=== PATIENT | male | born 1975 | race Caucasian/White ===

== ENCOUNTER 2020-12-20 13:16 | Emergency (ER) | payer OTHER, SELFPAY ==
[2020-12-20 13:17] VITALS: BP 161/98; PULSE 83; RESP 18; TEMP 35.8; O2SAT 97; BMI 67.3
--- NOTE | 2020-12-20 13:43 | EKG12_ITS ---
Test Reason : SOB Blood Pressure : / mmHG Vent. Rate : 078 BPM Atrial Rate : 078 BPM P-R Int : 156 ms QRS Dur : 096 ms QT Int : 404 ms P-R-T Axes : 050 061 009 degrees QTc Int : 460 ms Poor data quality, interpretation may be adversely affected Normal sinus rhythm Normal ECG Confirmed by JACKIE COVINGTON, JONATHAN ([id number]), editor producer JESS FIGUEROA ([id number]) on 12/24/2020 1:58:11 PM Referred By: ZAYRA Confirmed By:JONATHAN MEJIA MD
--- NOTE | 2020-12-20 13:44 | EDS_ITS ---
HPI History of Present Illness Chief Complaint: Shortness of Breath Informant: patient Onset/Context/Timing Onset: Today (For 5 or 6 hours now since he got up this morning) Context: gradual Timing: Continuous Quality: Positive for - (Wheezing, shortness of breath) Current Severity: Moderate Maximum Severity: Moderate Worsened by: Exertion and Coughing Relieved by: Albuterol (Partially and temporarily only) Associated Symptoms Chest Pain: Positive for Pressure and Tightness Narrative Narrative: Patient with chest pain or shortness of breath this morning it felt like his asthma. He denies any recent illness, he attributes likely being outside in the pollen along with seasonal allergies flaring up his symptoms. He had Covid in May, relatively mild illness and recovered okay, has had no vaccines yet. No known history of heart coronary disease. Prior similar symptoms: Yes (Asthma/COPD) [facility] Medical History (Updated 12/20/20 @ 15:[address] Justin Diamond MD) Asthma Home Medications prednisone 40 mg PO DAILY #8 tablet 12/20/20 [Rx Last Taken Unknown] Allergy/AdvReac Type Severity Reaction Status Date / Time azithromycin [From Zithromax] Allergy Swelling Verified 12/20/20 13:19 codeine Allergy Swelling Verified 12/20/20 13:19 Latex, Natural Rubber Allergy Anaphylaxis Verified 12/20/20 13:19 ondansetron [From Zofran] Allergy Vomiting Verified 12/20/20 13:19 Social History Smoking Status: Current every day smoker ROS [facility] ED Constitutional Constitutional ED: Denies chills or fever(s) Eyes Eyes: Denies change in vision or diplopia ENT ENT ED: Denies rhinorrhea or sore throat Cardiovascular Cardiovascular: Reports as per HPI and chest pain; Denies palpitations Respiratory/Chest Respiratory/Chest: Reports as per HPI, cough, dyspnea and other Details: Coughs some clear phlegm up every morning due to wearing CPAP overnight, no changes today or worsening or changes in color/blood Gastrointestinal Gastrointestinal: Denies abdominal pain, diarrhea, nausea or vomiting Genitourinary Genitourinary ED: Denies dysuria or hematuria Musculoskeletal Musculoskeletal: Denies back pain or neck pain Integumentary Denies abscess or rash Neurologic Neurologic: Denies headache(s), paresthesias or weakness Psychiatric Psychiatric: Denies anxiety or suicidal thoughts EXAM Physical Exam Const Vital Signs: 12/20/20 13:17 12/20/20 14:06 Temperature 96.4 F L Temperature Source Temporal Pulse Rate 83 85 Respiratory Rate 18 18 Respiratory Effort Normal Respiratory Depth Normal Respiratory Pattern Normal Blood Pressure 161/98 H Blood Pressure Mean 119 Pulse Ox 97 94 Oxygen Delivery Method Room Air Room Air Positive well nourished, well developed and obese Constitutional Narrative: Speaking in full sentences no respiratory distress General Appearance ED: well developed and NAD Nutritional Appearance: obese HEENT Reports moist mucous membranes normocephalic and atraumatic Eyes PERRL and EOMs intact bilaterally Neck full ROM and supple Resp normal respiratory effort and clear to auscultation bilaterally Cardio regular rate, regular rhythm and no murmurs GI non-tender and non-distended Auscultation: normoactive bowel sounds Palpation: soft Back/Spine no CVA tenderness General Back: other FROM Extremity normal to inspection General Extremety ED: Negative for edema, pulses abnormal or tenderness General Extremity: Negative for edema or pulses abnormal Neuro oriented x3, CN's II-XII intact bilaterally and no sensory deficits noted Sensorium / Orientation: awake and alert Motor Exam: strength 5/5 throughout Skin no rashes or lesions noted and no wounds MDM MDM MDM Narrative Medical decision making narrative: X-ray and EKG are both normal, patient feels much better with regards to his dyspnea and chest discomfort after several nebulizer treatments. I believe this is consistent with asthma exacerbation, he is a diabetic and is on Jardiance once daily, we discussed the possibilities of his blood sugars elevating with prednisone, and mutually agreed to put him on half dose prednisone, 20 mg daily for 5 days which will probably help with his allergies as well. He is comfortable with that plan. Radiography Chest X-Ray - ED: 1 View, Read by ED Physician, No Acute Disease and No Infiltrates Diagnostic Testing: Radiology Impression Chest X-Ray 12/20/20 14:16 IMPRESSION: Normal x-ray examination of the chest. Electronically Signed: Tan Duarte MD at 14:32 EDT , Service support , EKG Initial EKG: Attestation: I personally reviewed and interpreted this EKG as follows: Interpretation: Sinus Rhythm and No Acute Injury Pattern Prior EKG tracings: available for review Prior: Unchanged Discharge Plan Triage Chief Complaint: Shortness of Breath ED Provider: Justin Diamond Dx/Rx/DC Orders Clinical Impression: Acute asthma exacerbation Instructions: ED Asthma, Acute (Adult) Prescriptions: New prednisone 20 MG tablet 40 mg PO DAILY Qty: 8 RF: 0 Stand Alone Forms: ED Work / School Excuse Primary Care Provider: Care Physician,No Primary Referrals: Care Physician,No Primary [Primary Care Provider] - (Your doctor as needed or return to the ER if worse despite prednisone) Disposition Disposition: Home, self care
[2020-12-20] MEDS: Ipratropium/Albuterol Sulfate 3 ML AMPUL.NEB INHALATION (13:59)
[2020-12-20] MEDS: Albuterol 2.5 MG/3 ML VIAL.NEB. INHALATION ×2 (14:04→14:05)
[2020-12-20 14:06] VITALS: PULSE 85; RESP 18; O2SAT 94
--- NOTE | 2020-12-20 14:16 | RAD_ITS ---
STUDY: X-RAY CHEST REASON FOR EXAM: Male, 45 years old. Cp/sob TECHNIQUE: Single AP portable view of the chest. COMPARISON: None. FINDINGS: The lungs are clear and expanded. There is no demonstrated pleural abnormality. Normal size heart. Normal mediastinum and julianne. Normal visualized pulmonary arteries. Normal visualized aortic arch and descending thoracic aorta. Normal visualized thoracic spine. Normal visualized ribs, clavicles, and shoulders. There is no demonstrated abnormality of the visualized soft tissue structures of the upper abdomen. RAD/Chest 1 View (Portable) IMPRESSION: Normal x-ray examination of the chest. Electronically Signed: Tan Duarte MD at 14:32 EDT , Service support ,
[2020-12-20] MEDS: predniSONE 20 MG Tablet PO (16:02)
[2020-12-20 16:09] VITALS: BP 161/98; PULSE 88; RESP 18; O2SAT 97
== END 2020-12-20 16:11 | disposition home or self-care (01) ==
PROVIDERS: Emergency Provider Emergency Medicine
DX: J45.901 Unspecified asthma with (acute) exacerbation (principal); E66.9 Obesity, unspecified; F17.200 Nicotine dependence, unspecified, uncomplicated; Z79.52 Long term (current) use of systemic steroids; Z79.899 Other long term (current) drug therapy
CPT/HCPCS: 71045; 93005; 94640; 99251; 99283; A4216; G0463

== ENCOUNTER 2021-06-29 11:25 | Emergency (ER) | payer OTHER, SELFPAY ==
[2021-06-29 11:26] VITALS: BP 154/116; PULSE 82; RESP 18; TEMP 35.8; O2SAT 94; BMI 61.7
[2021-06-29 11:41] VITALS: BP 159/98; PULSE 82; RESP 15; O2SAT 96
--- NOTE | 2021-06-29 12:12 | VDLE_ITS ---
Reason For Study: Pain Procedure LEFT This is a venous duplex using B-mode, color GSV is normal. flow and spectral Doppler. CFV is compressible, spontaneous, phasic, Exam performed portable in ED. competent, and demonstrates normal A preliminary report was called and/or faxed augmentation. to Shayna. FV is compressible, spontaneous, phasic, competent and demonstrates normal augmentation. POP V is compressible, spontaneous, phasic, competent and demonstrates normal augmentation. T/P Trunk is compressible. PTV is compressible. LT PerV is compressible. VL/Venous Duplex US, Unilateral Interpretation Summary There is no evidence of left lower extremity deep vein thrombosis. Left great s aphenous vein appears patent and compressible segmentally. Ordering Physician: Airam Corral Performed By: Pao Huber RVT
--- NOTE | 2021-06-29 12:13 | EKG12_ITS ---
Test Reason : CP Blood Pressure : / mmHG Vent. Rate : 081 BPM Atrial Rate : 081 BPM P-R Int : 146 ms QRS Dur : 094 ms QT Int : 388 ms P-R-T Axes : 052 058 -05 degrees QTc Int : 450 ms Normal sinus rhythm Normal ECG Confirmed by JACKIE COVINGTON, JONATHAN ([id number]), features editor JESS FIGUEROA ([id number]) on 06/30/2021 10:40:32 AM Referred By: CLEMENTE Confirmed By:JONATHAN MEJIA MD
--- NOTE | 2021-06-29 12:13 | RAD_ITS ---
STUDY: X-RAY CHEST REASON FOR EXAM: Male, 46 years old. CP TECHNIQUE: Single AP portable view of the chest. COMPARISON: December 20, 2020 chest x-ray FINDINGS: The lungs are clear and expanded. Stable lung markings. There is no demonstrated pleural abnormality. Normal size heart. Normal mediastinum and julianne. Normal visualized pulmonary arteries. Normal visualized aortic arch and descending thoracic aorta. Normal visualized thoracic spine. Normal visualized ribs, clavicles, and shoulders. There is no demonstrated abnormality of the visualized soft tissue structures of the upper abdomen. RAD/Chest 1 View (Portable) IMPRESSION: No demonstrated acute cardiopulmonary process. Electronically Signed: Pamela Casarez MD at 12:57 EST Tel , Service support ,
--- NOTE | 2021-06-29 12:14 | EDS_ITS ---
HPI History of Present Illness Chief Complaint: Chest Pain Informant: patient Onset/Context/Timing Onset: Today Context: Gradual Onset Timing: Waxes and wanes Quality: Squeezing Location: Left chest Current Severity: Mild Maximum Severity: Mild Narrative Narrative: Patient presents due to concerns for cellulitis as well as chest pain. He states yesterday he developed left lower leg redness and pain. He had subjective fever overnight along with chills. Early this morning he woke with some chest pain that he describes as a squeezing sensation. He states he had similar chest pain in the past and has had negative work-up. He reports having a normal stress test last year. [facility] Medical History COPD (chronic obstructive pulmonary disease) Diabetes Home Medications prednisone 20 mg PO DAILY #4 tab 12/20/20 [Rx Last Taken Unknown] Jardiance 06/29/21 [History Last Taken Unknown] Trelegy Ellipta 06/29/21 [History Last Taken Unknown] albuterol sulfate 06/29/21 [History Last Taken Unknown] cephalexin 500 mg PO Q6H 10 Days #40 cap 06/29/21 [Rx Last Taken Unknown] lisinopril 20 mg PO/SL DAILY 06/29/21 [History Last Taken Unknown] omeprazole 40 mg PO/SL BID 06/29/21 [History Last Taken Unknown] sulfamethoxazole-trimethoprim [Bactrim DS] 1 tab PO BID #20 tab 06/29/21 [Rx Last Taken Unknown] Allergy/AdvReac Type Severity Reaction Status Date / Time azithromycin [From Zithromax] Allergy Swelling Verified 06/29/21 11:26 codeine Allergy Swelling Verified 06/29/21 11:26 Latex, Natural Rubber Allergy Anaphylaxis Verified 06/29/21 11:26 ondansetron [From Zofran] Allergy Vomiting Verified 06/29/21 11:26 Social History Smoking Status: Never smoker ROS ROS ED Constitutional Constitutional ED: Denies chills or fever(s) Eyes Eyes: Denies change in vision ENT ENT ED: Denies sore throat Cardiovascular Cardiovascular: Reports chest pain Respiratory/Chest Respiratory/Chest: Reports dyspnea; Denies cough Gastrointestinal Gastrointestinal: Denies abdominal pain, diarrhea, nausea or vomiting Genitourinary Genitourinary ED: Denies dysuria Musculoskeletal Musculoskeletal: Reports arthralgias and myalgias; Denies back pain Integumentary Reports rash Neurologic Neurologic: Denies headache(s) or weakness Allergic/Immunologic Allergic/Immunologic ED: Denies urticaria EXAM Physical Exam Const Vital Signs: 06/29/21 11:26 06/29/21 11:41 06/29/21 11:42 Temperature 96.4 F L Temperature Source Temporal Pulse Rate 82 82 Respiratory Rate 18 15 Respiratory Effort Normal Blood Pressure 154/116 H 159/98 H Blood Pressure Mean 128 118 Pulse Ox 94 96 Oxygen Delivery Method Room Air Room Air 06/29/21 13:25 06/29/21 13:53 06/29/21 15:02 Temperature 96.5 F L 97.4 F L Temperature Source Temporal Temporal Pulse Rate 80 78 83 Respiratory Rate 12 21 H 17 Respiratory Effort Blood Pressure 145/90 H 145/90 H 122/75 H Blood Pressure Mean 108 108 90 Pulse Ox 96 94 96 Oxygen Delivery Method Room Air Room Air Room Air 06/29/21 15:43 Temperature Temperature Source Pulse Rate 78 Respiratory Rate 19 H Respiratory Effort Blood Pressure 140/95 H Blood Pressure Mean Pulse Ox 99 Oxygen Delivery Method Positive obese Nutritional Appearance: obese HEENT Reports moist mucous membranes Eyes PERRL and EOMs intact bilaterally Neck no lymphadenopathy and supple Chest Wall inspection of chest normal and palpation of chest normal Resp normal respiratory effort and clear to auscultation bilaterally Cardio regular rate and regular rhythm GI normal to inspection, nondistended, normoactive bowel sounds and non-tender Palpation: soft Extremity Extremity Narrative: Erythema and warmth over the distal portion of the left lower leg. No open wounds appreciated. Neuro oriented x3 Sensorium / Orientation: alert Skin Skin Narrative: Left lower extremity erythema as noted above. MDM MDM MDM Narrative Medical decision making narrative: Venous ultrasound of the left lower extremity obtained. EKG, chest x-ray, lab work obtained. Lab Data Attestation: I reviewed the patient's lab results. Labs: Laboratory Results - last 24 hr 06/29/21 06/29/21 06/29/21 11:40 11:40 11:40 WBC 6.8 RBC 5.58 Hgb 15.1 Hct 46.4 MCV 83.2 MCH 27.1 MCHC 32.5 RDW Std Deviation 40.4 RDW Coeff of Antonia 13.4 Plt Count 180 MPV 10.7 Immature Gran % (Auto) 0.700 Neut % (Auto) 69.6 Lymph % (Auto) 22.6 [place] % (Auto) 6.1 Eos % (Auto) 0.7 Baso % (Auto) 0.3 Absolute Neuts (auto) 4.7 Absolute Lymphs (auto) 1.53 Nucleated RBC % 0 D-Dimer Quant (PE/DVT) 0.54 H* Sodium 137 Potassium 3.4 L Chloride 101 Carbon Dioxide 27.0 Anion Gap 9 BUN 11 Creatinine 0.84 Estim Creat Clear Calc 93.97 Est GFR (MDRD) Af Amer 127 Est GFR (MDRD) Non-Af 105 BUN/Creatinine Ratio 13.1 Glucose 357 H Calcium 8.9 Troponin I High Sens 4 Radiography Chest X-Ray - ED: 1 View, Read by ED Physician and Chronic Changes Diagnostic Testing: Clinical Impression(s) from Imaging Studies Chest X-Ray 06/29/21 12:13 IMPRESSION: No demonstrated acute cardiopulmonary process. Electronically Signed: Pamela Casarez MD at 12:57 EST Tel , Service support , Chest CTA 06/29/21 13:21 IMPRESSION: Normal CTA chest examination, without a demonstrated pulmonary embolism or arterial dissection. Enlarged lobulated appearing left greater than right thyroid gland slight tracheal deviation with lobulation extending into the upper mediastinum recommend further evaluation with thyroid ultrasound and laboratory values. Electronically Signed: Pamela Casarez MD at 14:33 EST Tel , Service support , EKG Initial EKG: Attestation: I personally reviewed and interpreted this EKG as follows: Interpretation: Sinus Rhythm (Sinus 81 with no acute ischemia.) Treatment and Re-Evaluation Comments:: Venous ultrasound of the left leg reveals no evidence of DVT. Lab work reveals normal white count. Troponin negative. D-dimer elevated at 0.54. In light of this CTA of the chest is obtained. No evidence of PE or dissection noted. There is abnormal appearance to the thyroid. This was discussed with him and I recommended close follow-up with his physician for further work-up. Patient states that he is new to this area does not yet have a physician. He was given a pamphlet physician directory so he can follow-up with a local PCP. Patient is treated with a course of Bactrim and Keflex for his left lower extremity cellulitis. Discharge Plan Triage Chief Complaint: Chest Pain ED Provider: Airam Corral Dx/Rx/DC Orders Clinical Impression: Cellulitis, Chest pain Instructions: Cellulitis, ED Chest Pain, Uncertain Cause Prescriptions: New sulfamethoxazole-trimethoprim [Bactrim DS] 800-160 mg tablet 1 tab PO BID Qty: 20 RF: 0 cephalexin 500 mg capsule 500 mg PO Q6H 10 Days Qty: 40 RF: 0 No Action prednisone 20 mg tablet 20 mg PO DAILY Qty: 4 RF: 0 Jardiance RF: 0 Trelegy Ellipta RF: 0 albuterol sulfate RF: 0 lisinopril 20 mg PO/SL DAILY RF: 0 omeprazole 40 mg PO/SL BID RF: 0 Primary Care Provider: Care Physician,No Primary Referrals: Care Physician,No Primary [Primary Care Provider] - Activity Restrictions/Additional Instructions: Provider directory supplied of local physicians for follow-up. Disposition Disposition: Home, Self Care Discharge Date/Time: 06/29/21 15:45
[2021-06-29 12:32] LABS: Absolute Lymphocyte Count 1.53 X10^3/uL (0.83-4.51); Absolute Neutrophil Count 4.7 X10^3/uL (2.0-7.7); Basophil# 0.02 X10^3/uL; Basophil% 0.3 % (0-1); Eosinophil# 0.05 X10^3/uL; Eosinophils% 0.7 % (0-5); Hematocrit 46.4 % (40-54); Hemoglobin 15.1 g/dL (13.0-16.5); Lymphocyte # 1.53 X10^3/ul (0.83-4.51); Lymphocyte % 22.6 % (19-41); Mean Corp Hgb Conc 32.5 g/dL (32-36); Mean Corpuscular Hgb 27.1 pg (27.0-32.0); Mean Corpuscular Volume 83.2 fL (80-94); Mean Platelet Vol. 10.7 fl (6.2-12.0); Monocyte# 0.41 X10^3/uL; Monocyte% 6.1 % (0-10); NRBC Flagged by Analyzer 0 % (0-5); Neutrophil % 69.6 % (47-70); Platelet Count 180 K/mm3 (150-450); RBC Distribution Width CV 13.4 % (11.6-14.6); RBC Distribution Width SD 40.4 fl (35.1-43.9); Red Blood Count 5.58 M/mm3 (4.6-6.2); White Blood Count 6.8 K/mm3 (4.4-11.0)
[2021-06-29 12:42] LABS: D-Dimer Quantitative (DVT/PE) 0.54 FEU/ug/m (0.27-0.49)
[2021-06-29 12:44] LABS: Anion Gap 9 (5-15); BUN 11 mg/dL (7-18); BUN/Creat Ratio 13.1 RATIO (10-20); Calcium,Total 8.9 mg/dL (8.5-10.1); Chloride 101 mmol/L (98-107); Creatinine, Serum 0.84 mg/dL (0.70-1.30); EST Glomerular Filtration Rate 105 mL/min (>60); Est Glom Filt Rate - Afr Amer 127 mL/min (>60); Estimated Creatinine Clearance 93.97 ml/min; Glucose 357 mg/dL (74-106); Potassium 3.4 mmol/L (3.5-5.1); Sodium Level 137 mmol/L (136-145); Troponin-I HS 4 pg/mL (3.0-78.0)
--- NOTE | 2021-06-29 13:21 | CT_ITS ---
STUDY: CTA CHEST REASON FOR EXAM: Male, 46 years old. CP, elevated d-dimer RADIATION DOSAGE (If Supplied By Facility): CTDIvol = ( 10.13 ) mGy, DLP = ( 1134.32 ) mGycm TECHNIQUE: The examination was performed with the intravenous administration of IV 100mL Isovue-370. Post-processing of the angiographic images was performed, with multiplanar reformation and 3D reconstruction. Individualized dose optimization techniques were used for this CT. COMPARISON: None. FINDINGS: There is limited enhancement of the main pulmonary artery and right and left pulmonary arteries. There is limited enhancement of the bilateral peripheral pulmonary arteries. There is no demonstrated pulmonary embolism. Normal thoracic aorta and visualized great vessels. There is no demonstrated aortic dissection. Normal heart and pericardium. There are a few nonspecific subcentimeter mediastinal lymph nodes. There is a enlarged lobulated appearance of the thyroid gland partially extending into the upper mediastinum. Slight rightward tracheal deviation. Normal hilar regions. Normal visualized bronchi. The lungs are well expanded. Normal pulmonary parenchyma. Normal pleura. Normal chest wall structures. There are degenerative changes of thoracic spine. The liver is enlarged and fatty infiltrated. CT/CTA Chest W/WO Contrast IMPRESSION: Normal CTA chest examination, without a demonstrated pulmonary embolism or arterial dissection. Enlarged lobulated appearing left greater than right thyroid gland slight tracheal deviation with lobulation extending into the upper mediastinum recommend further evaluation with thyroid ultrasound and laboratory values. Electronically Signed: Pamela Casarez MD at 14:33 EST Tel , Service support ,
[2021-06-29 13:25] VITALS: BP 145/90; PULSE 80; RESP 12; O2SAT 96
[2021-06-29 13:53] VITALS: BP 145/90; PULSE 78; RESP 21; TEMP 35.8; O2SAT 94
[2021-06-29 15:02] VITALS: BP 122/75; PULSE 81; PULSE 83; RESP 17; TEMP 36.3; O2SAT 96
[2021-06-29] MEDS: Cephalexin 250 MG Capsule 500 MG PO (15:39)
[2021-06-29] MEDS: Smz/Tmp Ds Tablet 1 TABLET PO (15:40)
[2021-06-29 15:43] VITALS: BP 140/95; PULSE 78; RESP 19; O2SAT 99
== END 2021-06-29 15:45 | disposition home or self-care (01) ==
PROVIDERS: Emergency Provider Emergency Medicine
DX: R07.9 Chest pain, unspecified (principal); L03.116 Cellulitis of left lower limb; J44.9 Chronic obstructive pulmonary disease, unspecified; E11.9 Type 2 diabetes mellitus without complications; Z79.52 Long term (current) use of systemic steroids
CPT/HCPCS: 71045; 71275; 80048; 84484; 85025; 85379; 87040; 93005; 93971; 96372; 99284; Q9967; A4216

== ENCOUNTER 2021-10-30 10:13 | Emergency (ER) | payer MEDICAID, SELFPAY ==
[2021-10-30 10:14] VITALS: BP 166/91; PULSE 101; RESP 18; TEMP 37.3; O2SAT 96; BMI 60.7
[2021-10-30 10:54] VITALS: BP 166/91; PULSE 101; RESP 18; TEMP 37.3; O2SAT 96
--- NOTE | 2021-10-30 11:07 | EX.ED.DYSGE1 ---
HPI History of Present Illness Chief Complaint: Cellulitis Detail of Chief Complaint: Concern for cellulitis to left leg Informant: patient Narrative Narrative: Patient presents to the emergency department with concern for cellulitis to his left lower extremity. Patient states that he has had similar episodes for 5 other times. Patient woke up with redness to the anterior aspect of his left lower extremity. Patient's had some mild chills. He denies fever. He wanted to catch it early. He denies any trauma to his left lower extremity. Patient is a diabetic. Prior similar symptoms: Yes PFSH PFSH Medical History (Updated 10/30/21 @ 11:[address] Kareem Springer, DO) COPD (chronic obstructive pulmonary disease) Diabetes Hypertension Home Medications prednisone 20 mg PO DAILY #4 tab 12/20/20 [Rx Last Taken Unknown] Jardiance 06/29/21 [History Last Taken Unknown] Trelegy Ellipta 06/29/21 [History Last Taken Unknown] albuterol sulfate 06/29/21 [History Last Taken Unknown] cephalexin 500 mg PO Q6H 10 Days #40 cap 06/29/21 [Rx Last Taken Unknown] lisinopril 20 mg PO/SL DAILY 06/29/21 [History Last Taken Unknown] omeprazole 40 mg PO/SL BID 06/29/21 [History Last Taken Unknown] sulfamethoxazole-trimethoprim [Bactrim DS] 1 tab PO BID #20 tab 06/29/21 [Rx Last Taken Unknown] cephalexin 500 mg PO Q6 #40 capsule 10/30/21 [Rx Last Taken Unknown] sulfamethoxazole-trimethoprim 1 tab PO BID #20 tablet 10/30/21 [Rx Last Taken Unknown] Allergy/AdvReac Type Severity Reaction Status Date / Time azithromycin [From Zithromax] Allergy Swelling Verified 10/30/21 10:16 codeine Allergy Swelling Verified 10/30/21 10:16 Latex, Natural Rubber Allergy Anaphylaxis Verified 10/30/21 10:16 ondansetron [From Zofran] Allergy Vomiting Verified 10/30/21 10:16 BEE STING Allergy Hives Uncoded 10/30/21 10:17 Surgical History (Updated 10/30/21 @ 10:57 by Annabelle Palomo) History of carpal tunnel repair History of cholecystectomy History of meniscectomy of right knee Social History Smoking Status: Never smoker ROS ROS ED Constitutional Constitutional ED: Reports systems reviewed and no addt'l complaints, except as documented; Denies body ache(s), change in weight or chills Eyes Eyes: Denies acute decrease in peripheral vision, change in vision, double vision or loss of vision ENT ENT ED: Reports none; Denies ear pain, lip swelling, loss taste/smell, neck pain, otalgia or sore throat Cardiovascular Cardiovascular: Reports none; Denies abdominal pain, chest pain with activity, leg edema, lightheadedness, palpitations, rapid heart rate or syncope Respiratory/Chest Respiratory/Chest: Reports none; Denies change in mental status, dry cough, dyspnea, hemoptysis, shortness of breath at rest or shortness of breath with exertion Gastrointestinal Gastrointestinal: Reports none; Denies abdominal pain, change in stool character, diarrhea, hematemesis, hematochezia, melena, rectal bleeding or vomiting Genitourinary Genitourinary ED: Reports none; Denies abdominal discomfort, anuria, dysuria, genital pain or polyuria Musculoskeletal Musculoskeletal: Reports none; Denies arthralgias, back pain, difficulty walking, extremity pain, muscle weakness or myalgias Integumentary Reports none and other Details: Redness to the left lower extremity ; Denies abscess or rash Neurologic Neurologic: Reports none; Denies abnormal gait, confusion, focal weakness, frequent falls, headache(s), loss of vision, numbness, paresthesias, radicular pain, vertigo or weakness Psychiatric Psychiatric: Reports systems reviewed and no addt'l complaints, except as documented and none; Denies behavioral changes, confusion, difficulty concentrating, hallucinations, suicidal ideation, tactile hallucinations or visual hallucinations Endocrine Endocrinology: Denies none, cold intolerance, excessive sweating, fatigue or heat intolerance Hematologic/Lymphatic Hematologic/Lymphatic: Reports none; Denies anemia, easy bleeding or easy bruising Allergic/Immunologic Allergic/Immunologic ED: Denies as per HPI, none, lip swelling, mouth swelling, throat swelling, tongue swelling or hives EXAM Physical Exam Const Vital Signs: 10/30/21 10:14 10/30/21 10:54 Temperature 99.1 F 99.1 F Temperature Source Temporal Temporal Pulse Rate 101 H 101 H Respiratory Rate 18 18 Blood Pressure 166/91 H 166/91 H Blood Pressure Mean 116 116 Pulse Ox 96 96 Oxygen Delivery Method Room Air Room Air Positive well nourished and well developed General Appearance ED: well developed and NAD HEENT Reports TM's clear and moist mucous membranes normocephalic and atraumatic; Negative for trauma or tenderness Tympanic Membrane ED: Yes TM's clear Eyes PERRL and EOMs intact bilaterally General Eye ED: Negative for pale conjunctiva or scleral icterus Neck no lymphadenopathy, supple and no JVD General: Negative for tenderness Chest Wall inspection of chest normal and palpation of chest normal Chest: Negative for tenderness Resp normal respiratory effort and clear to auscultation bilaterally Effort and Inspection: Negative for respiratory distress or pain with movement Auscultation: Negative for rhonchi, wheezes or diminished lung sounds Cardio regular rate, regular rhythm, S1 normal heart sound, S2 normal heart sound and no murmurs Peripheral Pulses: pulses 2+ throughout GI normal to inspection, nondistended, normoactive bowel sounds, soft to palpation, non-tender, non-distended and no masses Back/Spine no CVA tenderness and no thoracic nor lumbar tenderness Extremity Extremity Narrative: Patient has an area of erythema to the left distal anterior lower extremity with an area measuring approximately 10 x 6 cm. No lymphangitic streaking noted. Negative Homans' sign. No significant edema. General Extremety ED: Negative for edema General Extremity: Negative for edema Neuro oriented x3, CN's II-XII intact bilaterally, no sensory deficits noted and gait normal Sensorium / Orientation: awake, alert, oriented to person, oriented to place and oriented to time Motor Exam: strength 5/5 throughout and strength abnormal Psych mental status grossly normal Skin no rashes or lesions noted and no wounds MDM MDM MDM Narrative Medical decision making narrative: Patient will be started on Keflex and Bactrim. I do not feel any type of labs are indicated at this time as he looks well and cellulitic changes just started today. I did outline the area of erythema with marker. Patient advised to return if increased redness fevers chills and sweats or condition should worsen anyway. Discharge Plan Triage Chief Complaint: Cellulitis ED Provider: Kareem Springer Dx/Rx/DC Orders Clinical Impression: Cellulitis of left leg Instructions: ED Cellulitis Prescriptions: New sulfamethoxazole-trimethoprim [sulfamethoxazole-trimethoprim] 1 TABLET tablet 1 tab PO BID Qty: 20 RF: 0 cephalexin [cephalexin] 500 MG capsule 500 mg PO Q6 Qty: 40 RF: 0 No Action prednisone 20 mg tablet 20 mg PO DAILY Qty: 4 RF: 0 Jardiance RF: 0 Trelegy Ellipta RF: 0 albuterol sulfate RF: 0 lisinopril 20 mg PO/SL DAILY RF: 0 omeprazole 40 mg PO/SL BID RF: 0 sulfamethoxazole-trimethoprim [Bactrim DS] 800-160 mg tablet 1 tab PO BID Qty: 20 RF: 0 cephalexin 500 mg capsule 500 mg PO Q6H 10 Days Qty: 40 RF: 0 Primary Care Provider: Care Physician,No Primary Referrals: Chevy Arthur MD [STAFF PHYSICIAN] - 3-5 Days Care Physician,No Primary [Primary Care Provider] - Disposition Disposition: Home, Self Care
[2021-10-30] MEDS: Cephalexin 250 MG Capsule 500 MG PO (11:26)
[2021-10-30] MEDS: Smz/Tmp Ds Tablet 1 TABLET PO (11:26)
== END 2021-10-30 11:31 | disposition home or self-care (01) ==
PROVIDERS: Emergency Provider Emergency Medicine; Visit Provider Emergency Medicine
DX: L03.116 Cellulitis of left lower limb (principal); J44.9 Chronic obstructive pulmonary disease, unspecified; E11.9 Type 2 diabetes mellitus without complications; I10 Essential (primary) hypertension
CPT/HCPCS: 99283

== ENCOUNTER 2021-11-25 22:31 | Emergency (ER) | payer MEDICAID, SELFPAY ==
[2021-11-25 22:32] VITALS: BP 156/94; PULSE 99; RESP 18; TEMP 36.6; O2SAT 98; BMI 59.9
--- NOTE | 2021-11-25 23:17 | RAD_ITS ---
STUDY: X-RAY - LUMBAR SPINE REASON FOR EXAM: Male, 46 years old. pain TECHNIQUE: view(s) of the lumbar spine were obtained. COMPARISON: None FINDINGS: Normal lumbar lordosis. There is no substantial scoliosis. There is a normal alignment of the vertebrae. Normal vertebral bodies and endplates. Normal disc space heights. The soft tissue structures are unremarkable. RAD/Lumbar Spine 2 or 3 Views IMPRESSION: Normal x-ray examination of the lumbar spine. Electronically Signed: Andrew Cruz MD at 23:43 EDT ,
--- NOTE | 2021-11-25 23:17 | RAD_ITS ---
STUDY: X-RAY - THORACIC SPINE REASON FOR EXAM: Male, 46 years old. pain TECHNIQUE: 3 view(s) of the thoracic spine were obtained. COMPARISON: None. FINDINGS: Normal kyphosis of the thoracic spine. There is no substantial scoliosis. Normal thoracic vertebrae and endplates. Normal disc space heights. The soft tissue structures are unremarkable. RAD/Thoracic Spine 3 Views IMPRESSION: Normal x-ray examination of the thoracic spine. Electronically Signed: Andrew Cruz MD at 23:48 EDT ,
--- NOTE | 2021-11-25 23:24 | EX.ED.DYSGE1 ---
HPI History of Present Illness Chief Complaint: Back Narrative Narrative: Patient is a 46-year-old male who states 5 days ago he noticed some pain in his right back after doing some mild activity. He states as time is past he has noticed that the pain has increased and is now moving down into his right buttocks region and also shooting down his leg. He denies any loss of bowel or bladder control or IV drug use. He denies any hematuria or dysuria. He denies any direct trauma but states that he has been taking [id number] medications with minimal symptom improvement and secondary to this comes in for evaluation. [facility] Medical History COPD (chronic obstructive pulmonary disease) Diabetes Hypertension Home Medications prednisone 20 mg PO DAILY #4 tab 12/20/20 [Rx Last Taken Unknown] Jardiance 06/29/21 [History Last Taken Unknown] Trelegy Ellipta 06/29/21 [History Last Taken Unknown] albuterol sulfate 06/29/21 [History Last Taken Unknown] cephalexin 500 mg PO Q6H 10 Days #40 cap 06/29/21 [Rx Last Taken Unknown] lisinopril 20 mg PO/SL DAILY 06/29/21 [History Last Taken Unknown] omeprazole 40 mg PO/SL BID 06/29/21 [History Last Taken Unknown] sulfamethoxazole-trimethoprim [Bactrim DS] 1 tab PO BID #20 tab 06/29/21 [Rx Last Taken Unknown] cephalexin 500 mg PO Q6 #40 capsule 10/30/21 [Rx Last Taken Unknown] sulfamethoxazole-trimethoprim 1 tab PO BID #20 tablet 10/30/21 [Rx Last Taken Unknown] methocarbamol 1,000 mg PO 4X/DAY PRN PRN #56 tab 11/26/21 [Rx Last Taken Unknown] oxycodone-acetaminophen [Percocet] 1 tab PO Q6H PRN 3 Days #12 tab 11/26/21 [Rx Last Taken Unknown] Allergy/AdvReac Type Severity Reaction Status Date / Time azithromycin [From Zithromax] Allergy Swelling Verified 10/30/21 10:16 codeine Allergy Swelling Verified 10/30/21 10:16 Latex, Natural Rubber Allergy Anaphylaxis Verified 10/30/21 10:16 ondansetron [From Zofran] Allergy Vomiting Verified 10/30/21 10:16 BEE STING Allergy Hives Uncoded 10/30/21 10:17 Surgical History (Updated 10/30/21 @ 10:57 by Annabelle Palomo) History of carpal tunnel repair History of cholecystectomy History of meniscectomy of right knee Social History Smoking Status: Never smoker ROS ROS ED Constitutional Constitutional ED: Denies chills or fever(s) ENT ENT ED: Denies sore throat Cardiovascular Cardiovascular: Denies chest pain Respiratory/Chest Respiratory/Chest: Denies cough or dyspnea Gastrointestinal Gastrointestinal: Denies abdominal pain, diarrhea, nausea or vomiting Genitourinary Genitourinary ED: Denies dysuria or hematuria Musculoskeletal Musculoskeletal: Reports back pain; Denies myalgias Integumentary Denies rash Neurologic Neurologic: Denies headache(s) or paresthesias Hematologic/Lymphatic Hematologic/Lymphatic: Denies easy bleeding or easy bruising EXAM Physical Exam Const Vital Signs: 11/25/21 22:32 Temperature 97.8 F Temperature Source Temporal Pulse Rate 99 Respiratory Rate 18 Blood Pressure 156/94 H Blood Pressure Mean 114 Pulse Ox 98 Oxygen Delivery Method Room Air Positive well nourished and well developed General Appearance ED: well developed Eyes PERRL and EOMs intact bilaterally Neck supple Resp normal respiratory effort and clear to auscultation bilaterally Cardio regular rate and regular rhythm Back/Spine Back/Spine Narrative: No bony deformity or step-off of the thoracic or lumbar spine but there is midline lower thoracic and upper lumbar tenderness palpation. No saddle anesthesia. Negative straight leg raise. No clonus or Babinski. Patellar reflexes are plus 1 out of 4 bilateral. Patient has pain with palpation and muscle spasm of the right paralumbar muscle belly region over top the psoas muscle and also pain on palpation over top the piriformis muscle. There is a positive Mira sign on the right as well. Extremity normal to inspection Neuro oriented x3 and CN's II-XII intact bilaterally Sensorium / Orientation: alert Motor Exam: strength 5/5 throughout Psych mental status grossly normal Skin no rashes or lesions noted Skin Narrative: No overlying soft tissue changes to suggest trauma or infection MDM MDM MDM Narrative Medical decision making narrative: Patient presented to the ER with right-sided back pain that was worse with motion. It has been gradually increasing over the past 5 days but he has no risk factors for cauda equina or epidural abscess and no physical exam findings concerning for nerve impingement. As he did have midline back pain elected to perform x-rays. These revealed no acute finding. Therefore at this time patient symptoms are most consistent with lumbosacral strain and piriformis syndrome and he can be given symptomatic medications and discharged home. Radiography Diagnostic Testing: Clinical Impression(s) from Imaging Studies Lumbar Spine X-Ray 11/25/21 23:17 IMPRESSION: Normal x-ray examination of the lumbar spine. Electronically Signed: Andrew Cruz MD at 23:43 EDT , Thoracic Spine X-Ray 11/25/21 23:17 IMPRESSION: Normal x-ray examination of the thoracic spine. Electronically Signed: Andrew Cruz MD at 23:48 EDT , X-rays of the thoracic and lumbar spine as interpreted by the emergency medicine physician reveals no acute fracture or spondylolisthesis. There is mild arthritic changes but disc heights are preserved. Discharge Plan Triage Chief Complaint: Back ED Provider: Fredi Molina Dx/Rx/DC Orders Clinical Impression: Acute myofascial strain of lumbosacral region, Piriformis syndrome Instructions: Back Safety: Lifting, ED Back Sprain/Strain Prescriptions: New methocarbamol 500 mg tablet 1,000 mg PO 4X/DAY PRN PRN (Reason: Muscle pain/spasm) Qty: 56 RF: 1 oxycodone-acetaminophen [Percocet] 5-325 mg tablet 1 tab PO Q6H PRN (Reason: pain) 3 Days Qty: 12 RF: 0 No Action prednisone 20 mg tablet 20 mg PO DAILY Qty: 4 RF: 0 Jardiance RF: 0 Trelegy Ellipta RF: 0 albuterol sulfate RF: 0 lisinopril 20 mg PO/SL DAILY RF: 0 omeprazole 40 mg PO/SL BID RF: 0 sulfamethoxazole-trimethoprim [Bactrim DS] 800-160 mg tablet 1 tab PO BID Qty: 20 RF: 0 cephalexin 500 mg capsule 500 mg PO Q6H 10 Days Qty: 40 RF: 0 sulfamethoxazole-trimethoprim [sulfamethoxazole-trimethoprim] 1 TABLET tablet 1 tab PO BID Qty: 20 RF: 0 cephalexin [cephalexin] 500 MG capsule 500 mg PO Q6 Qty: 40 RF: 0 Stand Alone Forms: ED Work / School Excuse Primary Care Provider: Care Physician,No Primary Referrals: Thiago Silvestre MD [STAFF PHYSICIAN] - 1 Week if not improving Care Physician,No Primary [Primary Care Provider] - Activity Restrictions/Additional Instructions: Please continue to stretch and heat your back to help reduce pain and speed healing and return to the ER should you have any further concerns Disposition Disposition: Home, Self Care
[2021-11-25] MEDS: Ketorolac 30 MG/ML Syringe IM (23:57)
[2021-11-25] MEDS: Orphenadrine 60 MG/2 ML Ampul IM (23:57)
== END 2021-11-26 00:18 | disposition home or self-care (01) ==
PROVIDERS: Emergency Provider Emergency Medicine; Visit Provider Emergency Medicine
DX: S39.012A Strain of muscle, fascia and tendon of lower back, initial encounter (principal); J44.9 Chronic obstructive pulmonary disease, unspecified; E11.9 Type 2 diabetes mellitus without complications; I10 Essential (primary) hypertension; X58.XXXA Exposure to other specified factors, initial encounter
CPT/HCPCS: 72072; 72100; 99282

== ENCOUNTER 2021-12-03 11:43 | Emergency (ER) | payer MEDICAID, SELFPAY ==
[2021-12-03 11:44] VITALS: BP 144/88; PULSE 99; RESP 20; TEMP 36.3; O2SAT 92; BMI 59.0
--- NOTE | 2021-12-03 12:39 | RAD_ITS ---
STUDY: X-RAY CHEST REASON FOR EXAM: Male, 46 years old. Cough TECHNIQUE: Single AP portable view of the chest. COMPARISON: 06/29/2021 FINDINGS: The lungs are clear and expanded. There is no demonstrated pleural abnormality. Normal size heart. Normal mediastinum and julianne. Normal visualized pulmonary arteries. Normal visualized aortic arch and descending thoracic aorta. Normal visualized thoracic spine. Normal visualized ribs, clavicles, and shoulders. There is no demonstrated abnormality of the visualized soft tissue structures of the upper abdomen. RAD/Chest 1 View (Portable) IMPRESSION: Normal x-ray examination of the chest. Electronically Signed: Inocencio Gardner MD at 13:14 EDT ,
--- NOTE | 2021-12-03 12:40 | EX.ED.VIS.UR ---
HPI HPI - URI History of Present Illness Chief Complaint: Edema Detail of Chief Complaint: Left lower leg cellulitis. Also cough. Informant: patient Onset/Context/Timing Onset: Today and Yesterday Context: Gradual Onset Timing: Continuous Current Severity: Mild Maximum Severity: Mild Associated Symptoms Associated Symptoms: Positive for Nasal Congestion and Productive Cough; Negative for Sinus Pressure, Nausea, Vomiting, Chest Pain and Hemoptysis Narrative Narrative: 46-year-old male history of diabetes, COPD and asthma and hypertension. States that today he noticed discoloration of left lower leg redness of the skin which he thinks is early cellulitis which has had before. He says mildly painful and a low-grade temperature today of 99.8. Also states yesterday start developing sore throat cough and greenish sputum. Mild shortness of breath. Denies any nausea vomiting or diarrhea. No hemoptysis. No chest pain. Patient has had 2 vaccines for COVID. Prior similar symptoms: Yes Recent Illness/Hospitalization: No ROS ROS ED ROS Narrative Left lower leg redness. Cough with green sputum. Review of Systems ROS Unobtainable: Denies due to encephalopathy Constitutional Constitutional ED: Reports fever(s) and subjective Eyes Eyes: Denies change in vision ENT ENT ED: Denies ear pain Cardiovascular Cardiovascular: Denies chest pain or palpitations Respiratory/Chest Respiratory/Chest: Reports cough, dyspnea and sputum Gastrointestinal Gastrointestinal: Denies abdominal pain, diarrhea, nausea or vomiting Genitourinary Genitourinary ED: Denies dysuria Musculoskeletal Musculoskeletal: Denies myalgias Integumentary Reports rash; Denies abscess or Abrasions Neurologic Neurologic: Denies headache(s) Psychiatric Psychiatric: Denies depression Endocrine Endocrinology: Denies polyuria Hematologic/Lymphatic Hematologic/Lymphatic: Denies easy bruising Allergic/Immunologic Allergic/Immunologic ED: Denies urticaria PFSH PFSH Medical History COPD (chronic obstructive pulmonary disease) Diabetes Hypertension Home Medications prednisone 20 mg PO DAILY #4 tab 12/20/20 [Rx Last Taken Unknown] Jardiance 06/29/21 [History Last Taken Unknown] Trelegy Ellipta 06/29/21 [History Last Taken Unknown] albuterol sulfate 06/29/21 [History Last Taken Unknown] cephalexin 500 mg PO Q6H 10 Days #40 cap 06/29/21 [Rx Last Taken Unknown] lisinopril 20 mg PO/SL DAILY 06/29/21 [History Last Taken Unknown] omeprazole 40 mg PO/SL BID 06/29/21 [History Last Taken Unknown] sulfamethoxazole-trimethoprim [Bactrim DS] 1 tab PO BID #20 tab 06/29/21 [Rx Last Taken Unknown] cephalexin 500 mg PO Q6 #40 capsule 10/30/21 [Rx Last Taken Unknown] sulfamethoxazole-trimethoprim 1 tab PO BID #20 tablet 10/30/21 [Rx Last Taken Unknown] methocarbamol 1,000 mg PO 4X/DAY PRN PRN #56 tab 11/26/21 [Rx Last Taken Unknown] oxycodone-acetaminophen [Percocet] 1 tab PO Q6H PRN 3 Days #12 tab 11/26/21 [Rx Last Taken Unknown] cephalexin 500 mg PO Q6 #40 cap 12/03/21 [Rx Last Taken Unknown] prednisone 40 mg PO DAILY 5 Days #10 tab 12/03/21 [Rx Last Taken Unknown] sulfamethoxazole-trimethoprim [Bactrim DS] 1 tab PO BID 10 Days #20 tab 12/03/21 [Rx Last Taken Unknown] Allergy/AdvReac Type Severity Reaction Status Date / Time azithromycin [From Zithromax] Allergy Swelling Verified 12/03/21 11:44 codeine Allergy Swelling Verified 12/03/21 11:44 Latex, Natural Rubber Allergy Anaphylaxis Verified 12/03/21 11:44 ondansetron [From Zofran] Allergy Vomiting Verified 12/03/21 11:44 BEE STING Allergy Hives Uncoded 12/03/21 11:44 Surgical History History of carpal tunnel repair History of cholecystectomy History of meniscectomy of right knee Social History Smoking Status: Never smoker EXAM Physical Exam Narrative Exam Narrative: 46-year-old male vital signs are stable afebrile. Temperature here is 97.4. He does not look septic or toxic. Pulse ox 90% room air no hypoxia. H EENT exam unremarkable. Posterior pharynx normal. No erythema or exudate. No trouble swallowing. Neck nontender no meningismus. No lymphadenopathy. Lungs clear to auscultation bilaterally. Heart regular rhythm no murmur. Abdomen obese but soft nontender normal bowel sounds no peritoneal signs. Moving all 4 extremities. He has early cellulitis left lower leg and anterior aj. Calves nontender without cords. Right leg is unremarkable without cellulitis. Neurologically is awake and alert with no focal motor deficits. Const Vital Signs: 12/03/21 11:44 12/03/21 11:59 Temperature 97.4 F L Temperature Source Temporal Pulse Rate 99 Respiratory Rate 20 H Respiratory Depth Normal Respiratory Pattern Normal Blood Pressure 144/88 H Blood Pressure Mean 106 Pulse Ox 92 Oxygen Delivery Method Room Air Room Air Positive well nourished, well developed and obese; Negative for cachectic or contractures General Appearance ED: well developed and NAD; Negative for cachectic, contractures, cyanotic, diaphoretic or pallor Nutritional Appearance: obese; Negative for cachectic HEENT Reports moist mucous membranes normocephalic and atraumatic Eyes PERRL and EOMs intact bilaterally General Eye ED: Negative for pale conjunctiva or scleral icterus Neck no lymphadenopathy, supple, no meningeal signs and no JVD General: Negative for anterior neck swelling or lymphadenopathy Resp normal respiratory effort and clear to auscultation bilaterally Auscultation: Negative for rales, rhonchi or wheezes Cardio S1 normal heart sound, S2 normal heart sound and no murmurs Rate: regular rate Rhythm: regular rhythm GI non-tender, non-distended and no masses Inspection: Negative for abdominal distention Auscultation: normoactive bowel sounds Palpation: soft; Negative for tender or guarding Back/Spine no CVA tenderness and normal ROM General Back: Negative for CVA tenderness Cervical Spine: Negative for cervical spine tenderness Thoracic Spine / Upper Back: Negative for thoracic spinal tenderness Extremity normal to inspection and full ROM General Extremety ED: Negative for cyanosis or tenderness General Extremity: Negative for cyanosis Neuro oriented x3 Sensorium / Orientation: alert, oriented to person, oriented to place and oriented to time Motor Exam: strength 5/5 throughout Psych mental status grossly normal Attitude: No agitated Mood & Affect: Negative for depressed or tearful Skin Skin Narrative: She states that rash left lower leg consistent with cellulitis. General Skin Exam: Negative for jaundice or pallor Lesions: no lesions Rashes: No no rashes MDM MDM MDM Narrative Medical decision making narrative: 46-year-old diabetic male with URI symptoms. Chest x-ray and COVID testing obtained. For his left lower leg looks like early cellulitis. He will be treated with oral antibiotics and discharged home. Patient doing well repeat exam at 1:45 PM. To be discharged home on Bactrim and Keflex for his left lower leg cellulitis for 10 days. Return if worse. Follow-up to ensure its improving. To be placed on prednisone for 5 days for his URI and wheezing. Lab Data Attestation: I reviewed the patient's lab results. Lab results narrative: COVID test negative. Chest x-ray unremarkable. Blood sugar elevated 303. Labs: Laboratory Results - last 24 hr 12/03/21 12:44 POC Glucose 303 H Radiography Diagnostic Testing: Clinical Impression(s) from Imaging Studies Chest X-Ray 12/03/21 12:39 IMPRESSION: Normal x-ray examination of the chest. Electronically Signed: Inocencio Gardner MD at 13:14 EDT Reading Location ID and State: [address] [place] [address] , Service support , Chest x-ray, portable, single view interpreted myself and radiologist shows no acute abnormality. No infiltrate. Normal cardiac silhouette. Discharge Plan Triage Chief Complaint: Edema Other Complaint: Cellulitis Shortness of Breath ED Provider: Isael Ko Dx/Rx/DC Orders Clinical Impression: Viral URI, Cellulitis of left leg, History of diabetes mellitus, History of COPD, Hyperglycemia due to diabetes mellitus Instructions: ED Cellulitis, ED URI, Viral W/ Wheezing (Adult) Prescriptions: New prednisone 20 mg tablet 40 mg PO DAILY 5 Days Qty: 10 RF: 0 sulfamethoxazole-trimethoprim [Bactrim DS] 800-160 mg tablet 1 tab PO BID 10 Days Qty: 20 RF: 0 cephalexin 500 mg capsule 500 mg PO Q6 Qty: 40 RF: 0 No Action prednisone 20 mg tablet 20 mg PO DAILY Qty: 4 RF: 0 Jardiance RF: 0 Trelegy Ellipta RF: 0 albuterol sulfate RF: 0 lisinopril 20 mg PO/SL DAILY RF: 0 omeprazole 40 mg PO/SL BID RF: 0 sulfamethoxazole-trimethoprim [Bactrim DS] 800-160 mg tablet 1 tab PO BID Qty: 20 RF: 0 cephalexin 500 mg capsule 500 mg PO Q6H 10 Days Qty: 40 RF: 0 sulfamethoxazole-trimethoprim [sulfamethoxazole-trimethoprim] 1 TABLET tablet 1 tab PO BID Qty: 20 RF: 0 cephalexin [cephalexin] 500 MG capsule 500 mg PO Q6 Qty: 40 RF: 0 methocarbamol 500 mg tablet 1,000 mg PO 4X/DAY PRN PRN (Reason: Muscle pain/spasm) Qty: 56 RF: 1 oxycodone-acetaminophen [Percocet] 5-325 mg tablet 1 tab PO Q6H PRN (Reason: pain) 3 Days Qty: 12 RF: 0 Primary Care Provider: Care Physician,No Primary Referrals: Dony Abernathy MD [STAFF PHYSICIAN] - 1 Week Care Physician,No Primary [Primary Care Provider] - Activity Restrictions/Additional Instructions: Follow-up with either your primary care physician CAT scan or another primary care physician to be reevaluated to ensure your left lower leg cellulitis is improving. Watch your blood sugars closely today it was 303. The prednisone for your wheezing will increase your blood sugars. You need to watch them closely. Bactrim twice a day and Keflex 4 times a day for the next 10 days for the left lower leg cellulitis. Return if worse. Disposition Disposition: Home, Self Care
[2021-12-03 12:50] LABS: Bedside Glucose 303 mg/dL (74-106)
[2021-12-03] MEDS: Smz/Tmp Ds Tablet 1 TABLET PO (13:54)
[2021-12-03] MEDS: Cephalexin 250 MG Capsule 500 MG PO (13:54)
== END 2021-12-03 14:01 | disposition home or self-care (01) ==
PROVIDERS: Emergency Provider Emergency Medicine; Visit Provider Emergency Medicine
DX: L03.116 Cellulitis of left lower limb (principal); J44.9 Chronic obstructive pulmonary disease, unspecified; E11.65 Type 2 diabetes mellitus with hyperglycemia; I10 Essential (primary) hypertension; J06.9 Acute upper respiratory infection, unspecified
CPT/HCPCS: 71045; 82962; 87811; 99284

== ENCOUNTER 2021-12-28 17:26 | Emergency (ER) | payer MEDICAID, SELFPAY ==
[2021-12-28 17:27] VITALS: BP 146/76; PULSE 95; RESP 18; TEMP 37; O2SAT 97; BMI 60.9
--- NOTE | 2021-12-28 17:43 | EKG12_ITS ---
Test Reason : CP Blood Pressure : / mmHG Vent. Rate : 095 BPM Atrial Rate : 095 BPM P-R Int : 146 ms QRS Dur : 092 ms QT Int : 318 ms P-R-T Axes : 059 072 -10 degrees QTc Int : 399 ms Normal sinus rhythm Nonspecific T wave abnormality Abnormal ECG Confirmed by PEDRO COVINGTON, HOLLAND ([id number]), editor index JESS FIGUEROA ([id number]) on 12/30/2021 1:24:49 PM Referred By: NIKITA Confirmed By:HOLLAND VASQUEZ MD
--- NOTE | 2021-12-28 17:43 | ED.VIS.CHEST ---
HPI History of Present Illness Chief Complaint: Chest Pain Narrative Narrative: Patient presents with sharp stabbing left-sided parasternal chest pain. He has no pleuritic component. No back pain or tearing sensation. He has no lower extreme edema or calf pain. This started about a half an hour ago and its improving. He has had chest pain in the past and has had stress test a recent one was 2 years ago at an outside facility per him and it was unremarkable. [facility] Medical History COPD (chronic obstructive pulmonary disease) Diabetes Hypertension Home Medications Jardiance 25 mg PO/SL DAILY 06/29/21 [History Last Taken Unknown] omeprazole 80 mg PO/SL BID 06/29/21 [History Last Taken Unknown] aspirin 81 mg PO DAILY 12/28/21 [History Last Taken Unknown] insulin glargine-lixisenatide [Soliqua 100/33] 24 unit SUBCUT DAILY 12/28/21 [History Last Taken Unknown] losartan 50 mg PO DAILY 12/28/21 [History Last Taken Unknown] Allergy/AdvReac Type Severity Reaction Status Date / Time azithromycin [From Zithromax] Allergy Swelling Verified 12/28/21 17:27 codeine Allergy Swelling Verified 12/28/21 17:27 Latex, Natural Rubber Allergy Anaphylaxis Verified 12/28/21 17:27 ondansetron [From Zofran] Allergy Vomiting Verified 12/28/21 17:27 BEE STING Allergy Hives Uncoded 12/28/21 17:27 Surgical History History of carpal tunnel repair History of cholecystectomy History of meniscectomy of right knee Social History Smoking Status: Former smoker ROS ROS ED ROS Narrative Past medical history: Reviewed Medications: Reviewed Social history: Noncontributory Review of systems: All systems negative except as indicated General: No fever Eyes: No visual changes ENT: No upper airway congestion, normal voice Neck: No neck pain Cardiovascular: Chest pain as in HPI Respiratory: No shortness of breath or cough Gastrointestinal: No abdominal pain, nausea vomiting or diarrhea Genitourinary: No dysuria Musculoskeletal: Denies myalgias no difficulty with ambulation Skin: No rash Neurological: No memory loss, confusion or any focal weakness Psych: No recent behavioral changes Hematologic: No easy bleeding or easy bruising EXAM Physical Exam Narrative Exam Narrative: Physical exam General: Well nourished, Well developed, No Acute Distress Head: Normocephalic, Atraumatic Eyes: Conjunctiva not pale ENT: Moist mucous membranes Neck: Supple, Nontender, No lymphadenopathy Cardiovascular: Regular rate, Regular rhythm. No obvious murmur. Chest wall: Slightly reproducible chest wall pain. Respiratory: No distress, CTA bilaterally Abdomen: Soft, Nontender, Nondistended Back: Nontender, Normal Inspection. Negative for: CVA tenderness Extremities: Nontender, No edema Skin: Normal color, No rash Neurological: Alert, Normal Strength, Normal Sensation Psychological: Normal affect Const Vital Signs: 12/28/21 17:27 12/28/21 17:30 12/28/21 17:43 Temperature 98.6 F Temperature Source Oral Pulse Rate 95 Respiratory Rate 18 Respiratory Effort Normal Non-Labored Blood Pressure 146/76 H Blood Pressure Mean 99 Pulse Ox 97 Oxygen Delivery Method Room Air Room Air 12/28/21 19:43 Temperature Temperature Source Pulse Rate 90 Respiratory Rate 26 H Respiratory Effort Blood Pressure 122/74 H Blood Pressure Mean 90 Pulse Ox 98 Oxygen Delivery Method Heart Score History: Slightly/Non-Suspicious ECG: Nonspecific Repolarization Age: </= 45 years Risk Factors: >/= 3 Risk Factors or History of CAD Troponin: </= Normal Limit Score: 3 MDM MDM MDM Narrative Medical decision making narrative: Patient has a normal ED work-up. He appears well I believe he is stable for discharge. Lab Data Labs: Laboratory Results - last 24 hr 12/28/21 12/28/21 12/28/21 17:35 17:35 17:35 WBC 11.1 H RBC 5.36 Hgb 14.7 Hct 45.4 MCV 84.7 MCH 27.4 MCHC 32.4 RDW Std Deviation 41.7 RDW Coeff of Antonia 13.5 Plt Count 186 MPV 10.0 Immature Gran % (Auto) 0.400 Neut % (Auto) 83.4 H Lymph % (Auto) 10.7 L [place] % (Auto) 4.7 Eos % (Auto) 0.7 Baso % (Auto) 0.1 Absolute Neuts (auto) 9.3 H Absolute Lymphs (auto) 1.19 Nucleated RBC % 0 D-Dimer Quant (PE/DVT) 0.47 Sodium 138 Potassium 4.1 Chloride 105 Carbon Dioxide 26.0 Anion Gap 7 BUN 15 Creatinine 0.80 Estim Creat Clear Calc 102.50 Est GFR (MDRD) Af Amer 135 Est GFR (MDRD) Non-Af 111 BUN/Creatinine Ratio 18.8 Glucose 337 H Calcium 9.1 Troponin I High Sens 4 12/28/21 19:35 WBC RBC Hgb Hct MCV MCH MCHC RDW Std Deviation RDW Coeff of Antonia Plt Count MPV Immature Gran % (Auto) Neut % (Auto) Lymph % (Auto) [place] % (Auto) Eos % (Auto) Baso % (Auto) Absolute Neuts (auto) Absolute Lymphs (auto) Nucleated RBC % D-Dimer Quant (PE/DVT) Sodium Potassium Chloride Carbon Dioxide Anion Gap BUN Creatinine Estim Creat Clear Calc Est GFR (MDRD) Af Amer Est GFR (MDRD) Non-Af BUN/Creatinine Ratio Glucose Calcium Troponin I High Sens < 3 L Radiography Diagnostic Testing: Clinical Impression(s) from Imaging Studies Chest X-Ray 12/28/21 17:45 IMPRESSION: No acute cardiopulmonary process. Electronically Signed: Jaylon Pfeiffer MD at 18:52 EDT , EKG Initial EKG: Comments: Sinus rhythm with a rate of 95. Normal [place] and QTc intervals. Nonspecific ST changes throughout otherwise normal EKG Interpreted by emergency Dr. Discharge Plan Triage Chief Complaint: Chest Pain ED Provider: Saturnino Catalan Dx/Rx/DC Orders Clinical Impression: Chest pain, Hypertension Instructions: Controlling High Blood Pressure, ED Chest Pain, Uncertain Cause Prescriptions: No Action Jardiance 25 mg PO/SL DAILY RF: 0 omeprazole 80 mg PO/SL BID RF: 0 losartan 50 mg Tablet 50 mg PO DAILY RF: 0 Soliqua 100/33 100 unit-33 mcg/mL Insulin Pen 24 unit SUBCUT DAILY RF: 0 aspirin 81 mg Capsule 81 mg PO DAILY RF: 0 Primary Care Provider: Care Physician,No Primary Referrals: Cosme Bridges MD [STAFF PHYSICIAN] - 3-5 Days Care Physician,No Primary [Primary Care Provider] - Disposition Disposition: Home, Self Care
--- NOTE | 2021-12-28 17:45 | RAD_ITS ---
STUDY: X-RAY CHEST REASON FOR EXAM: Male, 46 years old. chest pain TECHNIQUE: 1 view COMPARISON: 12/03/2021 FINDINGS: Cardiomediastinal silhouette is unremarkable. Costophrenic angles are sharp. Lungs are clear. The trachea is midline. There is no pneumothorax. The bones are grossly intact. RAD/Chest 1 View (Portable) IMPRESSION: No acute cardiopulmonary process. Electronically Signed: Jaylon Pfeiffer MD at 18:52 EDT ,
[2021-12-28 17:53] LABS: Absolute Lymphocyte Count 1.19 X10^3/uL (0.83-4.51); Absolute Neutrophil Count 9.3 X10^3/uL (2.0-7.7); Basophil# 0.01 X10^3/uL; Basophil% 0.1 % (0-1); Eosinophil# 0.08 X10^3/uL; Eosinophils% 0.7 % (0-5); Hematocrit 45.4 % (40-54); Hemoglobin 14.7 g/dL (13.0-16.5); Lymphocyte # 1.19 X10^3/ul (0.83-4.51); Lymphocyte % 10.7 % (19-41); Mean Corp Hgb Conc 32.4 g/dL (32-36); Mean Corpuscular Hgb 27.4 pg (27.0-32.0); Mean Corpuscular Volume 84.7 fL (80-94); Monocyte# 0.52 X10^3/uL; Monocyte% 4.7 % (0-10); NRBC Flagged by Analyzer 0 % (0-5); Neutrophil # 9.26 X10^3/uL (2.7-7.7); Neutrophil % 83.4 % (47-70); Platelet Count 186 K/mm3 (150-450); RBC Distribution Width CV 13.5 % (11.6-14.6); RBC Distribution Width SD 41.7 fl (35.1-43.9); Red Blood Count 5.36 M/mm3 (4.6-6.2); White Blood Count 11.1 K/mm3 (4.4-11.0)
[2021-12-28 18:16] LABS: D-Dimer Quantitative (DVT/PE) 0.47 FEU/ug/m (0.27-0.49)
[2021-12-28 18:22] LABS: Anion Gap 7 (5-15); BUN 15 mg/dL (7-18); BUN/Creat Ratio 18.8 RATIO (10-20); Calcium,Total 9.1 mg/dL (8.5-10.1); Chloride 105 mmol/L (98-107); EST Glomerular Filtration Rate 111 mL/min (>60); Est Glom Filt Rate - Afr Amer 135 mL/min (>60); Glucose 337 mg/dL (74-106); Potassium 4.1 mmol/L (3.5-5.1); Sodium Level 138 mmol/L (136-145); Troponin-I HS (w/2H Reflex) 4 pg/mL (3.0-78.0)
[2021-12-28 19:43] VITALS: BP 122/74; PULSE 90; RESP 26; O2SAT 98
[2021-12-28 19:48] LABS: Reflex Troponin-HS? (from REC) Y
[2021-12-28 20:06] LABS: Troponin-I HS < 3 pg/mL (3.0-78.0)
== END 2021-12-28 20:50 | disposition home or self-care (01) ==
PROVIDERS: Emergency Provider Emergency Medicine; Visit Provider Emergency Medicine
DX: R07.9 Chest pain, unspecified (principal); J44.9 Chronic obstructive pulmonary disease, unspecified; E11.9 Type 2 diabetes mellitus without complications; Z79.4 Long term (current) use of insulin; Z87.891 Personal history of nicotine dependence; I10 Essential (primary) hypertension; Z79.899 Other long term (current) drug therapy; Z79.82 Long term (current) use of aspirin
CPT/HCPCS: 71045; 80048; 84484; 85025; 85379; 93005; 99285; A4216

== ENCOUNTER → 2022-03-26 | Outpatient (CLI) | payer MEDICAID, SELFPAY ==
[2022-03-26 12:54] LABS: Erythrocyte Sedimentation Rate 44 mm/hr (0-20)
== END | disposition home or self-care (01) ==
LOC: LABSPEC 12:25
PROVIDERS: Referring Provider Nurse Practitioner Acute Care; Visit Provider Nurse Practitioner Acute Care
DX: L03.116 Cellulitis of left lower limb (principal)
CPT/HCPCS: 85652

== ENCOUNTER 2022-12-18 20:07 | Emergency (ER) | payer MEDICAID, SELFPAY ==
[2022-12-18 20:08] VITALS: BP 165/99; PULSE 87; RESP 16; TEMP 36.8; O2SAT 97
[2022-12-18 21:01] VITALS: BMI 62.4
--- NOTE | 2022-12-18 21:19 | CT_ITS ---
EXAM: CT NECK WITH INTRAVENOUS CONTRAST CLINICAL INDICATION: neck pain, dysphagia, recent thyroid biopsy TECHNIQUE: Helically acquired images were obtained of the neck with intravenous contrast. This CT exam was performed using one or more of the following dose reduction techniques: automated exposure control, adjustment of the mA and/or kV according to patient size, and/or use of iterative reconstruction technique. CONTRAST: IV 75mL Isovue-370 RADIATION DOSE: CTDIvol = 21.13 mGy, DLP = 570.04 mGy-cm COMPARISON: No relevant prior studies available. FINDINGS: NASOPHARYNX: Unremarkable. SUPRAHYOID NECK: Unremarkable. Oropharynx, oral cavity, parapharyngeal space and retropharyngeal space are unremarkable. INFRAHYOID NECK: Unremarkable. The larynx, hypopharynx and supraglottis are unremarkable. SUBMANDIBULAR/PAROTID GLANDS: Unremarkable. Glands are normal in size. THYROID: Slightly heterogeneous thyroid with small hypodense 1 cm structure in the left lobe, not clearly simple cyst. No neck hematoma. SINUSES: Small mucous retention cyst in the left maxillary sinus. Otherwise unremarkable completely included paranasal sinuses. Well-aerated middle ears and mastoids sinuses. BONES/JOINTS: Straightening of the usual lordotic curvature of the spine, probably positional. No acute fracture. SOFT TISSUES: Unremarkable. VASCULATURE: No acute findings. LYMPH NODES: Multiple minimally prominent scattered lymph nodes in the neck, no necrotic lymph nodes. LUNG APICES: Unremarkable as visualized. CT/Soft Tissue Neck WITH Contrast IMPRESSION: Artifacts. Mildly heterogeneous thyroid with at least 1 cm slightly hypodense nodular focus. No hematoma. Shotty cervical nodes. No retropharyngeal fluid. Electronically Signed: Fransisca Zamora MD at 22:23 EDT ,
[2022-12-18 21:46] LABS: Absolute Lymphocyte Count 2.23 X10^3/uL (0.83-4.51); Absolute Neutrophil Count 3.9 X10^3/uL (2.0-7.7); Basophil# 0.02 X10^3/uL; Basophil% 0.3 % (0-1); Eosinophils% 4.4 % (0-5); Hematocrit 41.8 % (40-54); Hemoglobin 13.6 g/dL (13.0-16.5); Lymphocyte # 2.23 X10^3/ul (0.83-4.51); Lymphocyte % 32.9 % (19-41); Mean Corp Hgb Conc 32.5 g/dL (32-36); Mean Corpuscular Hgb 27.4 pg (27.0-32.0); Mean Corpuscular Volume 84.1 fL (80-94); Mean Platelet Vol. 9.6 fl (6.2-12.0); Monocyte# 0.27 X10^3/uL; NRBC Flagged by Analyzer 0 % (0-5); Neutrophil # 3.89 X10^3/uL (2.7-7.7); Neutrophil % 57.5 % (47-70); Platelet Count 203 K/mm3 (150-450); RBC Distribution Width CV 13.5 % (11.6-14.6); RBC Distribution Width SD 41.5 fl (35.1-43.9); Red Blood Count 4.97 M/mm3 (4.6-6.2); White Blood Count 6.8 K/mm3 (4.4-11.0)
[2022-12-18 21:53] LABS: Anion Gap 8 (5-15); BUN 17 mg/dL (7-18); BUN/Creat Ratio 21.3 RATIO (10-20); Calcium,Total 8.8 mg/dL (8.5-10.1); Chloride 105 mmol/L (98-107); EST Glomerular Filtration Rate 111 mL/min (>60); Est Glom Filt Rate - Afr Amer 134 mL/min (>60); Estimated Creatinine Clearance 105.23 ml/min; Glucose 258 mg/dL (74-106); Potassium 4.2 mmol/L (3.5-5.1); Sodium Level 138 mmol/L (136-145)
--- NOTE | 2022-12-18 22:48 | EDS_ITS ---
HPI History of Present Illness Chief Complaint: Wound Check Informant: patient Narrative Narrative: Patient had biopsies of his thyroid in 2 different areas about a week ago, he states in the last couple days he has felt like there is pain and swelling on the inside, is worse with swallowing and he feels like he is having some difficulty swallowing. No trouble breathing. No fevers or chills. He is not vomiting or spitting anything up. No other symptoms, he states he just wants to make sure there is no infection from the biopsies. He is a diabetic. [facility] Medical History COPD (chronic obstructive pulmonary disease) Diabetes Hypertension Home Medications Jardiance 25 mg PO/SL DAILY 06/29/21 [History Last Taken Unknown] omeprazole 80 mg PO/SL BID 06/29/21 [History Last Taken Unknown] aspirin 81 mg capsule 81 mg PO DAILY 12/28/21 [History Last Taken Unknown] insulin glargine 100 unit-lixisenatide 33 mcg/mL subcutaneous pen (Soliqua 100/33) 24 unit subcut DAILY 12/28/21 [History Last Taken Unknown] losartan 50 mg tablet 50 mg PO DAILY 12/28/21 [History Last Taken Unknown] Allergy/AdvReac Type Severity Reaction Status Date / Time azithromycin [From Zithromax] Allergy Swelling Verified 12/18/22 20:10 bee venom protein (honey bee) Allergy Hives Verified 12/18/22 20:10 codeine Allergy Swelling Verified 12/18/22 20:10 Latex, Natural Rubber Allergy Anaphylaxis Verified 12/18/22 20:10 ondansetron [From Zofran] Allergy Vomiting Verified 12/18/22 20:10 Surgical History History of carpal tunnel repair History of cholecystectomy History of meniscectomy of right knee Social History Smoking Status: Former smoker ROS ROS ED Constitutional Constitutional ED: Denies chills or fever(s) ENT ENT ED: Reports as per HPI, neck pain and odynophagia; Denies sore throat Respiratory/Chest Respiratory/Chest: Denies cough or dyspnea Gastrointestinal Gastrointestinal: Denies nausea or vomiting EXAM Physical Exam Const Vital Signs: 12/18/22 20:08 Temperature 98.2 F Temperature Source Temporal Pulse Rate 87 Respiratory Rate 16 Blood Pressure 165/99 H Blood Pressure Mean 121 Pulse Ox 97 Oxygen Delivery Method Room Air Positive well nourished, well developed and obese General Appearance ED: well developed and NAD Nutritional Appearance: obese HEENT Reports moist mucous membranes HEENT Narrative: Normal oropharynx and posterior pharynx, no sublingual swelling or tenderness, no tongue elevation, no stridor. Normal palpation of the neck no subcutaneous emphysema, abscess, erythema, or tenderness. It is on the inside. Eyes PERRL and EOMs intact bilaterally Neck no lymphadenopathy, supple and no JVD General: Negative for tenderness Resp normal respiratory effort Effort and Inspection: able to speak in complete sentences MDM MDM MDM Narrative Medical decision making narrative: Obtain labs and CT soft tissue of the neck in order to rule out infection/collection. I reviewed the images and the report and I agree with it, basically negative for than acute. If he was not a diabetic I would consider a prescription or dose of dexamethasone. However, I fear this may do more harm than good, so I recommend against it and he is in agreement. Close a patient follow-up advised. Cold beverages advised as well. Lab Data Attestation: I reviewed the patient's lab results. Labs: Laboratory Results - last 24 hr 12/18/22 12/18/22 21:30 21:30 WBC 6.8 RBC 4.97 Hgb 13.6 Hct 41.8 MCV 84.1 MCH 27.4 MCHC 32.5 RDW Std Deviation 41.5 RDW Coeff of Antonia 13.5 Plt Count 203 MPV 9.6 Immature Gran % (Auto) 0.900 Neut % (Auto) 57.5 Lymph % (Auto) 32.9 [place] % (Auto) 4.0 Eos % (Auto) 4.4 Baso % (Auto) 0.3 Absolute Neuts (auto) 3.9 Absolute Lymphs (auto) 2.23 Nucleated RBC % 0 Sodium 138 Potassium 4.2 Chloride 105 Carbon Dioxide 25.0 Anion Gap 8 BUN 17 Creatinine 0.80 Estim Creat Clear Calc 105.23 Est GFR (MDRD) Af Amer 134 Est GFR (MDRD) Non-Af 111 BUN/Creatinine Ratio 21.3 H Glucose 258 H Calcium 8.8 Radiography Diagnostic Testing: Clinical Impression(s) from Imaging Studies Soft Tissue Neck CT 12/18/22 21:19 IMPRESSION: Artifacts. Mildly heterogeneous thyroid with at least 1 cm slightly hypodense nodular focus. No hematoma. Shotty cervical nodes. No retropharyngeal fluid. Electronically Signed: Fransisca Zamora MD at 22:23 EDT Reading Location ID and State: [facility] / [place] Tel , Service support , Discharge Plan Triage Chief Complaint: Wound Check ED Provider: Justin Diamond Dx/Rx/DC Orders Clinical Impression: Acute neck pain, Odynophagia Instructions: ED Dysphagia (Adult) Prescriptions: No Action Jardiance 25 mg PO/SL DAILY omeprazole 80 mg PO/SL BID losartan 50 mg Tablet 50 mg PO DAILY Soliqua 100/33 100 unit-33 mcg/mL Insulin Pen 24 unit SUBCUT DAILY aspirin 81 mg Capsule 81 mg PO DAILY Primary Care Provider: Linwood Jules Referrals: Linwood Jules MD [Primary Care Provider] - 3-5 Days if not improving Activity Restrictions/Additional Instructions: Try sticking with cold beverages instead of hot ones for now. Disposition Disposition: Home, Self Care
== END 2022-12-18 23:11 | disposition home or self-care (01) ==
PROVIDERS: Emergency Provider Emergency Medicine; PCP Internal Medicine; Visit Provider Emergency Medicine
DX: R13.19 Other dysphagia (principal); J44.9 Chronic obstructive pulmonary disease, unspecified; E11.9 Type 2 diabetes mellitus without complications; Z79.4 Long term (current) use of insulin; I10 Essential (primary) hypertension; Z87.891 Personal history of nicotine dependence; M54.2 Cervicalgia; Z79.899 Other long term (current) drug therapy; Z79.82 Long term (current) use of aspirin; Z90.49 Acquired absence of other specified parts of digestive tract
CPT/HCPCS: 70491; 80048; 85025; 99283; Q9967

== ENCOUNTER 2023-01-18 19:16 | Emergency (ER) | payer MEDICAID, SELFPAY ==
[2023-01-18 19:17] VITALS: BP 183/109; PULSE 92; RESP 17; TEMP 36.9; O2SAT 98
[2023-01-18 21:51] VITALS: BP 143/94; PULSE 89; O2SAT 95
[2023-01-18 21:53] LABS: Bacteria 0 SEEN /hpf (None Seen); Mucous, Urine 0 SEEN /hpf (<or=2+); Red Blood Cells-Urine 0 SEEN /hpf (0-5); White Blood Cells 0 SEEN /hpf (0-5)
[2023-01-18 21:57] LABS: Color, Urine Yellow (Yellow); Glucose, Dipstick Normal (Normal); Ketone-Dipstick Negative (Negative); Leukocyte Esterase-Dipstick Negative /ul (Negative); Nitrite-Dipstick Negative (Negative); Occult Blood-Urine Negative /ul (Negative); Protein-Dipstick 15 mg/dl (Negative); Urine Bilirubin Dipstick Negative (Negative); Urine Clarity Sl. Cloudy (Clear); Urine Urobilinogen Normal (Normal)
[2023-01-18 22:00] LABS: Absolute Lymphocyte Count 2.24 X10^3/uL (0.83-4.51); Absolute Neutrophil Count 4.9 X10^3/uL (2.0-7.7); Basophil# 0.02 X10^3/uL; Basophil% 0.3 % (0-1); Eosinophil# 0.16 X10^3/uL; Eosinophils% 2.1 % (0-5); Hematocrit 47.4 % (40-54); Hemoglobin 15.4 g/dL (13.0-16.5); Lymphocyte # 2.24 X10^3/ul (0.83-4.51); Mean Corp Hgb Conc 32.5 g/dL (32-36); Mean Corpuscular Hgb 27.4 pg (27.0-32.0); Mean Corpuscular Volume 84.2 fL (80-94); Monocyte# 0.37 X10^3/uL; Monocyte% 4.8 % (0-10); NRBC Flagged by Analyzer 0 % (0-5); Neutrophil % 63.3 % (47-70); Platelet Count 219 K/mm3 (150-450); RBC Distribution Width CV 13.7 % (11.6-14.6); RBC Distribution Width SD 42.2 fl (35.1-43.9); Red Blood Count 5.63 M/mm3 (4.6-6.2); White Blood Count 7.7 K/mm3 (4.4-11.0)
[2023-01-18 22:09] LABS: Amorphous Sediment 1+; Squamous Epithelial Cells - UA 0-5 SEEN /hpf (0-5)
[2023-01-18 22:14] LABS: ALB/GLOB Ratio 0.8 RATIO (0.9-2.4); AST(SGOT) 15 U/L (15-37); Alanine Aminotransfer ALT/SGPT 34 U/L (16-61); Albumin, Serum 3.3 g/dL (3.2-5.0); Alkaline Phosphatase 90 U/L (45-117); Anion Gap 7 (5-15); BUN 15 mg/dL (7-18); BUN/Creat Ratio 16.3 RATIO (10-20); Calcium,Total 9.9 mg/dL (8.5-10.1); Chloride 106 mmol/L (98-107); Creatinine, Serum 0.92 mg/dL (0.70-1.30); EST Glomerular Filtration Rate 94 mL/min (>60); Est Glom Filt Rate - Afr Amer 114 mL/min (>60); Globulin 4.2 g/dL (2.2-4.2); Glucose 204 mg/dL (74-106); Lipase 24 U/L (13-75); Protein, Total 7.5 g/dL (6.4-8.2); Sodium Level 139 mmol/L (136-145)
[2023-01-18] MEDS: 0.9% Normal Saline 1,000 ML 999 ML IV (22:28)
[2023-01-18] MEDS: Metoclopramide 10 MG/2 ML Vial IV (22:28)
--- NOTE | 2023-01-18 23:35 | EDS_ITS ---
HPI History of Present Illness Chief Complaint: Nausea/Vomiting Narrative Narrative: 47-year-old male presenting with nausea for the last few days. Today it turned into vomiting. He has not had a fever at home but does have chills and body aches. Nobody else is sick in the home. No chest pain or shortness of breath. No abdominal pain. No diarrhea. PFSH PFS Medical History COPD (chronic obstructive pulmonary disease) Diabetes Hypertension Home Medications Jardiance 25 mg PO/SL DAILY 06/29/21 [History Last Taken Unknown] omeprazole 80 mg PO/SL BID 06/29/21 [History Last Taken Unknown] aspirin 81 mg capsule 81 mg PO DAILY 12/28/21 [History Last Taken Unknown] insulin glargine 100 unit-lixisenatide 33 mcg/mL subcutaneous pen (Soliqua 100/33) 24 unit subcut DAILY 12/28/21 [History Last Taken Unknown] losartan 50 mg tablet 50 mg PO DAILY 12/28/21 [History Last Taken Unknown] Allergy/AdvReac Type Severity Reaction Status Date / Time azithromycin [From Zithromax] Allergy Swelling Verified 01/18/23 19:19 bee venom protein (honey bee) Allergy Hives Verified 01/18/23 19:19 codeine Allergy Swelling Verified 01/18/23 19:19 Latex, Natural Rubber Allergy Anaphylaxis Verified 01/18/23 19:19 ondansetron [From Zofran] Allergy Vomiting Verified 01/18/23 19:19 Surgical History History of carpal tunnel repair History of cholecystectomy History of meniscectomy of right knee Social History Smoking Status: Former smoker ROS ROS ED Constitutional Constitutional ED: Reports chills; Denies sweats Eyes Eyes: Denies blurry vision or change in vision ENT ENT ED: Denies ear pain or sore throat Cardiovascular Cardiovascular: Denies chest pain, palpitations or racing heartbeat Respiratory/Chest Respiratory/Chest: Denies cough, dyspnea or sputum Gastrointestinal Gastrointestinal: Reports nausea and vomiting; Denies abdominal pain, constipation or diarrhea Genitourinary Genitourinary ED: Denies dysuria, hematuria or urinary frequency Musculoskeletal Musculoskeletal: Reports myalgias; Denies arthralgias or neck pain Integumentary Denies abscess, Abrasions or rash Neurologic Neurologic: Denies headache(s), paresthesias or weakness Psychiatric Psychiatric: Denies anxiety, depression, suicidal ideation or suicidal thoughts Endocrine Endocrinology: Denies polydipsia or polyuria EXAM Physical Exam Const Vital Signs: 01/18/23 19:17 01/18/23 21:51 Temperature 98.4 F Temperature Source Temporal Pulse Rate 92 89 Respiratory Rate 17 Blood Pressure 183/109 H 143/94 H Blood Pressure Mean 133 110 Pulse Ox 98 95 Oxygen Delivery Method Room Air Room Air Positive well nourished and obese General Appearance ED: NAD and pallor Nutritional Appearance: obese HEENT Reports moist mucous membranes Eyes PERRL and EOMs intact bilaterally Resp normal respiratory effort and clear to auscultation bilaterally Auscultation: Negative for rales, rhonchi or wheezes Cardio regular rate and regular rhythm GI normal to inspection, nondistended, normoactive bowel sounds Extremity normal to inspection Neuro oriented x3 and CN's II-XII intact bilaterally Motor Exam: strength 5/5 throughout Psych mental status grossly normal Skin no rashes or lesions noted General Skin Exam: jaundice and pallor MDM MDM MDM Narrative Medical decision making narrative: Presenting with nausea, vomiting. He is not having diarrhea. No chest pain or abdominal pain. He is not short of breath. Most likely this is something viral. CBC was obtained to assess white blood cell count, hemoglobin, platelets, differential. CMP to assess liver function, renal function, electrolytes. Lipase to assess pancreatitis. Urinalysis to assess for UTI. Patient given IV fluids, Reglan. On reevaluation at 1135 he states he feels much better. I will give him prescription for Reglan for home since he is allergic to Zofran. He is counseled to drink only fluids. Return precautions discussed. Impression: 1. Nausea/vomiting Lab Data Attestation: I reviewed the patient's lab results. Labs: Laboratory Results - last 24 hr 01/18/23 01/18/23 01/18/23 20:04 20:04 21:38 WBC 7.7 RBC 5.63 Hgb 15.4 Hct 47.4 MCV 84.2 MCH 27.4 MCHC 32.5 RDW Std Deviation 42.2 RDW Coeff of Antonia 13.7 Plt Count 219 MPV 10.0 Immature Gran % (Auto) 0.500 Neut % (Auto) 63.3 Lymph % (Auto) 29.0 [place] % (Auto) 4.8 Eos % (Auto) 2.1 Baso % (Auto) 0.3 Absolute Neuts (auto) 4.9 Absolute Lymphs (auto) 2.24 Nucleated RBC % 0 Sodium 139 Potassium 4.0 Chloride 106 Carbon Dioxide 26.0 Anion Gap 7 BUN 15 Creatinine 0.92 Estim Creat Clear Calc 247.20 Est GFR (MDRD) Af Amer 114 Est GFR (MDRD) Non-Af 94 BUN/Creatinine Ratio 16.3 Glucose 204 H Calcium 9.9 Total Bilirubin 0.60 AST 15 ALT 34 Alkaline Phosphatase 90 Total Protein 7.5 Albumin 3.3 Globulin 4.2 Albumin/Globulin Ratio 0.8 L Lipase 24 Urine Color Yellow Urine Clarity Sl. Cloudy Urine pH 7.0 Ur Specific [place] 1.010 Urine Protein 15 H Urine Glucose (UA) Normal Urine Ketones Negative Urine Occult Blood Negative Urine Nitrite Negative Urine Bilirubin Negative Urine Urobilinogen Normal Ur Leukocyte Esterase Negative Urine RBC 0 SEEN Urine WBC 0 SEEN Ur Squamous Epith Cells 0-5 SEEN Amorphous Sediment 1+ Urine Bacteria 0 SEEN Urine Mucus 0 SEEN Discharge Plan Triage Chief Complaint: Nausea/Vomiting ED Provider: Bakari Silveira Dx/Rx/DC Orders Prescriptions: No Action Jardiance 25 mg PO/SL DAILY omeprazole 80 mg PO/SL BID losartan 50 mg Tablet 50 mg PO DAILY Soliqua 100/33 100 unit-33 mcg/mL Insulin Pen 24 unit SUBCUT DAILY aspirin 81 mg Capsule 81 mg PO DAILY Primary Care Provider: Linwood Jules Referrals: Linwood Jules MD [Primary Care Provider] -
[2023-01-19 00:27] VITALS: BP 148/97
== END 2023-01-19 00:32 | disposition home or self-care (01) ==
PROVIDERS: Emergency Provider Student in an Organized Health Care Education/Training Program; PCP Internal Medicine; Visit Provider Student in an Organized Health Care Education/Training Program
DX: R11.2 Nausea with vomiting, unspecified (principal); J44.9 Chronic obstructive pulmonary disease, unspecified; E11.9 Type 2 diabetes mellitus without complications; Z79.4 Long term (current) use of insulin; I10 Essential (primary) hypertension; Z87.891 Personal history of nicotine dependence; Z79.899 Other long term (current) drug therapy; Z79.82 Long term (current) use of aspirin; Z90.49 Acquired absence of other specified parts of digestive tract
CPT/HCPCS: 80053; 81001; 83690; 85025; 96361; 96374; 99282; J7030; A4216

== ENCOUNTER 2023-01-20 18:09 | Emergency (ER) | payer MEDICAID, SELFPAY ==
[2023-01-20 18:10] VITALS: BP 173/90; PULSE 84; RESP 16; TEMP 36; O2SAT 98; BMI 65.2
[2023-01-20] MEDS: 0.9% Normal Saline 1,000 ML 1000 ML IV (19:06)
[2023-01-20] MEDS: Metoclopramide 10 MG/2 ML Vial IV (19:21)
[2023-01-20 19:34] LABS: Anion Gap 6 (5-15); BUN 14 mg/dL (7-18); BUN/Creat Ratio 15.7 RATIO (10-20); Calcium,Total 9.5 mg/dL (8.5-10.1); Chloride 103 mmol/L (98-107); Creatinine, Serum 0.89 mg/dL (0.70-1.30); EST Glomerular Filtration Rate 98 mL/min (>60); Est Glom Filt Rate - Afr Amer 119 mL/min (>60); Estimated Creatinine Clearance 87.77 ml/min; Glucose 227 mg/dL (74-106); Potassium 3.5 mmol/L (3.5-5.1); Sodium Level 138 mmol/L (136-145)
--- NOTE | 2023-01-20 20:45 | EX.ED.DYSGE1 ---
HPI History of Present Illness Chief Complaint: Fever Detail of Chief Complaint: Viral-like symptoms with fever Informant: patient and spouse/S.O. Onset/Context/Timing Onset: Days Context: Sudden Onset Timing: Intermittent and Waxes and wanes Quality: Document temperature to 101.8, nausea, vomiting diarrhea Location: GI Current Severity: Mild Maximum Severity: Moderate Worsened by: Nothing Relieved by: Nothing Associated Symptoms Associated Symptoms: Concern for dehydration Narrative Narrative: Patient is a 47-year-old type II diabetic on insulin who has not taken his insulin since he has not eaten in the last 2 days. He has not checked his blood sugar recently either. He was seen on January 18. He was discharged with Reglan. He was not instructed take Imodium for his diarrhea. He is reporting 6-7 loose stools per day and numerous episodes of emesis. He denies history of gastroparesis due to diabetes. Patient denies headache, rhinorrhea, congestion, postnasal drainage sore throat. Patient [place] cough or shortness of breath. He does endorse vague abdominal discomfort. He does endorse dark urine and decreased urine output. He does endorse orthostatics times. He denies rash. He denies ill contacts. He has not been on antibiotics past month. There is no prior history of Pseudomonas under colitis. Prior similar symptoms: Yes Recent Illness/Hospitalization: Yes [facility] Medical History COPD (chronic obstructive pulmonary disease) Diabetes Hypertension Home Medications Jardiance 25 mg PO/SL DAILY 06/29/21 [History Last Taken Unknown] omeprazole 80 mg PO/SL BID 06/29/21 [History Last Taken Unknown] aspirin 81 mg capsule 81 mg PO DAILY 12/28/21 [History Last Taken Unknown] insulin glargine 100 unit-lixisenatide 33 mcg/mL subcutaneous pen (Soliqua 100/33) 24 unit subcut DAILY 12/28/21 [History Last Taken Unknown] losartan 50 mg tablet 50 mg PO DAILY 12/28/21 [History Last Taken Unknown] metoclopramide HCl 10 mg tablet (Reglan) 10 mg PO Q6H PRN nausea and vomiting #20 tabs 01/18/23 [Rx Last Taken Unknown] Allergy/AdvReac Type Severity Reaction Status Date / Time azithromycin [From Zithromax] Allergy Swelling Verified 01/18/23 19:19 bee venom protein (honey bee) Allergy Hives Verified 01/18/23 19:19 codeine Allergy Swelling Verified 01/18/23 19:19 Latex, Natural Rubber Allergy Anaphylaxis Verified 01/18/23 19:19 ondansetron [From Zofran] Allergy Vomiting Verified 01/18/23 19:19 Surgical History History of carpal tunnel repair History of cholecystectomy History of meniscectomy of right knee Social History (Updated 01/20/23 @ 20:[address] Jose Alejandro Mae MD) household members: spouse Smoking Status: Former smoker substance use type: does not use ROS ROS ED Constitutional Constitutional ED: Reports fever(s); Denies chills, subjective, sweats or weight loss Eyes Eyes: Denies blurry vision, change in vision or diplopia ENT ENT ED: Denies ear pain, rhinorrhea or sore throat Cardiovascular Cardiovascular: Denies chest pain, orthopnea, palpitations, paroxysmal nocturnal dyspnea or racing heartbeat Respiratory/Chest Respiratory/Chest: Denies cough, dyspnea, dyspnea on exertion, orthopnea or paroxysmal nocturnal dyspnea Gastrointestinal Gastrointestinal: Reports abdominal pain, diarrhea, nausea and vomiting; Denies constipation or melena Genitourinary Genitourinary ED: Denies dysuria, hematuria or urinary frequency Musculoskeletal Musculoskeletal: Denies arthralgias, back pain, myalgias or neck pain Integumentary Denies abscess, Abrasions or rash Neurologic Neurologic: Reports weakness; Denies headache(s) or paresthesias Endocrine Endocrinology: Denies cold intolerance or heat intolerance Hematologic/Lymphatic Hematologic/Lymphatic: Reports systems reviewed and no addt'l complaints, except as documented EXAM Physical Exam Const Vital Signs: 01/20/23 18:10 01/20/23 18:44 Temperature 96.8 F L Temperature Source Temporal Pulse Rate 84 Respiratory Rate 16 Respiratory Effort Normal Non-Labored Respiratory Pattern Normal Blood Pressure 173/90 H Blood Pressure Mean 117 Pulse Ox 98 Oxygen Delivery Method Room Air Positive well nourished, well developed and obese Constitutional Narrative: Patient does not appear well. General Appearance ED: well developed; Negative for cyanotic, diaphoretic or NAD Nutritional Appearance: obese HEENT Reports dry mucous membranes HEENT Narrative: Head is atraumatic normocephalic. Ears normal. Nares patent. Posterior pharynx. Mouth ED: Yes dry mucous membranes Mouth: dry mucous membranes Eyes PERRL and EOMs intact bilaterally General Eye ED: Negative for pale conjunctiva or scleral icterus Neck no lymphadenopathy, supple and no JVD Chest Wall inspection of chest normal and palpation of chest normal Resp normal respiratory effort and clear to auscultation bilaterally Cardio regular rate, regular rhythm, S1 normal heart sound, S2 normal heart sound and no murmurs GI normal to inspection, nondistended, normoactive bowel sounds, non-distended and no masses; Negative for non-tender or hepatosplenomegaly GI Narrative: Vague diffuse tenderness without guarding or peritoneal findings. Palpation: soft Back/Spine no CVA tenderness Extremity normal to inspection General Extremety ED: Negative for edema or tenderness General Extremity: Negative for edema Neuro oriented x3, CN's II-XII intact bilaterally and no sensory deficits noted Sensorium / Orientation: alert Psych mental status grossly normal Skin no rashes or lesions noted, no wounds and skin turgor normal General Skin Exam: Negative for elasticity normal or jaundice MDM MDM MDM Narrative Medical decision making narrative: Records for prior visit were reviewed. Patient had an extensive work-up and laboratory studies were negative with exception of elevated blood sugar. He has normal CO2 anion gap. There is no glucose urea. Patient states he was sent in by his doctor because he is dehydrated Patient received 1 L of normal saline and Reglan for his nausea and vomiting. He did not receive Imodium since his last loose stool was 1 PM. History & Record Review Discussion w/independent historian: Patient and Family Additional record(s) reviewed:: Prior ED visit and Prior labs Lab Data Attestation: I reviewed the patient's lab results. Lab results narrative: Patient metabolic panel reveals elevated glucose of 227 with normal CO2 anion gap. Renal function is well. Labs: Laboratory Results - last 24 hr 01/20/23 19:05 Sodium 138 Potassium 3.5 Chloride 103 Carbon Dioxide 29.0 Anion Gap 6 BUN 14 Creatinine 0.89 Estim Creat Clear Calc 87.77 Est GFR (MDRD) Af Amer 119 Est GFR (MDRD) Non-Af 98 BUN/Creatinine Ratio 15.7 Glucose 227 H Calcium 9.5 Treatment and Re-Evaluation :: Patient was reassessed at 2102. He feels markedly better. He had no vomiting or diarrhea in his department. He would like to go home. Patient was informed of his laboratory results. Discharge Plan Triage Chief Complaint: Fever ED Provider: Jose Alejandro Mae Dx/Rx/DC Orders Clinical Impression: Nausea vomiting and diarrhea, Controlled type 2 diabetes mellitus with hyperglycemia, Dehydration, mild Instructions: ED Diet Vomiting Diarrhea Prescriptions: No Action Jardiance 25 mg PO/SL DAILY omeprazole 80 mg PO/SL BID losartan 50 mg Tablet 50 mg PO DAILY Soliqua 100/33 100 unit-33 mcg/mL Insulin Pen 24 unit SUBCUT DAILY aspirin 81 mg Capsule 81 mg PO DAILY metoclopramide HCl [Reglan] 10 mg tablet 10 mg PO Q6H PRN (Reason: nausea and vomiting) Qty: 20 0RF Primary Care Provider: Linwood Jules Referrals: Linwood Jules MD [Primary Care Provider] - 1-2 Days if not improving Disposition Disposition: Home, Self Care
[2023-01-20 21:36] VITALS: BP 130/93; PULSE 74; RESP 16; O2SAT 97
== END 2023-01-20 21:50 | disposition home or self-care (01) ==
PROVIDERS: Emergency Provider Emergency Medicine; PCP Internal Medicine; Visit Provider Emergency Medicine
DX: R50.9 Fever, unspecified (principal); J44.9 Chronic obstructive pulmonary disease, unspecified; E11.65 Type 2 diabetes mellitus with hyperglycemia; Z79.4 Long term (current) use of insulin; E86.0 Dehydration; Z87.891 Personal history of nicotine dependence; R19.7 Diarrhea, unspecified; I10 Essential (primary) hypertension; R11.2 Nausea with vomiting, unspecified; Z79.82 Long term (current) use of aspirin; Z79.899 Other long term (current) drug therapy; Z90.49 Acquired absence of other specified parts of digestive tract
CPT/HCPCS: 80048; 96361; 96374; 99282; J7030

== ENCOUNTER 2023-04-09 20:55 | Emergency (ER) | payer SELFPAY ==
[2023-04-09 20:56] VITALS: BP 163/95; PULSE 100; RESP 20; TEMP 36.8; O2SAT 93; BMI 65.2
--- NOTE | 2023-04-09 21:01 | EKG12_ITS ---
Test Reason : CP Blood Pressure : / mmHG Vent. Rate : 104 BPM Atrial Rate : 104 BPM P-R Int : 148 ms QRS Dur : 092 ms QT Int : 328 ms P-R-T Axes : 064 070 051 degrees QTc Int : 431 ms Sinus tachycardia Nonspecific T wave abnormality Abnormal ECG When compared with ECG of 28-DEC-2021 17:31, No significant change was found Confirmed by JACKIE COVINGTON, JONATHAN ([id number]), restaurant expeditor ADARSH CLEMENT ([id number]) on 04/14/2023 10:21:27 AM Referred By: Confirmed By:JONATHAN MEJIA MD
[2023-04-09 21:14] LABS: Absolute Lymphocyte Count 2.73 X10^3/uL (0.83-4.51); Absolute Neutrophil Count 4.5 X10^3/uL (2.0-7.7); Basophil# 0.03 X10^3/uL; Basophil% 0.4 % (0-1); Eosinophils% 2.6 % (0-5); Hematocrit 48.6 % (40-54); Hemoglobin 15.7 g/dL (13.0-16.5); Lymphocyte # 2.73 X10^3/ul (0.83-4.51); Mean Corp Hgb Conc 32.3 g/dL (32-36); Mean Corpuscular Hgb 26.9 pg (27.0-32.0); Mean Corpuscular Volume 83.4 fL (80-94); Mean Platelet Vol. 10.1 fl (6.2-12.0); Monocyte# 0.36 X10^3/uL; Monocyte% 4.6 % (0-10); NRBC Flagged by Analyzer 0 % (0-5); Neutrophil # 4.46 X10^3/uL (2.7-7.7); Platelet Count 204 K/mm3 (150-450); RBC Distribution Width CV 13.6 % (11.6-14.6); RBC Distribution Width SD 41.3 fl (35.1-43.9); Red Blood Count 5.83 M/mm3 (4.6-6.2); White Blood Count 7.8 K/mm3 (4.4-11.0)
--- NOTE | 2023-04-09 21:15 | RAD_ITS ---
STUDY: X-RAY CHEST REASON FOR EXAM: Male, 47 years old. chest pain TECHNIQUE: Single AP portable view of the chest. COMPARISON: 12/28/2021 FINDINGS: The lungs are clear and expanded. There is no demonstrated pleural abnormality. Normal size heart. Normal mediastinum and julianne. Normal visualized pulmonary arteries. Normal visualized aortic arch and descending thoracic aorta. Normal visualized thoracic spine. Normal visualized ribs, clavicles, and shoulders. There is no demonstrated abnormality of the visualized soft tissue structures of the upper abdomen. RAD/Chest 1 View (Portable) IMPRESSION: Normal x-ray examination of the chest. Electronically Signed: Joce Osborn MD at 21:37 EDT ,
[2023-04-09 21:37] LABS: Anion Gap 8 (5-15); BUN 13 mg/dL (7-18); BUN/Creat Ratio 11.1 RATIO (10-20); Calcium,Total 9.1 mg/dL (8.5-10.1); Chloride 99 mmol/L (98-107); Creatinine, Serum 1.17 mg/dL (0.70-1.30); EST Glomerular Filtration Rate 71 mL/min (>60); Est Glom Filt Rate - Afr Amer 86 mL/min (>60); Estimated Creatinine Clearance 66.76 ml/min; Glucose 487 mg/dL (74-106); Sodium Level 135 mmol/L (136-145); Troponin-I HS 5 pg/mL (3.0-78.0); Troponin-I HS (w/2H Reflex) 5 pg/mL (3.0-78.0)
--- NOTE | 2023-04-09 22:19 | ED.VIS.CHEST ---
HPI History of Present Illness Chief Complaint: Chest Pain Informant: patient Onset/Context/Timing Onset: Hours (1-2) Activity at onset: gradual, onset and activity on onset ([place]alking [place] [employer]) Timing: Continuous Quality: Positive for - (Squeezing and sharp and stabbing without radiation) Location: Left Chest Current Severity: Mild Maximum Severity: Moderate Worsened By: Nothing; Not Worsened By Movement of Arm or Breathing Relieved By: NTG (x1, took on his own) Associated Symptoms: Negative for Nausea, Vomiting, Diaphoresis, Dyspnea, Cough, Fever, Lightheadedness or Palpitations Narrative Narrative: 47-year-old male left-sided chest discomfort nonradiating nonpleuritic, no other associated symptoms, concerned about this because he had a heart attack in the past, when he had this radiated up to his left shoulder and arm, not today. Took a nitro and made it better. States he is a diabetic, he takes a type II diabetic medication weekly, in addition to Lantus nightly which he has not had yet tonight, but he just ate. [facility] Medical History COPD (chronic obstructive pulmonary disease) Diabetes Hypertension Home Medications Jardiance 25 mg PO/SL DAILY 06/29/21 [History Last Taken Unknown] omeprazole 80 mg PO/SL DAILY REFLUX 06/29/21 [History Last Taken 01/20/23] aspirin 81 mg capsule 81 mg PO DAILY 12/28/21 [History Last Taken Unknown] insulin glargine 100 unit-lixisenatide 33 mcg/mL subcutaneous pen (Soliqua 100/33) 24 unit subcut DAILY 12/28/21 [History Last Taken Unknown] losartan 50 mg tablet 50 mg PO DAILY 12/28/21 [History Last Taken Unknown] metoclopramide HCl 10 mg tablet (Reglan) 10 mg PO Q6H PRN nausea and vomiting #20 tabs 01/18/23 [Rx Last Taken Unknown] albuterol sulfate 2.5 mg/3 mL (0.083 %) solution for nebulization mg 01/20/23 [History Last Taken Unknown] atorvastatin 10 mg tablet mg PO DAILY COLESTEROL 01/20/23 [History Last Taken 01/20/23] bupropion HCl 150 mg tablet,12 hr sustained-release mg PO DAILY 01/20/23 [History Last Taken 01/20/23] dulaglutide 0.75 mg/0.5 mL subcutaneous pen injector (Trulicity) mg subcut DAILY 01/20/23 [History Last Taken 01/20/23] epinephrine 0.3 mg/0.3 mL injection, auto-injector 01/20/23 [History Last Taken Unknown] meloxicam 15 mg tablet 15 mg PO DAILY 01/20/23 [History Last Taken 01/20/23] rosuvastatin 20 mg tablet 20 mg PO DAILY 01/20/23 [History Last Taken Unknown] Allergy/AdvReac Type Severity Reaction Status Date / Time azithromycin [From Zithromax] Allergy Swelling Verified 04/09/23 21:00 bee venom protein (honey bee) Allergy Hives Verified 04/09/23 21:00 codeine Allergy Swelling Verified 04/09/23 21:00 Latex, Natural Rubber Allergy Anaphylaxis Verified 04/09/23 21:00 ondansetron [From Zofran] Allergy Vomiting Verified 04/09/23 21:00 Surgical History History of carpal tunnel repair History of cholecystectomy History of meniscectomy of right knee Social History household members: spouse Smoking Status: Former smoker substance use type: does not use ROS ROS ED Constitutional Constitutional ED: Denies chills or fever(s) Eyes Eyes: Denies change in vision or diplopia ENT ENT ED: Denies rhinorrhea or sore throat Cardiovascular Cardiovascular: Reports as per HPI and chest pain; Denies palpitations Respiratory/Chest Respiratory/Chest: Denies cough or dyspnea Gastrointestinal Gastrointestinal: Denies abdominal pain, diarrhea, nausea or vomiting Genitourinary Genitourinary ED: Denies dysuria or hematuria Musculoskeletal Musculoskeletal: Denies back pain or neck pain Integumentary Denies abscess or rash Neurologic Neurologic: Denies headache(s), paresthesias or weakness Psychiatric Psychiatric: Denies anxiety or suicidal thoughts EXAM Physical Exam Const Vital Signs: 04/09/23 20:56 04/09/23 22:28 Temperature 98.2 F Temperature Source Temporal Pulse Rate 100 Respiratory Rate 20 H Respiratory Effort Normal Non-Labored Blood Pressure 163/95 H Blood Pressure Mean 117 Pulse Ox 93 Oxygen Delivery Method Room Air Positive well nourished, well developed and obese General Appearance ED: well developed and NAD Nutritional Appearance: obese HEENT Reports moist mucous membranes normocephalic and atraumatic Eyes PERRL and EOMs intact bilaterally Neck full ROM and supple Chest Wall inspection of chest normal and palpation of chest normal Resp normal respiratory effort and clear to auscultation bilaterally Cardio regular rate, regular rhythm and no murmurs Rate: Negative for tachycardic GI non-tender and non-distended Auscultation: normoactive bowel sounds Palpation: soft Back/Spine no CVA tenderness General Back: other FROM Extremity normal to inspection General Extremety ED: Negative for edema, pulses abnormal or tenderness General Extremity: Negative for edema or pulses abnormal Neuro oriented x3, CN's II-XII intact bilaterally and no sensory deficits noted Sensorium / Orientation: awake and alert Motor Exam: strength 5/5 throughout Psych mental status grossly normal Skin no rashes or lesions noted and no wounds Heart Score History: Moderately Suspicious ECG: Nonspecific Repolarization Age: </= 45 years Risk Factors: >/= 3 Risk Factors or History of CAD Troponin: </= Normal Limit Score: 4 MDM MDM MDM Narrative Medical decision making narrative: Patient is comfortable. Vital signs noted. Initial troponin is 5, the only abnormal lab is his glucose of 487 this was treated with Humalog while we observed him and waited for the second/2-hour repeat troponin. This returned lower than the initial 1, still in single digits. Patient reassured, we will recheck his sugar prior to discharge, close a patient follow-up advised if symptoms continue. History & Record Review Additional record(s) reviewed:: Other (Reviewed old outpatient notes, inpatient notes, labs. No documentation of prior abnormal cardiac testing/status.) Lab Data Attestation: I reviewed the patient's lab results. Labs: Laboratory Results - last 24 hr 04/09/23 04/09/23 21:08 23:15 WBC 7.8 RBC 5.83 Hgb 15.7 Hct 48.6 MCV 83.4 MCH 26.9 L MCHC 32.3 RDW Std Deviation 41.3 RDW Coeff of Antonia 13.6 Plt Count 204 MPV 10.1 Immature Gran % (Auto) 0.400 Neut % (Auto) 57.0 Lymph % (Auto) 35.0 [place] % (Auto) 4.6 Eos % (Auto) 2.6 Baso % (Auto) 0.4 Absolute Neuts (auto) 4.5 Absolute Lymphs (auto) 2.73 Nucleated RBC % 0 Sodium 135 L Potassium 4.0 Chloride 99 Carbon Dioxide 28.0 Anion Gap 8 BUN 13 Creatinine 1.17 Estim Creat Clear Calc 66.76 Est GFR (MDRD) Af Amer 86 Est GFR (MDRD) Non-Af 71 BUN/Creatinine Ratio 11.1 Glucose 487 H* Calcium 9.1 Troponin I High Sens 5 3 Radiography Chest X-Ray - ED: 1 View, Read by ED Physician and No Acute Disease Diagnostic Testing: Clinical Impression(s) from Imaging Studies Chest X-Ray 04/09/23 21:15 IMPRESSION: Normal x-ray examination of the chest. Electronically Signed: Joce Osobrn MD at 21:37 EDT Reading Location ID and State: [facility] / [place] Tel , Service support , Rhythm Strip Rhythm Strip: Sinus Rhythm Rate: 100 Ectopy: None EKG Initial EKG: Attestation: I personally reviewed and interpreted this EKG as follows: Interpretation: Sinus Rhythm, No Acute Injury Pattern and Non-Specific ST Changes Prior EKG tracings: available for review Prior: Unchanged Discharge Plan Triage Chief Complaint: Chest Pain ED Provider: Justin Diamond Dx/Rx/DC Orders Clinical Impression: Left-sided chest pain, Hyperglycemia due to type 2 diabetes mellitus Instructions: ED Chest Pain, Noncardiac Prescriptions: No Action Jardiance 25 mg PO/SL DAILY omeprazole 80 mg PO/SL DAILY losartan 50 mg Tablet 50 mg PO DAILY Soliqua 100/33 100 unit-33 mcg/mL Insulin Pen 24 unit SUBCUT DAILY aspirin 81 mg Capsule 81 mg PO DAILY metoclopramide HCl [Reglan] 10 mg tablet 10 mg PO Q6H PRN (Reason: nausea and vomiting) Qty: 20 0RF albuterol sulfate 2.5 mg /3 mL (0.083 %) solution for nebulization Patient Comments: USE 1 VIAL IN NEBULIZER EVERY 4 HOURS NEEDED FOR WHEEZING OR SHORTNESS OF BREATH. USE OVER 5 TO 15 MINUTES. atorvastatin 10 mg tablet PO DAILY Trulicity 0.75 mg/0.5 mL pen injector SUBCUT DAILY bupropion HCl 150 mg tablet sustained-release 12 hr PO DAILY epinephrine 0.3 mg/0.3 mL auto-injector Patient Comments: INJECT CONTENTS OF 1 PEN NEEDED FOR ALLERGIC REACTION. meloxicam 15 mg tablet 15 mg PO DAILY rosuvastatin 20 mg tablet 20 mg PO DAILY Patient Comments: TAKE 1 TABLET BY MOUTH ONCE DAILY Primary Care Provider: Linwood Jules Referrals: Linwood Jules MD [Primary Care Provider] - 3-5 Days if not improving Disposition Disposition: Home, Self Care
[2023-04-09] MEDS: Insulin Lispro 100 UNIT/ML INSULN.PEN 16 UNIT SC (22:27)
[2023-04-09 23:11] LABS: Reflex Troponin-HS? (from REC) Y
[2023-04-09 23:53] LABS: Troponin-I HS 3 pg/mL (3.0-78.0)
[2023-04-10 00:35] LABS: Bedside Glucose 434 mg/dL (74-106)
== END 2023-04-10 00:22 | disposition home or self-care (01) ==
PROVIDERS: Emergency Provider Emergency Medicine; PCP Internal Medicine; Visit Provider Emergency Medicine
DX: R07.9 Chest pain, unspecified (principal); J44.9 Chronic obstructive pulmonary disease, unspecified; E11.65 Type 2 diabetes mellitus with hyperglycemia; Z87.891 Personal history of nicotine dependence; I10 Essential (primary) hypertension; E66.9 Obesity, unspecified
CPT/HCPCS: 71045; 80048; 82962; 84484; 85025; 93005; 99283; A4216

== ENCOUNTER 2023-05-20 17:43 | Emergency (ER) | payer SELFPAY ==
[2023-05-20 17:44] VITALS: BP 156/101; PULSE 107; RESP 18; TEMP 35.3; O2SAT 97; BMI 61.9
--- NOTE | 2023-05-20 18:33 | EX.ED.DYSGE1 ---
HPI History of Present Illness Chief Complaint: Cellulitis Informant: patient Narrative Narrative: Patient is a 47-year-old male with history of COPD, diabetes mellitus, insomnia, hypertension and prior cellulitis presenting with fever, chills, myalgias and redness now to his left lower extremity. Patient states he works third shift. He got off of work and went to bed around 6 AM yesterday morning. He notes he woke up and was having chills. He did not notice any redness or skin changes at this time. He slept a lot but every 3 hours or so would wake up with chills. He reports he has had some rigors. He woke up this morning around 930 or 10 AM, had a fever really bad and then went back to sleep until noon. He then noticed redness developing of his left lower leg. Discharged him to come to the ER because of his prior history of cellulitis. States his highest temperature has been 99.2 but he has had subjective fevers that are felt higher. He also notes he has had diffuse body aches and runny nose. He did take a COVID home test prior to arrival which was negative. Denies any sick contacts. Notes his blood sugars been in the 300s. No other complaints or concerns at this time. He states that he has chronic chest discomfort and cough which are unchanged. Does report a history of vein stripping in his legs. Does not think he has had any recent vascular studies for his recurrent cellulitis of his legs. [facility] Medical History COPD (chronic obstructive pulmonary disease) Diabetes Hypertension Home Medications Jardiance 25 mg PO/SL DAILY 06/29/21 [History Last Taken Unknown] omeprazole 80 mg PO/SL DAILY REFLUX 06/29/21 [History Last Taken 01/20/23] aspirin 81 mg capsule 81 mg PO DAILY 12/28/21 [History Last Taken Unknown] insulin glargine 100 unit-lixisenatide 33 mcg/mL subcutaneous pen (Soliqua 100/33) 24 unit subcut DAILY 12/28/21 [History Last Taken Unknown] losartan 50 mg tablet 50 mg PO DAILY 12/28/21 [History Last Taken Unknown] metoclopramide HCl 10 mg tablet (Reglan) 10 mg PO Q6H PRN nausea and vomiting #20 tabs 01/18/23 [Rx Last Taken Unknown] albuterol sulfate 2.5 mg/3 mL (0.083 %) solution for nebulization mg 01/20/23 [History Last Taken Unknown] atorvastatin 10 mg tablet mg PO DAILY COLESTEROL 01/20/23 [History Last Taken 01/20/23] bupropion HCl 150 mg tablet,12 hr sustained-release mg PO DAILY 01/20/23 [History Last Taken 01/20/23] dulaglutide 0.75 mg/0.5 mL subcutaneous pen injector (Trulicity) mg subcut DAILY 01/20/23 [History Last Taken 01/20/23] epinephrine 0.3 mg/0.3 mL injection, auto-injector 01/20/23 [History Last Taken Unknown] meloxicam 15 mg tablet 15 mg PO DAILY 01/20/23 [History Last Taken 01/20/23] rosuvastatin 20 mg tablet 20 mg PO DAILY 01/20/23 [History Last Taken Unknown] cephalexin 500 mg capsule 500 mg PO Q6 #28 CAPSULES 05/20/23 [Rx Last Taken Unknown] sulfamethoxazole 800 mg-trimethoprim 160 mg tablet (Bactrim DS) 1 tab PO BID #14 tabs 05/20/23 [Rx Last Taken Unknown] Allergy/AdvReac Type Severity Reaction Status Date / Time azithromycin [From Zithromax] Allergy Swelling Verified 05/20/23 17:45 bee venom protein (honey bee) Allergy Hives Verified 05/20/23 17:45 codeine Allergy Swelling Verified 05/20/23 17:45 Latex, Natural Rubber Allergy Anaphylaxis Verified 05/20/23 17:45 ondansetron [From Zofran] Allergy Vomiting Verified 05/20/23 17:45 Surgical History History of carpal tunnel repair History of cholecystectomy History of meniscectomy of right knee Social History household members: spouse Smoking Status: Former smoker substance use type: does not use ROS ROS ED Constitutional Constitutional ED: Reports chills and fever(s) ENT ENT ED: Denies rhinorrhea or sore throat Cardiovascular Cardiovascular: Reports chest pain Respiratory/Chest Respiratory/Chest: Reports cough; Denies dyspnea Gastrointestinal Gastrointestinal: Denies abdominal pain, nausea or vomiting Musculoskeletal Musculoskeletal: Reports myalgias; Denies arthralgias Integumentary Reports rash Neurologic Neurologic: Denies headache(s), paresthesias or weakness Psychiatric Psychiatric: Denies anxiety Hematologic/Lymphatic Hematologic/Lymphatic: Denies easy bleeding or easy bruising EXAM Physical Exam Const Vital Signs: 05/20/23 17:44 05/20/23 18:51 05/20/23 18:51 Temperature 95.6 F L 98.5 F 98.5 F Temperature Source Temporal Oral Oral Pulse Rate 107 H 83 83 Respiratory Rate 18 20 H 20 H Blood Pressure 156/101 H 150/86 H 150/86 H Blood Pressure Mean 119 107 107 Pulse Ox 97 94 94 Oxygen Delivery Method Room Air Room Air Room Air 05/20/23 18:51 05/20/23 19:59 05/20/23 20:24 Temperature 98.5 F Temperature Source Temporal Pulse Rate 86 82 Respiratory Rate 20 H 18 Blood Pressure 137/78 H 138/78 H Blood Pressure Mean 97 98 Pulse Ox 95 96 Oxygen Delivery Method Room Air Room Air Room Air Positive well nourished, well developed and obese General Appearance ED: well developed and NAD Nutritional Appearance: obese HEENT Reports moist mucous membranes Eyes PERRL and EOMs intact bilaterally Neck supple Chest Wall inspection of chest normal and palpation of chest normal Resp normal respiratory effort and clear to auscultation bilaterally Cardio regular rhythm and no murmurs Rate: tachycardic GI normal to inspection, nondistended, normoactive bowel sounds and non-tender Extremity Extremity Narrative: No edema of the lower extremities. No deformity. 2+ bilateral DP pulses General Extremety ED: Negative for edema or tenderness General Extremity: Negative for edema Neuro oriented x3 Sensorium / Orientation: alert Motor Exam: Negative for general weakness Psych mental status grossly normal Skin no wounds Skin Narrative: Scattered erythema of the left lower leg. Consistent with an early developing cellulitis. No limited extrusion associated. No open wounds. No crepitus or cords appreciated. MDM MDM MDM Narrative Medical decision making narrative: Patient evaluated for 2 days of myalgias, subjective fever, low-grade temps and now developing redness of the left lower extremity. Has a history of cellulitis as well as diabetes mellitus which used to be poorly controlled. Vital signs upon arrival are significant for mild tachycardia of 107. Patient does have findings with early cellulitis on his left lower extremity. Differential includes cellulitis, DKA, dehydration, [place], and gas gangrene. Patient does not have any open wounds, crepitus or rapidly progressing changes on exam and low suspicion for necrotizing fasciitis. While he is hyperglycemic he has a normal anion gap and normal bicarb. He is given IV fluids as he does have 150 ketones in his urine. He does not have a leukocytosis. Blood cultures are obtained as he is high risk of complication because of his diabetes mellitus. At this time given the early onset of symptoms with normal white blood cell counts I think is reasonable to try oral antibiotics first. Patient states this is worked in the past. He is offered admission for IV antibiotics but declines. Given strict return precautions. Counseled on the importance of blood sugar management to help with infection. Also counseled that he should follow-up with his PCP and possibly benefit from vascular studies given this recurrent cellulitis of his extremities with known diabetes. Lab Data Labs: Laboratory Results - last 24 hr 05/20/23 05/20/23 18:35 20:00 WBC 6.6 RBC 5.49 Hgb 14.8 Hct 47.1 MCV 85.8 MCH 27.0 MCHC 31.4 L RDW Std Deviation 42.7 RDW Coeff of Antonia 13.6 Plt Count 170 MPV 9.8 Immature Gran % (Auto) 1.100 H Neut % (Auto) 69.6 Lymph % (Auto) 22.5 Dane % (Auto) 5.4 Eos % (Auto) 1.2 Baso % (Auto) 0.2 Absolute Neuts (auto) 4.6 Absolute Lymphs (auto) 1.49 Nucleated RBC % 0 PT 12.3 INR 0.9 APTT 24.7 Sodium 138 Potassium 3.9 Chloride 105 Carbon Dioxide 25.0 Anion Gap 8 BUN 20 H Creatinine 0.99 Estim Creat Clear Calc 78.90 Est GFR (MDRD) Af Amer 104 Est GFR (MDRD) Non-Af 86 BUN/Creatinine Ratio 20.1 H Glucose 319 H Lactic Acid 1.1 Calcium 8.5 Total Bilirubin 0.90 AST 31 ALT 52 Alkaline Phosphatase 119 H Total Creatine Kinase 87 Total Protein 7.2 Albumin 3.1 L Globulin 4.1 Albumin/Globulin Ratio 0.8 L Urine Color Yellow Urine Clarity Clear Urine pH 5.0 Ur Specific [place] 1.020 Urine Protein 15 H Urine Glucose (UA) 1000 H Urine Ketones 150 A* Urine Occult Blood Negative Urine Nitrite Negative Urine Bilirubin Negative Urine Urobilinogen Normal Ur Leukocyte Esterase Negative Urine RBC 0 SEEN Urine WBC 0 SEEN Ur Squamous Epith Cells 0-5 SEEN Urine Bacteria 0 SEEN Urine Mucus 0 SEEN Radiography Diagnostic Testing: Clinical Impression(s) from Imaging Studies Chest X-Ray 05/20/23 18:48 IMPRESSION: No radiographic evidence of acute cardiopulmonary disease. Electronically Signed: Clint Sigala MD at 19:24 EDT , Discharge Plan Triage Chief Complaint: Cellulitis ED Provider: Stefanie Delaney Dx/Rx/DC Orders Clinical Impression: Cellulitis of left lower extremity, Elevated blood sugar Instructions: ED Cellulitis, ED Diabetic Hyperglycemia Prescriptions: New sulfamethoxazole-trimethoprim [Bactrim DS] 800-160 mg tablet 1 tab PO BID Qty: 14 0RF cephalexin 500 mg capsule 500 mg PO Q6 Qty: 28 0RF No Action Jardiance 25 mg PO/SL DAILY omeprazole 80 mg PO/SL DAILY losartan 50 mg Tablet 50 mg PO DAILY Soliqua 100/33 100 unit-33 mcg/mL Insulin Pen 24 unit SUBCUT DAILY aspirin 81 mg Capsule 81 mg PO DAILY metoclopramide HCl [Reglan] 10 mg tablet 10 mg PO Q6H PRN (Reason: nausea and vomiting) Qty: 20 0RF albuterol sulfate 2.5 mg /3 mL (0.083 %) solution for nebulization Patient Comments: USE 1 VIAL IN NEBULIZER EVERY 4 HOURS NEEDED FOR WHEEZING OR SHORTNESS OF BREATH. USE OVER 5 TO 15 MINUTES. atorvastatin 10 mg tablet PO DAILY Trulicity 0.75 mg/0.5 mL pen injector SUBCUT DAILY bupropion HCl 150 mg tablet sustained-release 12 hr PO DAILY epinephrine 0.3 mg/0.3 mL auto-injector Patient Comments: INJECT CONTENTS OF 1 PEN NEEDED FOR ALLERGIC REACTION. meloxicam 15 mg tablet 15 mg PO DAILY rosuvastatin 20 mg tablet 20 mg PO DAILY Patient Comments: TAKE 1 TABLET BY MOUTH ONCE DAILY Stand Alone Forms: ED Work / School Excuse Primary Care Provider: Linwood Jules Referrals: Linwood Jules MD [Primary Care Provider] - Activity Restrictions/Additional Instructions: If your redness worsens or after 48 hours of antibiotics or symptoms or not improving please return to the emergency room. Even if your symptoms do improve I recommend you discuss this recurrent cellulitis with your family doctor and possibly discuss further vascular studies. Please try to keep your blood sugars under control. The better control they are the better you will heal. Make sure you are drinking plenty of water like we discussed.
[2023-05-20] MEDS: 0.9% Normal Saline (1000mL) 1,000 ML 999 ML IV (18:42)
--- NOTE | 2023-05-20 18:48 | RAD_ITS ---
INDICATION: cough, fever EXAMINATION/TECHNIQUE: X-RAY - XR Chest 2 Views COMPARISON: None. FINDINGS: LINES/DEVICES: None. LUNGS: No consolidation, edema or effusion. No pneumothorax. MEDIASTINUM AND CARDIOVASCULAR STRUCTURES: Cardiac silhouette not enlarged. Central airways and mediastinal contour are unremarkable. BONES AND SOFT TISSUES: Unremarkable. RAD/Chest PA and Lateral IMPRESSION: No radiographic evidence of acute cardiopulmonary disease. Electronically Signed: Clint Sigala MD at 19:24 EDT ,
[2023-05-20 18:50] LABS: Absolute Lymphocyte Count 1.49 X10^3/uL (0.83-4.51); Absolute Neutrophil Count 4.6 X10^3/uL (2.0-7.7); Basophil# 0.01 X10^3/uL; Basophil% 0.2 % (0-1); Eosinophil# 0.08 X10^3/uL; Eosinophils% 1.2 % (0-5); Hematocrit 47.1 % (40-54); Hemoglobin 14.8 g/dL (13.0-16.5); Lymphocyte # 1.49 X10^3/ul (0.83-4.51); Lymphocyte % 22.5 % (19-41); Mean Corp Hgb Conc 31.4 g/dL (32-36); Mean Corpuscular Volume 85.8 fL (80-94); Mean Platelet Vol. 9.8 fl (6.2-12.0); Monocyte# 0.36 X10^3/uL; Monocyte% 5.4 % (0-10); NRBC Flagged by Analyzer 0 % (0-5); Neutrophil % 69.6 % (47-70); Platelet Count 170 K/mm3 (150-450); RBC Distribution Width CV 13.6 % (11.6-14.6); RBC Distribution Width SD 42.7 fl (35.1-43.9); Red Blood Count 5.49 M/mm3 (4.6-6.2); White Blood Count 6.6 K/mm3 (4.4-11.0)
[2023-05-20 18:51] VITALS: BP 150/86; PULSE 83; RESP 20; TEMP 36.9; O2SAT 94
[2023-05-20 19:00] LABS: International Normalized Ratio 0.9; Prothrombin Time (Protime)PT. 12.3 SECONDS (11.7-14.9)
[2023-05-20 19:01] LABS: Partial Thromboplast Time 24.7 Seconds (24.1-36.2)
[2023-05-20 19:05] LABS: ALB/GLOB Ratio 0.8 RATIO (0.9-2.4); AST(SGOT) 31 U/L (15-37); Alanine Aminotransfer ALT/SGPT 52 U/L (16-61); Albumin, Serum 3.1 g/dL (3.2-5.0); Alkaline Phosphatase 119 U/L (45-117); Anion Gap 8 (5-15); BUN 20 mg/dL (7-18); BUN/Creat Ratio 20.1 RATIO (10-20); CPK Total, Creatine Kinase 87 U/L (39-308); Calcium,Total 8.5 mg/dL (8.5-10.1); Chloride 105 mmol/L (98-107); Creatinine, Serum 0.99 mg/dL (0.70-1.30); EST Glomerular Filtration Rate 86 mL/min (>60); Est Glom Filt Rate - Afr Amer 104 mL/min (>60); Globulin 4.1 g/dL (2.2-4.2); Glucose 319 mg/dL (74-106); Potassium 3.9 mmol/L (3.5-5.1); Protein, Total 7.2 g/dL (6.4-8.2); Sodium Level 138 mmol/L (136-145)
[2023-05-20 19:22] LABS: Lactic Acid 1.1 mmol/L (0.4-1.9)
[2023-05-20 19:59] VITALS: BP 137/78; PULSE 86; RESP 20; TEMP 36.9; O2SAT 95
[2023-05-20 20:11] LABS: Bacteria 0 SEEN /hpf (None Seen); Mucous, Urine 0 SEEN /hpf (<or=2+); Red Blood Cells-Urine 0 SEEN /hpf (0-5); White Blood Cells 0 SEEN /hpf (0-5)
[2023-05-20 20:16] LABS: Color, Urine Yellow (Yellow); Glucose, Dipstick 1000 mg/dl (Normal); Leukocyte Esterase-Dipstick Negative /ul (Negative); Nitrite-Dipstick Negative (Negative); Occult Blood-Urine Negative /ul (Negative); Protein-Dipstick 15 mg/dl (Negative); Urine Bilirubin Dipstick Negative (Negative); Urine Clarity Clear (Clear); Urine Urobilinogen Normal (Normal)
[2023-05-20 20:19] LABS: Ketone-Dipstick 150 mg/dl (Negative)
[2023-05-20 20:23] LABS: Squamous Epithelial Cells - UA 0-5 SEEN /hpf (0-5)
[2023-05-20 20:24] VITALS: BP 138/78; PULSE 82; RESP 18; O2SAT 96
[2023-05-20] MEDS: Smz/Tmp Ds Tablet 1 TABLET PO (21:14)
[2023-05-20] MEDS: Cephalexin 250 MG Capsule 500 MG PO (21:14)
== END 2023-05-20 21:21 | disposition home or self-care (01) ==
PROVIDERS: Emergency Provider Emergency Medicine; PCP Internal Medicine; Visit Provider Emergency Medicine
DX: L03.116 Cellulitis of left lower limb (principal); J44.9 Chronic obstructive pulmonary disease, unspecified; E11.65 Type 2 diabetes mellitus with hyperglycemia; Z79.4 Long term (current) use of insulin; Z87.891 Personal history of nicotine dependence; I10 Essential (primary) hypertension; Z79.899 Other long term (current) drug therapy; Z79.82 Long term (current) use of aspirin; Z79.85 Long-term (current) use of injectable non-insulin antidiabetic drugs; Z90.49 Acquired absence of other specified parts of digestive tract
CPT/HCPCS: 71046; 80053; 81001; 82550; 83605; 85025; 85610; 85730; 87040; 87086; 87088; 87149; 87811; 93005; 96360; 99285; J7030; A4216

== ENCOUNTER 2023-06-09 17:50 | Inpatient (IN) | payer SELFPAY ==
[2023-06-09 17:51] VITALS: BP 167/107; PULSE 107; RESP 16; TEMP 36.5; O2SAT 96; BMI 59.5
[2023-06-09 21:00] VITALS: RESP 18
[2023-06-09] MEDS: 0.9% Normal Saline (1000mL) 1,000 ML 1000 ML IV (21:23)
[2023-06-09 21:34] LABS: Absolute Lymphocyte Count 2.12 X10^3/uL (0.83-4.51); Absolute Neutrophil Count 3.1 X10^3/uL (2.0-7.7); Basophil# 0.03 X10^3/uL; Basophil% 0.5 % (0-1); Eosinophil# 0.15 X10^3/uL; Eosinophils% 2.6 % (0-5); Hematocrit 47.9 % (40-54); Hemoglobin 15.2 g/dL (13.0-16.5); Lymphocyte # 2.12 X10^3/ul (0.83-4.51); Lymphocyte % 36.6 % (19-41); Mean Corp Hgb Conc 31.7 g/dL (32-36); Mean Corpuscular Volume 85.2 fL (80-94); Mean Platelet Vol. 9.7 fl (6.2-12.0); Monocyte# 0.34 X10^3/uL; Monocyte% 5.9 % (0-10); NRBC Flagged by Analyzer 0 % (0-5); Neutrophil # 3.11 X10^3/uL (2.7-7.7); Neutrophil % 53.7 % (47-70); Platelet Count 203 K/mm3 (150-450); RBC Distribution Width CV 13.8 % (11.6-14.6); RBC Distribution Width SD 42.7 fl (35.1-43.9); Red Blood Count 5.62 M/mm3 (4.6-6.2); White Blood Count 5.8 K/mm3 (4.4-11.0)
[2023-06-09 22:00] LABS: ALB/GLOB Ratio 0.8 RATIO (0.9-2.4); AST(SGOT) 32 U/L (15-37); Alanine Aminotransfer ALT/SGPT 57 U/L (16-61); Albumin, Serum 3.3 g/dL (3.2-5.0); Alkaline Phosphatase 105 U/L (45-117); Anion Gap 7 (5-15); BUN 13 mg/dL (7-18); BUN/Creat Ratio 16.3 RATIO (10-20); Calcium,Total 8.8 mg/dL (8.5-10.1); Chloride 105 mmol/L (98-107); EST Glomerular Filtration Rate 111 mL/min (>60); Est Glom Filt Rate - Afr Amer 134 mL/min (>60); Estimated Creatinine Clearance 100.36 ml/min; Globulin 4.1 g/dL (2.2-4.2); Glucose 333 mg/dL (74-106); Lipase 19 U/L (13-75); Potassium 3.9 mmol/L (3.5-5.1); Protein, Total 7.4 g/dL (6.4-8.2); Sodium Level 136 mmol/L (136-145)
[2023-06-09 22:00] LABS: Bacteria 0 SEEN /hpf (None Seen); Mucous, Urine 0 SEEN /hpf (<or=2+); Red Blood Cells-Urine 0 SEEN /hpf (0-5); White Blood Cells 0 SEEN /hpf (0-5)
[2023-06-09 22:02] LABS: Color, Urine Yellow (Yellow); Glucose, Dipstick 1000 mg/dl (Normal); Leukocyte Esterase-Dipstick Negative /ul (Negative); Nitrite-Dipstick Negative (Negative); Occult Blood-Urine Negative /ul (Negative); Protein-Dipstick 15 mg/dl (Negative); Urine Bilirubin Dipstick Negative (Negative); Urine Clarity Clear (Clear); Urine Urobilinogen Normal (Normal)
[2023-06-09 22:04] LABS: Ketone-Dipstick 150 mg/dl (Negative)
[2023-06-09 22:07] LABS: Lactic Acid 1.7 mmol/L (0.4-1.9)
[2023-06-09] MEDS: Vancomycin HCl 2,000 MG in 0.9% Normal Saline (500mL Bag) 500 ML 250 MG IV (22:14)
[2023-06-09 22:31] LABS: Squamous Epithelial Cells - UA 0-5 SEEN /hpf (0-5)
[2023-06-09 23:00] VITALS: BP 129/87; PULSE 77; RESP 20; O2SAT 96
--- NOTE | 2023-06-09 23:20 | HP.PCM.HOS_ITS ---
HPI - General General Date of Admission: 06/09/23 Date of Service: 06/09/23 Chief Complaint: LLE pain, swelling and redness HPI Narrative NETTA JARQUIN, is a 48 M who presents [facility] Medical History COPD (chronic obstructive pulmonary disease) Diabetes Hypertension Home Medications Jardiance 25 mg PO/SL DAILY 06/29/21 [History Last Taken Unknown] omeprazole 80 mg PO/SL DAILY REFLUX 06/29/21 [History Last Taken 01/20/23] aspirin 81 mg capsule 81 mg PO DAILY 12/28/21 [History Last Taken Unknown] insulin glargine 100 unit-lixisenatide 33 mcg/mL subcutaneous pen (Soliqua 100/33) 24 unit subcut DAILY 12/28/21 [History Last Taken Unknown] losartan 50 mg tablet 50 mg PO DAILY 12/28/21 [History Last Taken Unknown] metoclopramide HCl 10 mg tablet (Reglan) 10 mg PO Q6H PRN nausea and vomiting #20 tabs 01/18/23 [Rx Last Taken Unknown] albuterol sulfate 2.5 mg/3 mL (0.083 %) solution for nebulization mg 01/20/23 [History Last Taken Unknown] atorvastatin 10 mg tablet mg PO DAILY COLESTEROL 01/20/23 [History Last Taken 01/20/23] bupropion HCl 150 mg tablet,12 hr sustained-release mg PO DAILY 01/20/23 [History Last Taken 01/20/23] dulaglutide 0.75 mg/0.5 mL subcutaneous pen injector (Trulicity) mg subcut DAILY 01/20/23 [History Last Taken 01/20/23] epinephrine 0.3 mg/0.3 mL injection, auto-injector 01/20/23 [History Last Taken Unknown] meloxicam 15 mg tablet 15 mg PO DAILY 01/20/23 [History Last Taken 01/20/23] rosuvastatin 20 mg tablet 20 mg PO DAILY 01/20/23 [History Last Taken Unknown] cephalexin 500 mg capsule 500 mg PO Q6 #28 CAPSULES 05/20/23 [Rx Last Taken Unknown] sulfamethoxazole 800 mg-trimethoprim 160 mg tablet (Bactrim DS) 1 tab PO BID #14 tabs 05/20/23 [Rx Last Taken Unknown] Allergy/AdvReac Type Severity Reaction Status Date / Time azithromycin [From Zithromax] Allergy Swelling Verified 06/09/23 17:53 bee venom protein (honey bee) Allergy Hives Verified 06/09/23 17:53 codeine Allergy Swelling Verified 06/09/23 17:53 Latex, Natural Rubber Allergy Anaphylaxis Verified 06/09/23 17:53 ondansetron [From Zofran] Allergy Vomiting Verified 06/09/23 17:53 Family History (Updated 06/10/23 @ 00:[address] Slime Hernandez DO) Other Diabetes Hypertension Surgical History History of carpal tunnel repair History of cholecystectomy History of meniscectomy of right knee Social History (Updated 06/10/23 @ 00:[address] Slime Hernandez DO) household members: spouse Smoking Status: Former smoker alcohol intake: never substance use type: does not use Vital Signs Vital Signs Vital Signs: 06/09/23 17:51 Temperature 97.7 F L Temperature Source Temporal Pulse Rate 107 H Respiratory Rate 16 Blood Pressure 167/107 H Blood Pressure Mean 127 Pulse Ox 96 Oxygen Delivery Method Room Air Weight Weight: 162.159 kg Body Mass Index (BMI) 59.5 Results Lab / Micro Data 06/09/23 21:25 06/09/23 21:25 Labs: Laboratory Results - last 24 hr 06/09/23 21:25: WBC 5.8, RBC 5.62, Hgb 15.2, Hct 47.9, MCV 85.2, MCH 27.0, MCHC 31.7 L, RDW Std Deviation 42.7, RDW Coeff of Antonia 13.8, Plt Count 203, MPV 9.7, Immature Gran % (Auto) 0.700, Neut % (Auto) 53.7, Lymph % (Auto) 36.6, [place] % (Auto) 5.9, Eos % (Auto) 2.6, Baso % (Auto) 0.5, Absolute Neuts (auto) 3.1, Absolute Lymphs (auto) 2.12, Nucleated RBC % 0, Sodium 136, Potassium 3.9, Chloride 105, Carbon Dioxide 24.0, Anion Gap 7, BUN 13, Creatinine 0.80, Estim Creat Clear Calc 100.36, Est GFR (MDRD) Af Amer 134, Est GFR (MDRD) Non-Af 111, BUN/Creatinine Ratio 16.3, Glucose 333 H, Lactic Acid 1.7, Calcium 8.8, Total Bilirubin 0.70, AST 32, ALT 57, Alkaline Phosphatase 105, Total Protein 7.4, Albumin 3.3, Globulin 4.1, Albumin/Globulin Ratio 0.8 L, Lipase 19 06/09/23 21:52: Urine Color Yellow, Urine Clarity Clear, Urine pH 6.0, Ur Specific [place] 1.020, Urine Protein 15 H, Urine Glucose (UA) 1000 H, Urine Ketones 150 A*, Urine Occult Blood Negative, Urine Nitrite Negative, Urine Bilirubin Negative, Urine Urobilinogen Normal, Ur Leukocyte Esterase Negative, Urine RBC 0 SEEN, Urine WBC 0 SEEN, Ur Squamous Epith Cells 0-5 SEEN, Urine Bacteria 0 SEEN, Urine Mucus 0 SEEN Charges/Coding Visit Charges Inpatient E&M: 70326 Init Hosp L2
--- NOTE | 2023-06-09 23:20 | PCM.HP.STD ---
HPI - General General Date of Admission: 06/09/23 Date of Service: 06/09/23 Chief Complaint: LLE pain, swelling and redness HPI Narrative NETTA JARQUIN, is a 48 M who presented to the emergency department at [facility] on 06/09/2023 complaining of recurrent left lower extremity cellulitis. The patient was seen and evaluated in the emergency department on 05/20/2023 and diagnosed with a left lower extremity cellulitis. He was prescribed Bactrim and Keflex and took the entire course of both antibiotics. He completed the course 2 to 3 days ago. It sounds as if he was given a 10-day course. He indicated he woke up yesterday morning with chills, fever, some nausea and some vomiting. He thought maybe had COVID and took a test which was negative. This morning when he woke up he noted that he had redness in the posterior aspect of his calf and continued to feel poorly. He took his temperature at home and was found to be 101 so he came to the emergency department for reevaluation. Patient states that he has had at least 6-7 bouts of cellulitis in his left lower extremity since 2019. He has issues with bilateral lower extremity tinea pedis that is blistering in nature that I suspect may be the nidus for his infection. He is a diabetic and per discussion with him sounds very poorly controlled as he reports his baseline blood sugars run between 200 and 300. He does not follow with endocrinology. Vital signs at presentation showed temperature of 97.7, initial heart rate was 107 with repeat at 77, blood pressure is 129/87, respiratory rate was 16-20 and oxygen saturation was 96% on room air. His CBC is actually unremarkable. Chemistry panel is unremarkable other than marked hyperglycemia with a blood glucose of 333. Lactic acid was normal at 1.7. Liver functions unremarkable. His lipase was 19. He had a UA which showed some ketones probably related to his decreased p.o. intake, glucosuria as well as proteinuria. There is no signs of infection. He was given vancomycin and Zosyn in the emergency department and request for admission was made given he was treated with a full course of antibiotics and his symptoms came back so quickly. [facility] Medical History (Updated 06/10/23 @ 00:[address] Slime Hernandez DO) COPD (chronic obstructive pulmonary disease) Diabetes GERD (gastroesophageal reflux disease) Hypertension PATRICIA (obstructive sleep apnea) Home Medications Jardiance 25 mg PO DAILY 06/29/21 [History Last Taken Unknown] omeprazole 80 mg PO/SL DAILY REFLUX 06/29/21 [History Last Taken 01/20/23] aspirin 81 mg capsule 81 mg PO DAILY 12/28/21 [History Last Taken Unknown] losartan 50 mg tablet 50 mg PO DAILY 12/28/21 [History Last Taken Unknown] albuterol sulfate 2.5 mg/3 mL (0.083 %) solution for nebulization 2.5 mg inhalation Q4H PRN shortness of breath or wheezing 01/20/23 [History Last Taken Unknown] bupropion HCl 150 mg tablet,12 hr sustained-release 150 mg PO DAILY 01/20/23 [History Last Taken 01/20/23] dulaglutide 0.75 mg/0.5 mL subcutaneous pen injector (Trulicity) 0.75 mg subcut QWEEK 01/20/23 [History Last Taken 06/03/23] epinephrine 0.3 mg/0.3 mL injection, auto-injector 0.3 ml IM PRN allergic reaction 01/20/23 [History Last Taken Unknown] meloxicam 15 mg tablet 15 mg PO DAILY 01/20/23 [History Last Taken 01/20/23] rosuvastatin 20 mg tablet 20 mg PO DAILY 01/20/23 [History Last Taken Unknown] albuterol sulfate 90 mcg/actuation aerosol inhaler (Ventolin HFA) 2 puff inhalation Q4H PRN shortness of breath or wheezing 06/10/23 [History Last Taken Unknown] fluticasone fur. 200 mcg-umeclid 62.5 mcg-vilant 25 mcg inhalat.powder (Trelegy Ellipta) 1 inh inhalation DAILY 06/10/23 [History Last Taken Unknown] insulin glargine 100 unit/mL (3 mL) subcutaneous pen (Lantus Solostar U-100 Insulin) 22 unit subcut QHS 06/10/23 [History Last Taken Unknown] Allergy/AdvReac Type Severity Reaction Status Date / Time azithromycin [From Zithromax] Allergy Swelling Verified 06/09/23 17:53 bee venom protein (honey bee) Allergy Hives Verified 06/09/23 17:53 codeine Allergy Swelling Verified 06/09/23 17:53 Latex, Natural Rubber Allergy Anaphylaxis Verified 06/09/23 17:53 ondansetron [From Zofran] Allergy Vomiting Verified 06/09/23 17:53 Family History (Updated 06/10/23 @ 00:[address] Slime Hernandez DO) Other Diabetes Hypertension Surgical History History of carpal tunnel repair History of cholecystectomy History of meniscectomy of right knee Social History (Updated 06/10/23 @ 00:[address] Slime Hernandez DO) household members: spouse Smoking Status: Former smoker alcohol intake: never substance use type: does not use ROS Constitutional Constitutional: Reports chills, fatigue, fever(s) and malaise; Denies anorexia, change in weight, night sweats, weakness or other Eyes Eyes: Denies blurry vision, change in eye color, change in vision, discharge from eye(s), double vision, erythema, eye pain, loss of vision or other ENT HEENT: Denies abnormal hearing, dysphagia, ear pain, epistaxis, headache(s), hearing loss, nasal congestion, nasal discharge, post nasal drip, sinus pressure, sore throat or other Cardiovascular Cardiovascular: Denies chest pain, claudication, dyspnea on exertion, edema, lightheadedness, orthopnea, palpitations, paroxysmal nocturnal dyspnea, rapid heart rate, syncope or other Respiratory/Chest Respiratory/Chest: Denies cough, dyspnea, excessive phlegm production, hemoptysis, productive cough, shortness of breath at rest, shortness of breath with exertion, wheezing or other Gastrointestinal Gastrointestinal: Reports nausea and vomiting; Denies abdominal pain, coffee ground emesis, constipation, diarrhea, dyspepsia, hematemesis, hematochezia, loose stools, melena or other Genitourinary Genitourinary: Denies burning urination, difficulty urinating, dysuria, hematuria, nocturia, urinary frequency, urinary hesitancy, urinary incontinence, urinary urgency or other Musculoskeletal Musculoskeletal: Reports other Details: L Leg pain and swelling Neurologic Neurologic: Reports abnormal gait; Denies abnormal speech, confusion, disequilibrium, dizziness, focal weakness, headache(s), numbness, paresthesias, seizure-like activity, seizures, syncope, tingling, tremor(s) or other Psychiatric Psychiatric: Denies anxiety, depression, homicidal ideation, suicidal ideation or other Endocrine Endocrinology: Denies change in body appearance, cold intolerance, excessive sweating, heat intolerance, polydipsia, polyuria or other Hematologic/Lymphatic Hematologic/Lymphatic: Denies anemia, easy bleeding, easy bruising, lymphadenopathy or other Allergic/Immunologic Allergic/Immunologic: Denies rhinitis, hives, eczemia, asthma or other Vital Signs Vital Signs Vital Signs: 06/09/23 17:51 Temperature 97.7 F L Temperature Source Temporal Pulse Rate 107 H Respiratory Rate 16 Blood Pressure 167/107 H Blood Pressure Mean 127 Pulse Ox 96 Oxygen Delivery Method Room Air Weight Weight: 162.159 kg Body Mass Index (BMI) 59.5 Physical Exam Const Constitutional Narrative: The obese, white male, sitting up in bed eating a sandwich and yogurt, watching television, nursing at bedside, patient appears comfortable and nontoxic General Appearance: cooperative HEENT normocephalic, head/scalp atraumatic, hearing grossly normal bilaterally and moist oral mucous membranes HEENT Narrative: Mallampati 2-3, no thrush Eyes PERRL, EOMs intact bilaterally and conjunctivae normal Resp normal respiratory effort, no retractions, no use of accessory muscles and clear to auscultation bilaterally Cardio regular rate, regular rhythm, S1 normal heart sound, S2 normal heart sound, no murmurs, no rub, no gallops and no clicks GI normal to inspection, nondistended, normoactive bowel sounds, soft to palpation and non-tender GI Narrative: Large protuberant abdomen Extremity Extremity Narrative: Patient with mild left lower extremity swelling and erythema, no cyanosis or clubbing Skin Skin Narrative: Left lower extremity with patchy erythematous areas that seem to be spreading from the posterior aspect of his left calf around to the anterior area of his lower leg and proximally towards the genu of his knee, bilateral foot tinea pedis with few small open areas bilaterally on the plantar surface of his feet Neuro oriented x3, CN's II-XII intact bilaterally, moves all extremities and no focal motor deficits Speech: speech normal Psych affect normal Psych Narrative: Very pleasant, interacts appropriately Results Lab / Micro Data 06/09/23 21:25 06/09/23 21:25 Labs: Laboratory Results - last 24 hr 06/09/23 21:25: WBC 5.8, RBC 5.62, Hgb 15.2, Hct 47.9, MCV 85.2, MCH 27.0, MCHC 31.7 L, RDW Std Deviation 42.7, RDW Coeff of Antonia 13.8, Plt Count 203, MPV 9.7, Immature Gran % (Auto) 0.700, Neut % (Auto) 53.7, Lymph % (Auto) 36.6, [place] % (Auto) 5.9, Eos % (Auto) 2.6, Baso % (Auto) 0.5, Absolute Neuts (auto) 3.1, Absolute Lymphs (auto) 2.12, Nucleated RBC % 0, Sodium 136, Potassium 3.9, Chloride 105, Carbon Dioxide 24.0, Anion Gap 7, BUN 13, Creatinine 0.80, Estim Creat Clear Calc 100.36, Est GFR (MDRD) Af Amer 134, Est GFR (MDRD) Non-Af 111, BUN/Creatinine Ratio 16.3, Glucose 333 H, Lactic Acid 1.7, Calcium 8.8, Total Bilirubin 0.70, AST 32, ALT 57, Alkaline Phosphatase 105, Total Protein 7.4, Albumin 3.3, Globulin 4.1, Albumin/Globulin Ratio 0.8 L, Lipase 19 06/09/23 21:52: Urine Color Yellow, Urine Clarity Clear, Urine pH 6.0, Ur Specific [place] 1.020, Urine Protein 15 H, Urine Glucose (UA) 1000 H, Urine Ketones 150 A*, Urine Occult Blood Negative, Urine Nitrite Negative, Urine Bilirubin Negative, Urine Urobilinogen Normal, Ur Leukocyte Esterase Negative, Urine RBC 0 SEEN, Urine WBC 0 SEEN, Ur Squamous Epith Cells 0-5 SEEN, Urine Bacteria 0 SEEN, Urine Mucus 0 SEEN Assessment & Plan Assessment/Plan (1) Failure of outpatient treatment: (2) Cellulitis of left lower extremity: (3) Hyperglycemia: (4) Tinea pedis: PLAN: Plan Left lower extremity cellulitis with outpatient treatment failure -This is recurrent patient has had issues since 2019 with about 6 total episodes of cellulitis in this left lower extremity -Completed courses of Keflex and Bactrim with recurrence after 2 to 3 days of antibiotic cessation -We will cover for Pseudomonas and MRSA with his history of diabetes and recurrent infection -No wounds to culture -Patient does have some open areas related to tinea pedis on his bilateral feet plantar surfaces -Outline erythematous area Tinea pedis -Topical nystatin twice daily -Could be nidus for infection DM-2 with hyperglycemia -Patient reports his baseline blood sugars run between 203 100 -Continue subcu Lantus -Continue home Jardiance -Hold home Trulicity and restart at discharge -Check hemoglobin A1c -Carb controlled diet -SSI 3 times daily -Accu-Cheks as ordered Hypertension -Continue home losartan Hyperlipidemia -Continue home rosuvastatin with therapeutic substitution and atorvastatin GERD -Continue home PPI PATRICIA -Continue home CPAP at 16 cmH2O nocturnally COPD -Former smoker -Continue home inhalers Morbid obesity -BMI 59.5 -Recommend weight loss -Complicates treatment, prognosis, outcomes Depression -Continue home bupropion DVT prophylaxis -Lovenox 40 mg twice daily -Encourage mobility CODE STATUS Full code Charges/Coding Visit Charges Inpatient E&M: 86598 Init Hosp L2
--- NOTE | 2023-06-09 23:30 | EDS_ITS ---
HPI History of Present Illness Chief Complaint: Cellulitis Informant: patient Narrative Narrative: Patient is a 48-year-old male with history of hyperlipidemia, diabetes mellitus and GERD presenting with recurrence leg redness, warmth and pain with fever. Patient was seen and evaluated in the ER on 05/20/2023 and diagnosed with cellulitis of the left lower extremity. He was prescribed Bactrim and Keflex. He took the entire course and finished the antibiotics 2 to 3 days ago. Yesterday morning he woke up with chills, fever, nausea and vomiting. Usually that maybe he had COVID and took a test. This was negative. This morning when he woke up he noticed he had redness especially in the posterior calf. He is continued to feel poorly. He states his maximum temperature was 101 ?F. No other complaints at this time. Notes he has had cellulitis in this leg multiple times however it is never occurred with this much frequency. Chart view shows that patient was treated for cellulitis in November 2021 as well as March 2022. [facility] Medical History (Updated 06/10/23 @ 00:[address] Slime Hernandez, DO) COPD (chronic obstructive pulmonary disease) Diabetes GERD (gastroesophageal reflux disease) Hypertension PATRICIA (obstructive sleep apnea) Home Medications Jardiance 25 mg PO DAILY 06/29/21 [History Last Taken Unknown] omeprazole 80 mg PO/SL DAILY REFLUX 06/29/21 [History Last Taken 01/20/23] aspirin 81 mg capsule 81 mg PO DAILY 12/28/21 [History Last Taken Unknown] losartan 50 mg tablet 50 mg PO DAILY 12/28/21 [History Last Taken Unknown] albuterol sulfate 2.5 mg/3 mL (0.083 %) solution for nebulization 2.5 mg inhalation Q4H PRN shortness of breath or wheezing 01/20/23 [History Last Taken Unknown] bupropion HCl 150 mg tablet,12 hr sustained-release 150 mg PO DAILY 01/20/23 [History Last Taken 01/20/23] dulaglutide 0.75 mg/0.5 mL subcutaneous pen injector (Trulicity) 0.75 mg subcut QWEEK 01/20/23 [History Last Taken 06/03/23] epinephrine 0.3 mg/0.3 mL injection, auto-injector 0.3 ml IM PRN allergic reaction 01/20/23 [History Last Taken Unknown] meloxicam 15 mg tablet 15 mg PO DAILY 01/20/23 [History Last Taken 01/20/23] rosuvastatin 20 mg tablet 20 mg PO DAILY 01/20/23 [History Last Taken Unknown] albuterol sulfate 90 mcg/actuation aerosol inhaler (Ventolin HFA) 2 puff inhalation Q4H PRN shortness of breath or wheezing 06/10/23 [History Last Taken Unknown] fluticasone fur. 200 mcg-umeclid 62.5 mcg-vilant 25 mcg inhalat.powder (Trelegy Ellipta) 1 inh inhalation DAILY 06/10/23 [History Last Taken Unknown] insulin glargine 100 unit/mL (3 mL) subcutaneous pen (Lantus Solostar U-100 Insulin) 22 unit subcut QHS 06/10/23 [History Last Taken Unknown] Allergy/AdvReac Type Severity Reaction Status Date / Time azithromycin [From Zithromax] Allergy Swelling Verified 06/09/23 17:53 bee venom protein (honey bee) Allergy Hives Verified 06/09/23 17:53 codeine Allergy Swelling Verified 06/09/23 17:53 Latex, Natural Rubber Allergy Anaphylaxis Verified 06/09/23 17:53 ondansetron [From Zofran] Allergy Vomiting Verified 06/09/23 17:53 Family History (Updated 06/10/23 @ 00:[address] Slime Hernandez DO) Other Diabetes Hypertension Surgical History History of carpal tunnel repair History of cholecystectomy History of meniscectomy of right knee Social History (Updated 06/10/23 @ 00:[address] Slime Hernandez DO) household members: spouse Smoking Status: Former smoker alcohol intake: never substance use type: does not use ROS ROS ED Constitutional Constitutional ED: Reports chills and fever(s) Eyes Eyes: Denies change in vision Cardiovascular Cardiovascular: Denies chest pain Respiratory/Chest Respiratory/Chest: Denies cough Gastrointestinal Gastrointestinal: Reports nausea and vomiting; Denies abdominal pain Genitourinary Genitourinary ED: Denies dysuria or urinary frequency Musculoskeletal Musculoskeletal: Reports other Details: left lower leg pin ; Denies arthralgias Integumentary Reports rash Neurologic Neurologic: Denies headache(s), paresthesias or weakness EXAM Physical Exam Const Vital Signs: 06/09/23 17:51 06/09/23 21:00 06/09/23 23:00 Temperature 97.7 F L Temperature Source Temporal Pulse Rate 107 H 77 Respiratory Rate 16 18 20 H Blood Pressure 167/107 H 129/87 H Blood Pressure Mean 127 101 Pulse Ox 96 96 Oxygen Delivery Method Room Air Room Air Positive well nourished, well developed and obese General Appearance ED: well developed and NAD Nutritional Appearance: obese HEENT Reports moist mucous membranes Neck supple Chest Wall inspection of chest normal Resp normal respiratory effort and clear to auscultation bilaterally Cardio regular rate, regular rhythm and no murmurs GI normal to inspection, nondistended, normoactive bowel sounds and non-tender Extremity Extremity Narrative: No deformity of the extremities. No significant edema. 2+ DP pulses. Neuro oriented x3 Sensorium / Orientation: alert Motor Exam: Negative for general weakness Psych mental status grossly normal Skin Skin Narrative: Scattered erythema and warmth of the left lower leg most pronounced in the posterior calf. It is not circumferential at this time. Is consistent with cellulitis. No associated lymphangitic streaking at this time. No open wounds or crepitus. MDM MDM MDM Narrative Medical decision making narrative: Patient is evaluated for recurrent infectious symptoms as well as recurrent redness of his left lower leg. Physical exam most consistent with cellulitis. Differential includes sepsis, cellulitis, failure of outpatient treatment as well as hyperglycemia. He has good distal pulses and I do not think there is an acute arterial/venous insufficiency however he could have a more chronic insufficiency that is predisposing him to this frequent cellulitis. His blood sugar continues to be elevated at 333. His white blood cell count, lactate and other blood work largely normal. Urinalysis not consistent with infection but does appear 150 ketones. Patient is given IV fluids in the ER. As he had just been on Bactrim and Keflex we will broaden his antibiotics to vancomycin and after discussion with hospitalist added Zosyn to cover Pseudomonas. Given that within 48 hours of stopping antibiotics his symptoms recurred quite quickly I would consider this a failure of outpatient antibiotics admit him for IV antibiotics. Patient is agreeable with this. Lab Data Labs: Laboratory Results - last 24 hr 06/09/23 06/09/23 21:25 21:52 WBC 5.8 RBC 5.62 Hgb 15.2 Hct 47.9 MCV 85.2 MCH 27.0 MCHC 31.7 L RDW Std Deviation 42.7 RDW Coeff of Antonia 13.8 Plt Count 203 MPV 9.7 Immature Gran % (Auto) 0.700 Neut % (Auto) 53.7 Lymph % (Auto) 36.6 [place] % (Auto) 5.9 Eos % (Auto) 2.6 Baso % (Auto) 0.5 Absolute Neuts (auto) 3.1 Absolute Lymphs (auto) 2.12 Nucleated RBC % 0 Sodium 136 Potassium 3.9 Chloride 105 Carbon Dioxide 24.0 Anion Gap 7 BUN 13 Creatinine 0.80 Estim Creat Clear Calc 100.36 Est GFR (MDRD) Af Amer 134 Est GFR (MDRD) Non-Af 111 BUN/Creatinine Ratio 16.3 Glucose 333 H Lactic Acid 1.7 Calcium 8.8 Total Bilirubin 0.70 AST 32 ALT 57 Alkaline Phosphatase 105 Total Protein 7.4 Albumin 3.3 Globulin 4.1 Albumin/Globulin Ratio 0.8 L Lipase 19 Urine Color Yellow Urine Clarity Clear Urine pH 6.0 Ur Specific [place] 1.020 Urine Protein 15 H Urine Glucose (UA) 1000 H Urine Ketones 150 A* Urine Occult Blood Negative Urine Nitrite Negative Urine Bilirubin Negative Urine Urobilinogen Normal Ur Leukocyte Esterase Negative Urine RBC 0 SEEN Urine WBC 0 SEEN Ur Squamous Epith Cells 0-5 SEEN Urine Bacteria 0 SEEN Urine Mucus 0 SEEN Discharge Plan Triage Chief Complaint: Cellulitis ED Provider: Stefanie Delaney Dx/Rx/DC Orders Clinical Impression: Cellulitis of left lower extremity, Hyperglycemia, Failure of outpatient treatment Prescriptions: No Action Jardiance 25 mg PO DAILY omeprazole 80 mg PO/SL DAILY losartan 50 mg Tablet 50 mg PO DAILY aspirin 81 mg Capsule 81 mg PO DAILY albuterol sulfate 2.5 mg /3 mL (0.083 %) solution for nebulization 2.5 mg inhalation Q4H PRN (Reason: shortness of breath or wheezing) Patient Comments: USE 1 VIAL IN NEBULIZER EVERY 4 HOURS NEEDED FOR WHEEZING OR SHORTNESS OF BREATH. USE OVER 5 TO 15 MINUTES. Trulicity 0.75 mg/0.5 mL pen injector 0.75 mg SUBCUT QWEEK bupropion HCl 150 mg tablet sustained-release 12 hr 150 mg PO DAILY epinephrine 0.3 mg/0.3 mL auto-injector 0.3 ml IM PRN Patient Comments: INJECT CONTENTS OF 1 PEN NEEDED FOR ALLERGIC REACTION. meloxicam 15 mg tablet 15 mg PO DAILY rosuvastatin 20 mg tablet 20 mg PO DAILY Patient Comments: TAKE 1 TABLET BY MOUTH ONCE DAILY Trelegy Ellipta 200-62.5-25 mcg blister with device 1 inh INHALATION DAILY Patient Comments: INHALE 1 PUFF ONCE DAILY insulin glargine [Lantus Solostar U-100 Insulin] 100 unit/mL (3 mL) insulin pen 22 unit SUBCUT QHS Patient Comments: INJECT 22 UNITS SUBCUTANEOULSY ONCE DAILY AT BEDTIME albuterol sulfate [Ventolin HFA] 90 mcg/actuation HFA aerosol inhaler 2 puff INHALATION Q4H PRN (Reason: shortness of breath or wheezing) Patient Comments: pt states my pulmonary doctor says take 4 puffs Rx Instructions: INHALE 2 PUFFS BY MOUTH EVERY 4 HOURS NEEDED FOR WHEEZING OR SHORTNESS OF BREATH Primary Care Provider: Linwood Jules Referrals: Linwood Jules MD [Primary Care Provider] -
[2023-06-10] MEDS: Piperacil/Tazobactam 4.5 GM in 0.9% Normal Saline (100mL MB+) 100 ML IV (00:59)
[2023-06-10 01:00] VITALS: RESP 20
[2023-06-10 01:42] VITALS: BMI 62.1
--- NOTE | 2023-06-10 01:59 | PCM.RX.CS ---
Consult Antibiotic Management Pharmacy has been consulted to manage selected antiobiotic: Vancomycin Type of Intervention Type of Consult: New start Labs Labs: Sodium 136 mmol/L (136-145) 06/09/23 21:25 Potassium 3.9 mmol/L (3.5-5.1) 06/09/23 21:25 Chloride 105 mmol/L (98-107) 06/09/23 21:25 Carbon Dioxide 24.0 mmol/L (21.0-32.0) 06/09/23 21:25 Anion Gap 7 (5-15) 06/09/23 21:25 BUN 13 mg/dL (7-18) 06/09/23 21:25 Creatinine 0.80 mg/dL (0.70-1.30) 06/09/23 21:25 Est GFR (MDRD) Af Amer 134 mL/min (>60) 06/09/23 21:25 Est GFR (MDRD) Non-Af 111 mL/min (>60) 06/09/23 21:25 BUN/Creatinine Ratio 16.3 RATIO (10-20) 06/09/23 21:25 Glucose 333 mg/dL (74-106) H 06/09/23 21:25 Dosing Weight Weight used for dosin.1 kg Estimated Creatinine Clearance Estimated Creatinine Clearance: >120 Goal Trough Goal Trough: 10-15 mcg/mL Pharmacy Plan for Drug Dosing Pharmacy Plan for Drug Dosing: Pharmacy Service will continue to monitor and adjust dosing as required. Follow-Up Labs Follow-Up Labs: Trough: Vancomycin Date/Time Labs Ordered Labs to be done on [date and time ordered]: 06/11 @ 6062
[2023-06-10 02:02] VITALS: BP 146/91; PULSE 79; RESP 16; TEMP 36.2; O2SAT 97
[2023-06-10 02:06] LABS: Hemoglobin A1c 11.9 % (3.8-5.6)
[2023-06-10 04:30] VITALS: PULSE 72; RESP 16; O2SAT 96
[2023-06-10 05:20] VITALS: PULSE 70; RESP 12; O2SAT 97
[2023-06-10] MEDS: 0.9% Normal Saline (250mL Bag) 250 ML 15 ML IV (05:41)
[2023-06-10] MEDS: Piperacil/Tazobactam 3.375 GM in 0.9% Normal Saline (50mL MB+) 50 ML IV (05:41)
[2023-06-10] MEDS: 0.9% Saline Lock 10 ML Syringe IV (05:41)
[2023-06-10] MEDS: Insulin Lispro 100 UNIT/ML INSULN.PEN SC ×2 (05:46→12:07)
[2023-06-10 06:28] LABS: Absolute Lymphocyte Count 2.11 X10^3/uL (0.83-4.51); Absolute Neutrophil Count 2.8 X10^3/uL (2.0-7.7); Basophil# 0.02 X10^3/uL; Basophil% 0.4 % (0-1); Eosinophil# 0.17 X10^3/uL; Eosinophils% 3.1 % (0-5); Hematocrit 44.5 % (40-54); Hemoglobin 14.3 g/dL (13.0-16.5); Lymphocyte # 2.11 X10^3/ul (0.83-4.51); Lymphocyte % 38.7 % (19-41); Mean Corp Hgb Conc 32.1 g/dL (32-36); Mean Corpuscular Hgb 27.7 pg (27.0-32.0); Mean Corpuscular Volume 86.1 fL (80-94); Mean Platelet Vol. 9.7 fl (6.2-12.0); Monocyte% 5.5 % (0-10); NRBC Flagged by Analyzer 0 % (0-5); Neutrophil # 2.83 X10^3/uL (2.7-7.7); Neutrophil % 51.9 % (47-70); Platelet Count 196 K/mm3 (150-450); RBC Distribution Width CV 13.7 % (11.6-14.6); RBC Distribution Width SD 43.5 fl (35.1-43.9); Red Blood Count 5.17 M/mm3 (4.6-6.2); White Blood Count 5.5 K/mm3 (4.4-11.0)
[2023-06-10 07:04] LABS: ALB/GLOB Ratio 0.8 RATIO (0.9-2.4); AST(SGOT) 32 U/L (15-37); Alanine Aminotransfer ALT/SGPT 52 U/L (16-61); Albumin, Serum 3.1 g/dL (3.2-5.0); Alkaline Phosphatase 93 U/L (45-117); Anion Gap 6 (5-15); BUN 12 mg/dL (7-18); BUN/Creat Ratio 18.8 RATIO (10-20); Calcium,Total 8.4 mg/dL (8.5-10.1); Chloride 107 mmol/L (98-107); Creatinine, Serum 0.64 mg/dL (0.70-1.30); EST Glomerular Filtration Rate 144 mL/min (>60); Est Glom Filt Rate - Afr Amer 174 mL/min (>60); Estimated Creatinine Clearance 120.76 ml/min; Glucose 272 mg/dL (74-106); Magnesium 2.2 mg/dL (1.6-2.6); Phosphorus 2.7 mg/dL (2.5-4.9); Potassium 3.8 mmol/L (3.5-5.1); Protein, Total 7.1 g/dL (6.4-8.2); Sodium Level 139 mmol/L (136-145)
[2023-06-10 07:05] LABS: Bedside Glucose 245 mg/dL (74-106)
--- NOTE | 2023-06-10 07:46 | PN.HOSP_ITS ---
Reason for Visit Reason for Visit: Diagnoses Tinea pedis (06/10/23) Cellulitis of left lower limb (06/10/23) Hyperglycemia, unspecified (06/10/23) Other specified health status (06/10/23) Subjective Subjective Patient is a 48-year-old gentleman admitted with redness and warmth involving the left lower extremity. Had apparently been seen in the emergency department prescribed Keflex and Bactrim. Symptoms recurred 3 days after completion of in itial course Objective Data Objective Data Vital Signs: Vital Signs Temp Pulse Resp BP Pulse Ox O2 Del Method FiO2 97.2 F L 70 12 146/91 H 97 Room Air 06/10/23 02:02 06/10/23 05:20 06/10/23 05:20 06/10/23 02:02 06/10/23 05:20 06/10/23 02:02 06/10/23 05:20 Oxygen Delivery Method Room Air Weight: 164.1 kg Body Mass Index (BMI) 62.1 Intake & Output: Intake and Output for Last 24 Hours 06/08/23 06/09/23 06/10/23 23:59 23:59 23:59 Intake Total 2039 Balance 2039 Lab / Micro Data 06/10/23 05:40 06/10/23 05:40 Labs: Laboratory Results - last 24 hr 06/09/23 21:25: WBC 5.8, RBC 5.62, Hgb 15.2, Hct 47.9, MCV 85.2, MCH 27.0, MCHC 31.7 L, RDW Std Deviation 42.7, RDW Coeff of Antonia 13.8, Plt Count 203, MPV 9.7, Immature Gran % (Auto) 0.700, Neut % (Auto) 53.7, Lymph % (Auto) 36.6, [place] % (Auto) 5.9, Eos % (Auto) 2.6, Baso % (Auto) 0.5, Absolute Neuts (auto) 3.1, Absolute Lymphs (auto) 2.12, Nucleated RBC % 0, Sodium 136, Potassium 3.9, Chloride 105, Carbon Dioxide 24.0, Anion Gap 7, BUN 13, Creatinine 0.80, Estim Creat Clear Calc 100.36, Est GFR (MDRD) Af Amer 134, Est GFR (MDRD) Non-Af 111, BUN/Creatinine Ratio 16.3, Glucose 333 H, Hemoglobin A1c 11.9 H, Lactic Acid 1.7, Calcium 8.8, Total Bilirubin 0.70, AST 32, ALT 57, Alkaline Phosphatase 105, Total Protein 7.4, Albumin 3.3, Globulin 4.1, Albumin/Globulin Ratio 0.8 L, Lipase 19 06/09/23 21:52: Urine Color Yellow, Urine Clarity Clear, Urine pH 6.0, Ur Specific [place] 1.020, Urine Protein 15 H, Urine Glucose (UA) 1000 H, Urine Ketones 150 A*, Urine Occult Blood Negative, Urine Nitrite Negative, Urine Bilirubin Negative, Urine Urobilinogen Normal, Ur Leukocyte Esterase Negative, Urine RBC 0 SEEN, Urine WBC 0 SEEN, Ur Squamous Epith Cells 0-5 SEEN, Urine Bacteria 0 SEEN, Urine Mucus 0 SEEN 06/10/23 05:40: WBC 5.5, RBC 5.17, Hgb 14.3, Hct 44.5, MCV 86.1, MCH 27.7, MCHC 32.1, RDW Std Deviation 43.5, RDW Coeff of Antonia 13.7, Plt Count 196, MPV 9.7, Immature Gran % (Auto) 0.400, Neut % (Auto) 51.9, Lymph % (Auto) 38.7, [place] % (Auto) 5.5, Eos % (Auto) 3.1, Baso % (Auto) 0.4, Absolute Neuts (auto) 2.8, Absolute Lymphs (auto) 2.11, Nucleated RBC % 0, Sodium 139, Potassium 3.8, Chloride 107, Carbon Dioxide 26.0, Anion Gap 6, BUN 12, Creatinine 0.64 L, Estim Creat Clear Calc 120.76, Est GFR (MDRD) Af Amer 174, Est GFR (MDRD) Non-Af 144, BUN/Creatinine Ratio 18.8, Glucose 272 H, Calcium 8.4 L, Phosphorus 2.7, Magnesium 2.2, Total Bilirubin 0.80, AST 32, ALT 52, Alkaline Phosphatase 93, Total Protein 7.1, Albumin 3.1 L, Globulin 4.0, Albumin/Globulin Ratio 0.8 L 06/10/23 05:43: POC Glucose 245 H Physical Exam Narrative GENERAL: cooperative HEENT: Atraumatic; normocephalic EYES; Anicteric, Normal Conjunctiva NECK; supple, normal thyroid, RESPIRATORY: Diminished to auscultation CARDIOVASCULAR: Regular S1 S2, GI: soft, normoactive bowel sounds, : No Renal angle tenderness; EXTREMITIES: Slight area of erythema on the medial aspect of the left lower extremity MUSCULOSKELETAL: no muscle wasting NEURO: Awake; no lateralizing signs. SKIN: No Rash PSYCH; Flat affect Assessment & Plan Assessment/Plan (1) Cellulitis of left lower extremity: PLAN: Plan Patient is a 48-year-old gentleman admitted with redness and warmth involving the left lower extremity. Had apparently been seen in the emergency department prescribed Keflex and Bactrim. Symptoms recurred 3 days after completion of initial course 1. Left lower extremity cellulitis with outpatient treatment failure -This is recurrent patient has had issues since 2019 with about 6 total episodes of cellulitis in this left lower extremity. Recently completed outpatient treatment with Keflex and Bactrim. Zosyn and vancomycin initiated on admission consult placed to infectious disease. Patient was seen in consultation by Dr. Choi recommended discharge with Keflex for 7 days and patient to continue to wear compression stockings 2. Tinea pedis -Topical nystatin twice daily -Could be nidus for infection 3. Diabetes mellitus type 2 uncontrolled with hyperglycemia Did continue with patient home medication regimen in addition to Accu-Cheks before meals and at bedtime with sliding scale coverage 4. Hypertension - Blood pressure controlled, home medications continued with dose adjustment as needed 5. Dyslipidemia -Patient is on statin therapy, continued at home dose 6. GERD -Continue home PPI 7. PATRICIA -Continue home CPAP at 16 cmH2O nocturnally 8. COPD -Former smoker -Continue home inhalers 9. Class III obesity with BMI of 62 ? Complicating care weight loss advised 10. Depression ? Patient is on bupropion did continue 11. DVT prophylaxis ? On Lovenox 40 mg twice daily. Time spent in the patient's overall evaluation,decision-making process, review of diagnostic data, adjustment of management, discussion with other providers, nursing nursing and ancillary staff involved in patient's care documentation, 35 minutes Charges/Coding Visit Charges Inpatient E&M: 36609 Subs Hosp L2
[2023-06-10] MEDS: Nystatin/Triamcin Cream Tube 1 APPLIC TOPICAL (07:51)
[2023-06-10] MEDS: Losartan Potassium 50 MG Tablet PO (07:52)
[2023-06-10] MEDS: Meloxicam 15 MG Tablet PO (07:52)
[2023-06-10] MEDS: Aspirin 81 MG TAB.CHEW PO (07:52)
[2023-06-10] MEDS: Empagliflozin 25 MG Tablet PO (07:52)
[2023-06-10] MEDS: Enoxaparin 40 MG/0.4 ML Syringe SC (07:52)
[2023-06-10 08:00] VITALS: BP 140/94; PULSE 81; RESP 18; TEMP 36.6; O2SAT 93
[2023-06-10] MEDS: Influenza Virus Vac Quad 23-24 60 MCG/0.5 ML SYRINGE IM (08:37)
[2023-06-10] MEDS: Pantoprazole Sodium 40 MG Tablet 80 MG PO (10:10)
[2023-06-10] MEDS: Vancomycin HCl 1,750 MG in 0.9% Normal Saline (500mL Bag) 500 ML 250 MG IV (10:11)
--- NOTE | 2023-06-10 10:16 | CON.PCM.ID_ITS ---
Assessment & Plan Assessment/Plan (1) Cellulitis of left lower extremity: PLAN: Much improved. No fever here, normal wbc. Sx rapidly improved. On vanc/zosyn, will narrow to cefazolin for non purulent cellulitis. Ok for home with 7 days po keflex 500mg tid. For prevention of recurrence, encouraged him to continue wear compression stockings, but I think the most important thing will be close glucose control. A1c 12 here. If recurrences become more frequent, next step would be to consider assisted suppressive amoxicillin. Will follow, thank you (2) Uncontrolled diabetes mellitus: HPI Consult Data Date of Consult: 06/10/23 HPI Narrative Reason for Consultation: cellulitis HPI Narrative: NETTA JARQUIN, is a 48 M with obesity, uncontrolled DM, prior vein stripping in LLE. Gets LLE cellulitis about twice a year. Developed pain, redness, swelling in L lower leg, seen in ED 05/20, given 2 weeks po bactrim and keflex. Sx went away quickly, but 2 days after finishing, had new fever, chills, n/v, and L lower leg redness/swelling/pain (started on 06/08). Came to ED, admitted on vanc/zosyn, feeling better, still some mild pain in leg. Works at a [employer], is on feet a lot, is consistent with wearing compression stockings. Full ROS Performed and neg except as noted above. [facility] Medical History Anxiety Asthma COPD (chronic obstructive pulmonary disease) COPD (chronic obstructive pulmonary disease) CPAP (continuous positive airway pressure) dependence Depression Diabetes Diabetes GERD (gastroesophageal reflux disease) Hearing loss, left Hypertension Hypertension Migraines Myocardial infarct PATRICIA (obstructive sleep apnea) Sleep apnea Home Medications Jardiance 25 mg PO DAILY 06/29/21 [History Last Taken Unknown] omeprazole 80 mg PO DAILY REFLUX 06/29/21 [History Last Taken 01/20/23] aspirin 81 mg capsule 81 mg PO DAILY 12/28/21 [History Last Taken Unknown] losartan 50 mg tablet 50 mg PO DAILY 12/28/21 [History Last Taken Unknown] albuterol sulfate 2.5 mg/3 mL (0.083 %) solution for nebulization 2.5 mg inhalation Q4H PRN shortness of breath or wheezing 01/20/23 [History Last Taken Unknown] bupropion HCl 150 mg tablet,12 hr sustained-release 150 mg PO DAILY 01/20/23 [History Last Taken 01/20/23] dulaglutide 0.75 mg/0.5 mL subcutaneous pen injector (Trulicity) 0.75 mg subcut QWEEK 01/20/23 [History Last Taken 06/03/23] epinephrine 0.3 mg/0.3 mL injection, auto-injector 0.3 ml IM PRN allergic reaction 01/20/23 [History Last Taken Unknown] meloxicam 15 mg tablet 15 mg PO DAILY 01/20/23 [History Last Taken 01/20/23] rosuvastatin 20 mg tablet 20 mg PO DAILY 01/20/23 [History Last Taken Unknown] albuterol sulfate 90 mcg/actuation aerosol inhaler (Ventolin HFA) 2 puff inhal ation Q4H PRN shortness of breath or wheezing 06/10/23 [History Last Taken Unknown] fluticasone fur. 200 mcg-umeclid 62.5 mcg-vilant 25 mcg inhalat.powder (Trelegy Ellipta) 1 inh inhalation DAILY 06/10/23 [History Last Taken Unknown] insulin glargine 100 unit/mL (3 mL) subcutaneous pen (Lantus Solostar U-100 Insulin) 22 unit subcut QHS 06/10/23 [History Last Taken Unknown] Allergy/AdvReac Type Severity Reaction Status Date / Time azithromycin [From Zithromax] Allergy Swelling Verified 06/09/23 17:53 bee venom protein (honey bee) Allergy Hives Verified 06/09/23 17:53 codeine Allergy Swelling Verified 06/09/23 17:53 Latex, Natural Rubber Allergy Anaphylaxis Verified 06/09/23 17:53 ondansetron [From Zofran] Allergy Vomiting Verified 06/09/23 17:53 Family History (Updated 06/10/23 @ 00:[address] Slime Hernandez DO) Other Diabetes Hypertension Surgical History History of carpal tunnel repair History of cholecystectomy History of meniscectomy of right knee Social History (Updated 06/10/23 @ 00:[address] Slime Hernandez DO) household members: spouse Smoking Status: Former smoker alcohol intake: never substance use type: does not use Physical Exam Const alert, oriented x3 and no apparent distress General Appearance: cooperative HEENT normocephalic and head/scalp atraumatic Eyes PERRL Neck supple and No nodes Resp normal air movement and clear to auscultation bilaterally Cardio regular rate and regular rhythm GI soft to palpation, non-tender and non-distended Extremity Extremity Narrative: mild BLE swelling Skin Skin Narrative: Faint erythema around L lower leg Neuro CN's II-XII intact bilaterally Lab / Micro Data Attestation: I reviewed the patient's lab results. 06/10/23 05:40 06/10/23 05:40 Labs: Laboratory Results - last 24 hr 06/09/23 21:25: WBC 5.8, RBC 5.62, Hgb 15.2, Hct 47.9, MCV 85.2, MCH 27.0, MCHC 31.7 L, RDW Std Deviation 42.7, RDW Coeff of Antonia 13.8, Plt Count 203, MPV 9.7, Immature Gran % (Auto) 0.700, Neut % (Auto) 53.7, Lymph % (Auto) 36.6, [place] % (Auto) 5.9, Eos % (Auto) 2.6, Baso % (Auto) 0.5, Absolute Neuts (auto) 3.1, Absolute Lymphs (auto) 2.12, Nucleated RBC % 0, Sodium 136, Potassium 3.9, Chloride 105, Carbon Dioxide 24.0, Anion Gap 7, BUN 13, Creatinine 0.80, Estim Creat Clear Calc 100.36, Est GFR (MDRD) Af Amer 134, Est GFR (MDRD) Non-Af 111, BUN/Creatinine Ratio 16.3, Glucose 333 H, Hemoglobin A1c 11.9 H, Lactic Acid 1.7, Calcium 8.8, Total Bilirubin 0.70, AST 32, ALT 57, Alkaline Phosphatase 105, Total Protein 7.4, Albumin 3.3, Globulin 4.1, Albumin/Globulin Ratio 0.8 L, Lipase 19 06/09/23 21:52: Urine Color Yellow, Urine Clarity Clear, Urine pH 6.0, Ur Specific [place] 1.020, Urine Protein 15 H, Urine Glucose (UA) 1000 H, Urine Ketones 150 A*, Urine Occult Blood Negative, Urine Nitrite Negative, Urine Bilirubin Negative, Urine Urobilinogen Normal, Ur Leukocyte Esterase Negative, Urine RBC 0 SEEN, Urine WBC 0 SEEN, Ur Squamous Epith Cells 0-5 SEEN, Urine Bacteria 0 SEEN, Urine Mucus 0 SEEN 06/10/23 05:40: WBC 5.5, RBC 5.17, Hgb 14.3, Hct 44.5, MCV 86.1, MCH 27.7, MCHC 32.1, RDW Std Deviation 43.5, RDW Coeff of Antonia 13.7, Plt Count 196, MPV 9.7, Immature Gran % (Auto) 0.400, Neut % (Auto) 51.9, Lymph % (Auto) 38.7, [place] % (Auto) 5.5, Eos % (Auto) 3.1, Baso % (Auto) 0.4, Absolute Neuts (auto) 2.8, Absolute Lymphs (auto) 2.11, Nucleated RBC % 0, Sodium 139, Potassium 3.8, Chloride 107, Carbon Dioxide 26.0, Anion Gap 6, BUN 12, Creatinine 0.64 L, Estim Creat Clear Calc 120.76, Est GFR (MDRD) Af Amer 174, Est GFR (MDRD) Non-Af 144, BUN/Creatinine Ratio 18.8, Glucose 272 H, Calcium 8.4 L, Phosphorus 2.7, Mag nesium 2.2, Total Bilirubin 0.80, AST 32, ALT 52, Alkaline Phosphatase 93, Total Protein 7.1, Albumin 3.1 L, Globulin 4.0, Albumin/Globulin Ratio 0.8 L 06/10/23 05:43: POC Glucose 245 H
--- NOTE | 2023-06-10 10:50 | PCM.DC.SUM ---
Providers Date of Admission: 06/10/23 Date of Discharge: 06/10/23 Primary Care Physician: Dr. Linwood Jules MD Consultations 06/10/23 09:49 Consult: Infectious Disease Routine Consulting Provider: Julien Choi Reason for Consult: recurrent cellulitis EMERGENT Consult: No MD Notified: Yes Date Notified: 06/10/23 Time Notified: 09:54 Method of Notification: Verbal Reason For Visit: LLE CELLULITIS Diagnosis Discharge Diagnosis (1) Cellulitis of left lower extremity: Status: Acute Code(s): L03.116 - Cellulitis of left lower limb Plan Patient is a 48-year-old gentleman admitted with redness and warmth involving the left lower extremity. Had apparently been seen in the emergency department prescribed Keflex and Bactrim. Symptoms recurred 3 days after completion of initial course 1. Left lower extremity cellulitis with outpatient treatment failure -This is recurrent patient has had issues since 2019 with about 6 total episodes of cellulitis in this left lower extremity. Recently completed outpatient treatment with Keflex and Bactrim. Zosyn and vancomycin initiated on admission consult placed to infectious disease. Patient was seen in consultation by Dr. Choi recommended discharge with Keflex for 7 days and patient to continue to wear compression stockings 2. Tinea pedis -Topical nystatin twice daily -Could be nidus for infection 3. Diabetes mellitus type 2 uncontrolled with hyperglycemia Did continue with patient home medication regimen in addition to Accu-Cheks before meals and at bedtime with sliding scale coverage 4. Hypertension - Blood pressure controlled, home medications continued with dose adjustment as needed 5. Dyslipidemia -Patient is on statin therapy, continued at home dose 6. GERD -Continue home PPI 7. PATRICIA -Continue home CPAP at 16 cmH2O nocturnally 8. COPD -Former smoker -Continue home inhalers 9. Class III obesity with BMI of 62 ? Complicating care weight loss advised 10. Depression ? Patient is on bupropion did continue 11. DVT prophylaxis ? On Lovenox 40 mg twice daily. Time spent in the patient's overall evaluation,decision-making process, review of diagnostic data, adjustment of management, discussion with other providers, nursing nursing and ancillary staff involved in patient's care documentation, 35 minutes Medications at Discharge Home Medications Jardiance 25 mg PO DAILY 06/29/21 omeprazole 80 mg PO DAILY REFLUX 06/29/21 aspirin 81 mg capsule 81 mg PO DAILY 12/28/21 losartan 50 mg tablet 50 mg PO DAILY 12/28/21 albuterol sulfate 2.5 mg/3 mL (0.083 %) solution for nebulization 2.5 mg inhalation Q4H PRN shortness of breath or wheezing 01/20/23 bupropion HCl 150 mg tablet,12 hr sustained-release 150 mg PO DAILY 01/20/23 dulaglutide 0.75 mg/0.5 mL subcutaneous pen injector (Trulicity) 0.75 mg subcut QWEEK 01/20/23 epinephrine 0.3 mg/0.3 mL injection, auto-injector 0.3 ml IM PRN allergic reaction 01/20/23 meloxicam 15 mg tablet 15 mg PO DAILY 01/20/23 rosuvastatin 20 mg tablet 20 mg PO DAILY 01/20/23 albuterol sulfate 90 mcg/actuation aerosol inhaler (Ventolin HFA) 2 puff inhalation Q4H PRN shortness of breath or wheezing 06/10/23 cephalexin 500 mg capsule 500 mg PO TID 7 days #21 caps 06/10/23 fluticasone fur. 200 mcg-umeclid 62.5 mcg-vilant 25 mcg inhalat.powder (Trelegy Ellipta) 1 inh inhalation DAILY 06/10/23 insulin glargine 100 unit/mL (3 mL) subcutaneous pen (Lantus Solostar U-100 Insulin) 22 unit subcut QHS 06/10/23 Hospital Course Summary of Care Provided Minutes Spent on Discharge: 35 Physical Exam Narrative GENERAL: cooperative HEENT: Atraumatic; normocephalic EYES; Anicteric, Normal Conjunctiva NECK; supple, normal thyroid, RESPIRATORY: Diminished to auscultation CARDIOVASCULAR: Regular S1 S2, GI: soft, normoactive bowel sounds, : No Renal angle tenderness; EXTREMITIES: Slight area of erythema on the medial aspect of the left lower extremity MUSCULOSKELETAL: no muscle wasting NEURO: Awake; no lateralizing signs. SKIN: No Rash PSYCH; Flat affect Weight / BMI Weight Weight: 164.1 kg Body Mass Index (BMI) 62.1 ABG / Lab / Microbiology Data 06/10/23 05:40 06/10/23 05:40 Laboratory: Laboratory Results - last 24 hr 06/09/23 21:25: WBC 5.8, RBC 5.62, Hgb 15.2, Hct 47.9, MCV 85.2, MCH 27.0, MCHC 31.7 L, RDW Std Deviation 42.7, RDW Coeff of Antonia 13.8, Plt Count 203, MPV 9.7, Immature Gran % (Auto) 0.700, Neut % (Auto) 53.7, Lymph % (Auto) 36.6, [place] % (Auto) 5.9, Eos % (Auto) 2.6, Baso % (Auto) 0.5, Absolute Neuts (auto) 3.1, Absolute Lymphs (auto) 2.12, Nucleated RBC % 0, Sodium 136, Potassium 3.9, Chloride 105, Carbon Dioxide 24.0, Anion Gap 7, BUN 13, Creatinine 0.80, Estim Creat Clear Calc 100.36, Est GFR (MDRD) Af Amer 134, Est GFR (MDRD) Non-Af 111, BUN/Creatinine Ratio 16.3, Glucose 333 H, Hemoglobin A1c 11.9 H, Lactic Acid 1.7, Calcium 8.8, Total Bilirubin 0.70, AST 32, ALT 57, Alkaline Phosphatase 105, Total Protein 7.4, Albumin 3.3, Globulin 4.1, Albumin/Globulin Ratio 0.8 L, Lipase 19 06/09/23 21:52: Urine Color Yellow, Urine Clarity Clear, Urine pH 6.0, Ur Specific [place] 1.020, Urine Protein 15 H, Urine Glucose (UA) 1000 H, Urine Ketones 150 A*, Urine Occult Blood Negative, Urine Nitrite Negative, Urine Bilirubin Negative, Urine Urobilinogen Normal, Ur Leukocyte Esterase Negative, Urine RBC 0 SEEN, Urine WBC 0 SEEN, Ur Squamous Epith Cells 0-5 SEEN, Urine Bacteria 0 SEEN, Urine Mucus 0 SEEN 06/10/23 05:40: WBC 5.5, RBC 5.17, Hgb 14.3, Hct 44.5, MCV 86.1, MCH 27.7, MCHC 32.1, RDW Std Deviation 43.5, RDW Coeff of Antonia 13.7, Plt Count 196, MPV 9.7, Immature Gran % (Auto) 0.400, Neut % (Auto) 51.9, Lymph % (Auto) 38.7, [place] % (Auto) 5.5, Eos % (Auto) 3.1, Baso % (Auto) 0.4, Absolute Neuts (auto) 2.8, Absolute Lymphs (auto) 2.11, Nucleated RBC % 0, Sodium 139, Potassium 3.8, Chloride 107, Carbon Dioxide 26.0, Anion Gap 6, BUN 12, Creatinine 0.64 L, Estim Creat Clear Calc 120.76, Est GFR (MDRD) Af Amer 174, Est GFR (MDRD) Non-Af 144, BUN/Creatinine Ratio 18.8, Glucose 272 H, Calcium 8.4 L, Phosphorus 2.7, Magnesium 2.2, Total Bilirubin 0.80, AST 32, ALT 52, Alkaline Phosphatase 93, Total Protein 7.1, Albumin 3.1 L, Globulin 4.0, Albumin/Globulin Ratio 0.8 L 06/10/23 05:43: POC Glucose 245 H D/C Instructions Discharge Diet: 1800 Calorie Control Diet Discharge Activity: Return to Normal Activity Call your doctor if you observe: Fever of 101 or Higher, Shortness of breath, Fainting spells and Chest pain Meaningful Use Info Meaningful Use Diagnoses (Choose all that apply): None applicable Discharge Plan Admission Admit Date/Time: 06/10/23 00:31 Attending Provider: Arnol Perez Primary Care Provider: Linwood Jules Consulting Providers: Slime Hernandez; Julien Choi Discharge Orders/Prescriptions Prescriptions: New cephalexin 500 mg capsule 500 mg PO TID 7 Days Qty: 21 0RF Continued Jardiance 25 mg PO DAILY omeprazole 80 mg PO DAILY losartan 50 mg Tablet 50 mg PO DAILY aspirin 81 mg Capsule 81 mg PO DAILY albuterol sulfate 2.5 mg /3 mL (0.083 %) solution for nebulization 2.5 mg inhalation Q4H PRN (Reason: shortness of breath or wheezing) Patient Comments: USE 1 VIAL IN NEBULIZER EVERY 4 HOURS NEEDED FOR WHEEZING OR SHORTNESS OF BREATH. USE OVER 5 TO 15 MINUTES. Trulicity 0.75 mg/0.5 mL pen injector 0.75 mg SUBCUT QWEEK bupropion HCl 150 mg tablet sustained-release 12 hr 150 mg PO DAILY epinephrine 0.3 mg/0.3 mL auto-injector 0.3 ml IM PRN Patient Comments: INJECT CONTENTS OF 1 PEN NEEDED FOR ALLERGIC REACTION. meloxicam 15 mg tablet 15 mg PO DAILY rosuvastatin 20 mg tablet 20 mg PO DAILY Patient Comments: TAKE 1 TABLET BY MOUTH ONCE DAILY Denise Ellipta 200-62.5-25 mcg blister with device 1 inh INHALATION DAILY Patient Comments: INHALE 1 PUFF ONCE DAILY insulin glargine [Lantus Solostar U-100 Insulin] 100 unit/mL (3 mL) insulin pen 22 unit SUBCUT QHS Patient Comments: INJECT 22 UNITS SUBCUTANEOULSY ONCE DAILY AT BEDTIME albuterol sulfate [Ventolin HFA] 90 mcg/actuation HFA aerosol inhaler 2 puff INHALATION Q4H PRN (Reason: shortness of breath or wheezing) Patient Comments: pt states my pulmonary doctor says take 4 puffs Rx Instructions: INHALE 2 PUFFS BY MOUTH EVERY 4 HOURS NEEDED FOR WHEEZING OR SHORTNESS OF BREATH Referrals / Follow Up: Julien Choi MD [Med Staff - Active Staff] - Within 1 Month Linwood Jules MD [Primary Care Provider] - Within 2 Weeks Disposition Disposition (needs filled in before D/C Order can be placed): Home, Self Care Charges/Coding Visit Charges Inpatient E&M: 98707 Disch Hosp >30min
--- NOTE | 2023-06-10 11:50 | CASEMGMT ---
Addendum entered by Brenda Es 06/10/23 16:27: Living Will/HCPOA: No and No. Pt. declines to receive information about ADs. Addendum entered by Brenda Es 06/10/23 12:29: Pt. denies need for HHC. Addendum entered by Brenda Suggs 06/10/23 12:27: SYLVAIN ABARCA informed SW that pt. would like assistance with applying for insurance. informed SYLVAIN ABARCA that she contacted [employer] and they will be in contact with pt. to assist him with the insurance process. SYLVAIN ABACRA in to pt. room and informed him of this information. Pt. voices understanding. Pt's nurse is also in the room and pt. informed us that if he does need to take time off work he will need that written down by the physician. Pt's nurse informed pt. that we would be able to assist him with getting paperwork for that if needed. Pt. does not voice any further questions/concerns. Original Note: SYLVAIN ABARCA Assessment: Face to Face with pt for initial transition planning/care coordination assessment and to inform him that he also has an order in for discharge. SYLVAIN ABARCA introduced self and role at [facility], pt voices understanding and consents to assessment. Pt's is also present. Pt is A&O x4 and answers all questions appropriately at this time. Care providers, pharmacy, and demographics verified/updated. Admitting Dx: LLE Cellulitis PCP: Jorge A Specialists: Cash (Pulmonology), Rock (Cardiology) Preferred Pharmacy:[facility] (for this admission) SYLVAIN ABARCA did barragan check for discharge medication and was informed by [facility] that the cost is $15.45. I informed pt. of this and he states he can afford this. Insurance: Self -pay (pt. and his ask if we can assist them with applying for insurance. I informed them I will notify the of this request). Prescription Benefit: No LNOK: Fay Brown () Living Arrangements: Pt lives with in a 2 story home that is no FFSU. Pt. states no steps to enter and 12 steps w/railing to inside the house to second floor. Prior to this admission pt. states he took 1 step at a time and had no difficulty ambulating these steps. Pt. states he is I in all ADLs/IADLs. Transportation: DME:BSC, Cane, Crutches, hand held shower, walker, CPAP, nebulizer, Pulse ox, and glucometer/supplies. HHC/SNF: Denies any previous SNF/HHC Pt states no concerns with going home at time of dc. Pt. states he would just need paperwork to show his employer that he has been hospitalized and if he is to be off work for few days, he will need paperwork for this as well. SYLVAIN ABARCA informed pt. that he does have an order in for D/C and that the D/C paperwork will include the dates that he was admitted here and asked if he is okay providing his employer with this documentation. Pt. states he is fine with providing his employer with his D/C paperwork. Pt. denies having any further discharge needs at this time. Pt states no further concerns/needs. CM to follow. Advised pt to ask CM if any further question/concerns/needs arise, voices understanding. Pt Goal: Home Plan: Home with family support and follow-up plans in place.
--- NOTE | 2023-06-10 12:21 | PHA.DC.MC.R ---
Pharmacy [facility] Pharmacy Service has performed discharge medication reconciliation and counseling for this patient. The patient was counseled on the following discharge medications and changes in medications for homegoing were reviewed. 1. KEFLEX The Reason for Use, instructions for use, and potential side effects were reviewed for all new medications. The patient's questions regarding all of their medications were answered. The patient was able to verbally demonstrate an understanding of their discharge medications. The patient's discharge medication list was reviewed for discrepancies and discrepancies were resolved. The patient was counselled by Demetrio Gomez PharmD Candidate Medications at Discharge Home Medications Jardiance 25 mg PO DAILY 06/29/21 omeprazole 80 mg PO DAILY REFLUX 06/29/21 aspirin 81 mg capsule 81 mg PO DAILY 12/28/21 losartan 50 mg tablet 50 mg PO DAILY 12/28/21 albuterol sulfate 2.5 mg/3 mL (0.083 %) solution for nebulization 2.5 mg inhalation Q4H PRN shortness of breath or wheezing 01/20/23 bupropion HCl 150 mg tablet,12 hr sustained-release 150 mg PO DAILY 01/20/23 dulaglutide 0.75 mg/0.5 mL subcutaneous pen injector (Trulicity) 0.75 mg subcut QWEEK 01/20/23 epinephrine 0.3 mg/0.3 mL injection, auto-injector 0.3 ml IM PRN allergic reaction 01/20/23 meloxicam 15 mg tablet 15 mg PO DAILY 01/20/23 rosuvastatin 20 mg tablet 20 mg PO DAILY 01/20/23 albuterol sulfate 90 mcg/actuation aerosol inhaler (Ventolin HFA) 2 puff inhalation Q4H PRN shortness of breath or wheezing 06/10/23 cephalexin 500 mg capsule 500 mg PO TID 7 days #21 caps 06/10/23 fluticasone fur. 200 mcg-umeclid 62.5 mcg-vilant 25 mcg inhalat.powder (Trelegy Ellipta) 1 inh inhalation DAILY 06/10/23 insulin glargine 100 unit/mL (3 mL) subcutaneous pen (Lantus Solostar U-100 Insulin) 22 unit subcut QHS 06/10/23
[2023-06-10 12:29] LABS: Bedside Glucose 263 mg/dL (74-106)
[2023-06-10 15:00] VITALS: BP 138/91; PULSE 86; RESP 18; TEMP 36.2; O2SAT 96
== END 2023-06-10 15:16 | disposition home or self-care (01) | DRG 603 ==
LOC: ED 20:34 → MS3 06-10 01:44
PROVIDERS: Admitting Provider Internal Medicine; Emergency Provider Emergency Medicine; PCP Internal Medicine; Visit Provider Internal Medicine
DX: L03.116 Cellulitis of left lower limb (principal); Z68.44 Body mass index [BMI] 60.0-69.9, adult; E11.65 Type 2 diabetes mellitus with hyperglycemia; J44.9 Chronic obstructive pulmonary disease, unspecified; E66.01 Morbid (severe) obesity due to excess calories; Z79.4 Long term (current) use of insulin; I10 Essential (primary) hypertension; F32.A Depression, unspecified; E78.5 Hyperlipidemia, unspecified; G47.33 Obstructive sleep apnea (adult) (pediatric); K21.9 Gastro-esophageal reflux disease without esophagitis; Z79.51 Long term (current) use of inhaled steroids; Z87.891 Personal history of nicotine dependence; Z79.84 Long term (current) use of oral hypoglycemic drugs; Z23 Encounter for immunization; Z79.899 Other long term (current) drug therapy; Z79.82 Long term (current) use of aspirin
CPT/HCPCS: 80053; 81001; 82962; 83036; 83605; 83690; 83735; 84100; 85025; 87040; 94660; 94668; 99252; 99285; J7040; J7050; 90686; A4216; G0463

== ENCOUNTER 2023-10-20 10:28 | Emergency (ER) | payer OTHER, SELFPAY ==
[2023-10-20 10:29] VITALS: BP 214/118; PULSE 88; RESP 16; O2SAT 94
[2023-10-20 10:30] VITALS: BP 165/109; PULSE 115; RESP 16; TEMP 35.7; O2SAT 97; BMI 58.1
--- NOTE | 2023-10-20 10:47 | EX.ED.DYSGE1 ---
HPI History of Present Illness Chief Complaint: Nausea/Vomiting/Diarrhea Detail of Chief Complaint: Vomiting and diarrhea and left leg redness Informant: patient Narrative Narrative: Patient started yesterday with vomiting and diarrhea. He thinks he is thrown up about 3 times and has had about 5 watery stools. Denies sick contacts. Has had low-grade fever. Patient also noticed increased redness to his left leg. He has history of cellulitis. Patient has had some chills. Denies abdominal pain. Denies significant cough. He does describe some body aches. [facility] Medical History Anxiety Asthma COPD (chronic obstructive pulmonary disease) COPD (chronic obstructive pulmonary disease) CPAP (continuous positive airway pressure) dependence Depression Diabetes Diabetes GERD (gastroesophageal reflux disease) Hearing loss, left Hypertension Hypertension Migraines Myocardial infarct PATRICIA (obstructive sleep apnea) Sleep apnea Home Medications Jardiance 25 mg PO DAILY 06/29/21 [History Last Taken Unknown] omeprazole 80 mg PO DAILY REFLUX 06/29/21 [History Last Taken 01/20/23] aspirin 81 mg capsule 81 mg PO DAILY 12/28/21 [History Last Taken Unknown] losartan 50 mg tablet 50 mg PO DAILY 12/28/21 [History Last Taken Unknown] albuterol sulfate 2.5 mg/3 mL (0.083 %) solution for nebulization 2.5 mg inhalation Q4H PRN shortness of breath or wheezing 01/20/23 [History Last Taken Unknown] bupropion HCl 150 mg tablet,12 hr sustained-release 150 mg PO DAILY 01/20/23 [History Last Taken 01/20/23] dulaglutide 0.75 mg/0.5 mL subcutaneous pen injector (Trulicity) 0.75 mg subcut QWEEK 01/20/23 [History Last Taken 06/03/23] epinephrine 0.3 mg/0.3 mL injection, auto-injector 0.3 ml IM PRN allergic reaction 01/20/23 [History Last Taken Unknown] meloxicam 15 mg tablet 15 mg PO DAILY 01/20/23 [History Last Taken 01/20/23] rosuvastatin 20 mg tablet 20 mg PO DAILY 01/20/23 [History Last Taken Unknown] albuterol sulfate 90 mcg/actuation aerosol inhaler (Ventolin HFA) 2 puff inhalation Q4H PRN shortness of breath or wheezing 06/10/23 [History Last Taken Unknown] cephalexin 500 mg capsule 500 mg PO TID 7 days #21 caps 06/10/23 [Rx Last Taken Unknown] fluticasone fur. 200 mcg-umeclid 62.5 mcg-vilant 25 mcg inhalat.powder (Trelegy Ellipta) 1 inh inhalation DAILY 06/10/23 [History Last Taken Unknown] insulin glargine 100 unit/mL (3 mL) subcutaneous pen (Lantus Solostar U-100 Insulin) 22 unit subcut QHS 06/10/23 [History Last Taken Unknown] doxycycline monohydrate 100 mg capsule 100 mg PO BID #20 CAPSULES 10/20/23 [Rx Last Taken Unknown] metoclopramide HCl 10 mg tablet (Reglan) 10 mg PO Q6H PRN nausea and vomiting #10 tabs 10/20/23 [Rx Last Taken Unknown] Allergy/AdvReac Type Severity Reaction Status Date / Time azithromycin [From Zithromax] Allergy Swelling Verified 10/20/23 10:31 bee venom protein (honey bee) Allergy Hives Verified 10/20/23 10:31 codeine Allergy Swelling Verified 10/20/23 10:31 Latex, Natural Rubber Allergy Anaphylaxis Verified 10/20/23 10:31 ondansetron [From Zofran] Allergy Vomiting Verified 10/20/23 10:31 Family History (Updated 06/10/23 @ 00:[address] Slime Hernandez DO) Other Diabetes Hypertension Surgical History History of carpal tunnel repair History of cholecystectomy History of meniscectomy of right knee Social History (Updated 06/10/23 @ 00:[address] Slime Hernandez DO) household members: spouse Smoking Status: Former smoker alcohol intake: never substance use type: does not use ROS ROS ED Review of Systems ROS Unobtainable: other Constitutional Constitutional ED: Reports lethargy; Denies chills, fever(s), sweats or weight loss Eyes Eyes: Denies blurry vision, change in vision or diplopia ENT ENT ED: Denies rhinorrhea or sore throat Cardiovascular Cardiovascular: Denies chest pain, orthopnea or racing heartbeat Respiratory/Chest Respiratory/Chest: Denies cough, dyspnea, dyspnea on exertion, orthopnea or sputum Gastrointestinal Gastrointestinal: Reports diarrhea, nausea and vomiting; Denies abdominal pain Genitourinary Genitourinary ED: Denies dysuria, hematuria or urinary frequency Musculoskeletal Musculoskeletal: Denies arthralgias, back pain, myalgias or neck pain Integumentary Reports rash; Denies abscess or Abrasions Neurologic Neurologic: Denies headache(s) or weakness Psychiatric Psychiatric: Denies anxiety, depression or suicidal thoughts Endocrine Endocrinology: Denies polydipsia, polyphagia or polyuria Hematologic/Lymphatic Hematologic/Lymphatic: Denies easy bleeding, easy bruising or lymphadenopathy Allergic/Immunologic Allergic/Immunologic ED: Denies mouth swelling, tongue swelling or urticaria EXAM Physical Exam Const Vital Signs: 10/20/23 10:30 10/20/23 10:29 10/20/23 11:33 Temperature 96.3 F L Temperature Source Temporal Pulse Rate 115 H 88 88 Respiratory Rate 16 16 Blood Pressure 165/109 H 214/118 H 156/94 H Blood Pressure Mean 127 150 114 Pulse Ox 97 94 Oxygen Delivery Method Room Air Room Air Room Air Positive well nourished and well developed General Appearance ED: well developed and NAD HEENT Reports TM's clear and moist mucous membranes normocephalic and atraumatic; Negative for trauma or tenderness Tympanic Membrane ED: Yes TM's clear Eyes PERRL and EOMs intact bilaterally General Eye ED: Negative for pale conjunctiva or scleral icterus Neck no lymphadenopathy, supple and no JVD General: Negative for tenderness Chest Wall inspection of chest normal and palpation of chest normal Chest: Negative for tenderness Resp normal respiratory effort and clear to auscultation bilaterally Effort and Inspection: Negative for respiratory distress or pain with movement Auscultation: Negative for rhonchi, wheezes or diminished lung sounds Cardio regular rate, regular rhythm, S1 normal heart sound, S2 normal heart sound and no murmurs Peripheral Pulses: pulses 2+ throughout GI normal to inspection, nondistended, normoactive bowel sounds, soft to palpation, non-tender, non-distended and no masses Back/Spine no CVA tenderness and no thoracic nor lumbar tenderness Extremity normal to inspection Extremity Narrative: Mild cellulitic changes left lower extremity from posterior calf to distal third anterior tibia. No evidence of abscess. Neurovascular intact. No fluctuant areas General Extremety ED: Negative for edema General Extremity: Negative for edema Neuro oriented x3, CN's II-XII intact bilaterally, no sensory deficits noted and gait normal Sensorium / Orientation: awake, alert, oriented to person, oriented to place and oriented to time Motor Exam: strength 5/5 throughout and strength abnormal Psych mental status grossly normal Skin no rashes or lesions noted and no wounds MDM MDM MDM Narrative Medical decision making narrative: Patient presents with vomiting and diarrhea clinically I suspect a viral gastroenteritis. 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 Patient also concerned about cellulitis to his left leg which has had multiple times in the past. IV line established. CBC with differential white count of 8.2 with hemoglobin 15 and platelet count of 175. Chemistries unremarkable. Lactate normal at 1.5. I did give him a liter normal same fluid bolus. Patient also received clindamycin 900 mg IV. I did outline the area of erythema on his left leg with marker. I feel he can be treated as an outpatient. Will treat with clindamycin. Will give a prescription for Zofran. He is instructed to take Imodium as needed for the diarrhea. Patient advised to return if increasing pain or redness or swelling or condition should worsen anyway. Lab Data Attestation: I reviewed the patient's lab results. Labs: Laboratory Results - last 24 hr 10/20/23 11:11 WBC 8.2 RBC 5.47 Hgb 15.0 Hct 44.9 MCV 82.1 MCH 27.4 MCHC 33.4 RDW Std Deviation 40.4 RDW Coeff of Antonia 13.6 Plt Count 175 MPV 9.8 Immature Gran % (Auto) 0.500 Neut % (Auto) 71.6 H Lymph % (Auto) 22.6 [place] % (Auto) 4.4 Eos % (Auto) 0.7 Baso % (Auto) 0.2 Absolute Neuts (auto) 5.9 Absolute Lymphs (auto) 1.85 Nucleated RBC % 0 Sodium 134 L Potassium 3.7 Chloride 100 Carbon Dioxide 28.0 Anion Gap 6 BUN 10 Creatinine 0.86 Estim Creat Clear Calc 152.30 Est GFR (MDRD) Af Amer 123 Est GFR (MDRD) Non-Af 101 BUN/Creatinine Ratio 11.6 Glucose 345 H Lactic Acid 1.5 Calcium 9.3 Discharge Plan Triage Chief Complaint: Nausea/Vomiting/Diarrhea ED Provider: Ungur,Remus Dx/Rx/DC Orders Clinical Impression: Left leg cellulitis, Viral gastroenteritis Instructions: ED Cellulitis, ED Gastroenteritis, Viral (Adult) Prescriptions: New metoclopramide HCl [Reglan] 10 mg tablet 10 mg PO Q6H PRN (Reason: nausea and vomiting) Qty: 10 0RF doxycycline monohydrate 100 mg capsule 100 mg PO BID Qty: 20 0RF No Action Jardiance 25 mg PO DAILY omeprazole 80 mg PO DAILY losartan 50 mg Tablet 50 mg PO DAILY aspirin 81 mg Capsule 81 mg PO DAILY albuterol sulfate 2.5 mg /3 mL (0.083 %) solution for nebulization 2.5 mg inhalation Q4H PRN (Reason: shortness of breath or wheezing) Patient Comments: USE 1 VIAL IN NEBULIZER EVERY 4 HOURS NEEDED FOR WHEEZING OR SHORTNESS OF BREATH. USE OVER 5 TO 15 MINUTES. Trulicity 0.75 mg/0.5 mL pen injector 0.75 mg SUBCUT QWEEK bupropion HCl 150 mg tablet sustained-release 12 hr 150 mg PO DAILY epinephrine 0.3 mg/0.3 mL auto-injector 0.3 ml IM PRN Patient Comments: INJECT CONTENTS OF 1 PEN NEEDED FOR ALLERGIC REACTION. meloxicam 15 mg tablet 15 mg PO DAILY rosuvastatin 20 mg tablet 20 mg PO DAILY Patient Comments: TAKE 1 TABLET BY MOUTH ONCE DAILY Trelegy Ellipta 200-62.5-25 mcg blister with device 1 inh INHALATION DAILY Patient Comments: INHALE 1 PUFF ONCE DAILY insulin glargine [Lantus Solostar U-100 Insulin] 100 unit/mL (3 mL) insulin pen 22 unit SUBCUT QHS Patient Comments: INJECT 22 UNITS SUBCUTANEOULSY ONCE DAILY AT BEDTIME albuterol sulfate [Ventolin HFA] 90 mcg/actuation HFA aerosol inhaler 2 puff INHALATION Q4H PRN (Reason: shortness of breath or wheezing) Patient Comments: pt states my pulmonary doctor says take 4 puffs Rx Instructions: INHALE 2 PUFFS BY MOUTH EVERY 4 HOURS NEEDED FOR WHEEZING OR SHORTNESS OF BREATH cephalexin 500 mg capsule 500 mg PO TID 7 Days Qty: 21 0RF Primary Care Provider: Linwood Jules Referrals: Linwood Jules MD [Primary Care Provider] - 3-5 Days Disposition Disposition: Home, Self Care
[2023-10-20] MEDS: 0.9% Normal Saline (1000mL) 1,000 ML 1000 ML IV (11:06)
[2023-10-20] MEDS: Metoclopramide 10 MG/2 ML Vial IV (11:08)
[2023-10-20 11:24] LABS: Absolute Lymphocyte Count 1.85 X10^3/uL (0.83-4.51); Absolute Neutrophil Count 5.9 X10^3/uL (2.0-7.7); Basophil# 0.02 X10^3/uL; Basophil% 0.2 % (0-1); Eosinophil# 0.06 X10^3/uL; Eosinophils% 0.7 % (0-5); Hematocrit 44.9 % (40-54); Lymphocyte # 1.85 X10^3/ul (0.83-4.51); Lymphocyte % 22.6 % (19-41); Mean Corp Hgb Conc 33.4 g/dL (32-36); Mean Corpuscular Hgb 27.4 pg (27.0-32.0); Mean Corpuscular Volume 82.1 fL (80-94); Mean Platelet Vol. 9.8 fl (6.2-12.0); Monocyte# 0.36 X10^3/uL; Monocyte% 4.4 % (0-10); NRBC Flagged by Analyzer 0 % (0-5); Neutrophil # 5.87 X10^3/uL (2.7-7.7); Neutrophil % 71.6 % (47-70); Platelet Count 175 K/mm3 (150-450); RBC Distribution Width CV 13.6 % (11.6-14.6); RBC Distribution Width SD 40.4 fl (35.1-43.9); Red Blood Count 5.47 M/mm3 (4.6-6.2); White Blood Count 8.2 K/mm3 (4.4-11.0)
[2023-10-20] MEDS: Clindamycin 900 MG/50 ML BAG 75 MG IV (11:24)
[2023-10-20 11:33] VITALS: BP 156/94; PULSE 88
[2023-10-20 11:44] LABS: Anion Gap 6 (5-15); BUN 10 mg/dL (7-18); BUN/Creat Ratio 11.6 RATIO (10-20); Calcium,Total 9.3 mg/dL (8.5-10.1); Chloride 100 mmol/L (98-107); Creatinine, Serum 0.86 mg/dL (0.70-1.30); EST Glomerular Filtration Rate 101 mL/min (>60); Est Glom Filt Rate - Afr Amer 123 mL/min (>60); Glucose 345 mg/dL (74-106); Potassium 3.7 mmol/L (3.5-5.1); Sodium Level 134 mmol/L (136-145)
[2023-10-20 11:48] LABS: Lactic Acid 1.5 mmol/L (0.4-1.9)
[2023-10-20 13:00] VITALS: BP 160/84; PULSE 100; RESP 16; O2SAT 98
[2023-10-20 13:13] VITALS: BP 160/84; PULSE 100; RESP 16; TEMP 36.6; O2SAT 97
== END 2023-10-20 13:20 | disposition home or self-care (01) ==
PROVIDERS: Emergency Provider Emergency Medicine; PCP Internal Medicine; Visit Provider Emergency Medicine
DX: A08.4 Viral intestinal infection, unspecified (principal); J44.9 Chronic obstructive pulmonary disease, unspecified; E11.9 Type 2 diabetes mellitus without complications; Z79.4 Long term (current) use of insulin; L03.116 Cellulitis of left lower limb; Z87.891 Personal history of nicotine dependence; R50.9 Fever, unspecified; I10 Essential (primary) hypertension; G47.33 Obstructive sleep apnea (adult) (pediatric); Z99.89 Dependence on other enabling machines and devices; I25.2 Old myocardial infarction; K21.9 Gastro-esophageal reflux disease without esophagitis; Z79.899 Other long term (current) drug therapy; Z79.82 Long term (current) use of aspirin; F32.A Depression, unspecified; Z79.85 Long-term (current) use of injectable non-insulin antidiabetic drugs; Z79.51 Long term (current) use of inhaled steroids; Z90.49 Acquired absence of other specified parts of digestive tract
CPT/HCPCS: 80048; 83605; 85025; 87631; 99283

== ENCOUNTER 2024-01-07 15:22 | Emergency (ER) | payer OTHER, SELFPAY ==
[2024-01-07] VITALS (11 sets, daily range): BP systolic 164–184; BP diastolic 73–101; PULSE 87–123; RESP 16–26; TEMP 35.9–36.8; O2SAT 92–98; BMI 60.5
--- NOTE | 2024-01-07 15:44 | EDS_ITS ---
<Statement entered by Airam Corral MD - 01/07/24 20:08> I have personally performed a face to face assessment of the patient and have reviewed the VIVIANA Note. Patient presents with 1 week history of cough, congestion, wheezing. He has a history of asthma. He does report multiple ill contacts with similar symptoms. Patient sitting upright in bed no acute distress. My initial exam is after his initial DuoNeb treatment. Head and neck examination unremarkable. Heart is slightly tachycardic and regular. Lung sounds are slightly tight but good air movement bilaterally. Abdomen is soft and nontender. Neuro exam reveals no focal deficit. Patient did receive aerosols here along with IV Solu-Medrol. Chest x-ray per my interpretation was no obvious infiltrate. Radiology interpretation reviewed and agrees. EKG is sinus tach at 102 with no obvious ischemia. CBC was a white count of 8.4 with 65% neutrophils. Chemistry studies significant for glucose of 454. He states his glucose usually runs between 250 and 350. His troponin is normal at 3. Patient did receive a liter of IV fluids as well as 10 units of subcu insulin. His blood sugar is currently down to 351. Given the patient's hyperglycemia we will not give him prednisone at home, but he will use his inhaler regularly. If his breathing worsens he is to return for possible steroid use. We did ask him to keep a journal of his blood sugar readings to take to his next appointment as he may require different medication for better glucose control. HPI History of Present Illness Chief Complaint: Cough Narrative Narrative: 48-year-old male with past medical history of HTN, DM2, COPD has had 1 week of cough and intermittent wheezing. He became short of breath while out today so he presented to the emergency room. He has a rescue albuterol inhaler and a nebulizer at home but did not have access to them. He states he has had low- grade fever and chills. 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 He denies smoking. [facility] Medical History Anxiety Asthma COPD (chronic obstructive pulmonary disease) COPD (chronic obstructive pulmonary disease) CPAP (continuous positive airway pressure) dependence Depression Diabetes Diabetes GERD (gastroesophageal reflux disease) Hearing loss, left Hypertension Hypertension Migraines Myocardial infarct PATRICIA (obstructive sleep apnea) Sleep apnea Home Medications ?Medication ?Instructions ?Recorded ?Last Taken ?Type Jardiance 25 mg PO DAILY 06/29/21 Unknown History omeprazole 80 mg PO DAILY REFLUX 06/29/21 01/20/23 History aspirin 81 mg capsule 81 mg PO DAILY 12/28/21 Unknown History losartan 50 mg tablet 50 mg PO DAILY 12/28/21 Unknown History albuterol sulfate 2.5 mg/3 mL 2.5 mg inhalation Q4H PRN 01/20/23 Unknown History (0.083 %) solution for nebulization shortness of breath or wheezing bupropion HCl 150 mg tablet,12 hr 150 mg PO DAILY 01/20/23 01/20/23 History sustained-release dulaglutide 0.75 mg/0.5 mL 0.75 mg subcut QWEEK 01/20/23 06/03/23 History subcutaneous pen injector (Trulicity) epinephrine 0.3 mg/0.3 mL 0.3 ml IM PRN allergic reaction 01/20/23 Unknown History injection, auto-injector meloxicam 15 mg tablet 15 mg PO DAILY 01/20/23 01/20/23 History rosuvastatin 20 mg tablet 20 mg PO DAILY 01/20/23 Unknown History albuterol sulfate 90 mcg/actuation 2 puff inhalation Q4H PRN 06/10/23 Unknown History aerosol inhaler (Ventolin HFA) shortness of breath or wheezing cephalexin 500 mg capsule 500 mg PO TID 7 days #21 caps 06/10/23 Unknown Rx fluticasone fur. 200 mcg-umeclid 1 inh inhalation DAILY 06/10/23 Unknown History 62.5 mcg-vilant 25 mcg inhalat.powder (Trelegy Ellipta) insulin glargine 100 unit/mL (3 22 unit subcut QHS 06/10/23 Unknown History mL) subcutaneous pen (Lantus Solostar U-100 Insulin) doxycycline monohydrate 100 mg 100 mg PO BID #20 CAPSULES 10/20/23 Unknown Rx capsule metoclopramide HCl 10 mg tablet 10 mg PO Q6H PRN nausea and 10/20/23 Unknown Rx (Reglan) vomiting #10 tabs Allergy/AdvReac Type Severity Reaction Status Date / Time azithromycin (From Zithromax) Allergy Swelling Verified 01/07/24 15:38 bee venom protein (honey bee) Allergy Hives Verified 01/07/24 15:38 codeine Allergy Swelling Verified 01/07/24 15:38 Latex, Natural Rubber Allergy Anaphylaxis Verified 01/07/24 15:38 ondansetron (From Zofran) Allergy Vomiting Verified 01/07/24 15:38 Family History Other Diabetes Hypertension Surgical History History of meniscectomy of right knee History of carpal tunnel repair History of cholecystectomy Social History household members: spouse Smoking Status: Former smoker alcohol intake: never substance use type: does not use ROS ROS ED ROS Narrative Constitutional: Negative for fever, chills, malaise. CVS: Positive for chest tightness. Respiratory: Positive for shortness of breath, cough. GI: Negative for abdominal pain, nausea, vomiting. EXAM Physical Exam Narrative Exam Narrative: CONST: Patient sitting in no acute distress. EYES: Normal inspection. NECK: Normal inspection. RESP: Lung sounds diminished with faint expiratory wheezing throughout. SKIN: Color normal, no rash, warm, dry, intact. EXTREMITIES: Normal appearance, no pedal edema. NEURO: Alert and answering questions appropriately. PSYCH: Normal affect. Const Vital Signs: 01/07/24 15:24 01/07/24 15:26 01/07/24 15:27 Temperature 97.2 F L 97.1 F L Temperature Source Temporal Temporal Pulse Rate 123 H 123 H 117 H Respiratory Rate 26 H 24 H 24 H Respiratory Effort Respiratory Depth Respiratory Pattern Blood Pressure 164/101 H 164/101 H Blood Pressure Mean 122 122 Pulse Ox 95 96 97 Oxygen Delivery Method Room Air Room Air Room Air 01/07/24 15:40 01/07/24 15:44 01/07/24 16:00 Temperature 97.4 F L Temperature Source Temporal Pulse Rate 107 H 92 Respiratory Rate 24 H 18 Respiratory Effort Short of Breath Respiratory Depth Normal Respiratory Pattern Normal Blood Pressure 177/92 H Blood Pressure Mean 120 Pulse Ox 97 Oxygen Delivery Method Room Air Room Air 01/07/24 16:00 01/07/24 16:33 01/07/24 17:32 Temperature Temperature Source Pulse Rate 110 H 87 Respiratory Rate 16 16 Respiratory Effort Respiratory Depth Respiratory Pattern Normal Blood Pressure 184/95 H Blood Pressure Mean 124 Pulse Ox 98 95 Oxygen Delivery Method Room Air Room Air 01/07/24 17:51 Temperature 98.3 F Temperature Source Oral Pulse Rate 99 Respiratory Rate 16 Respiratory Effort Respiratory Depth Respiratory Pattern Blood Pressure 169/73 H Blood Pressure Mean 105 Pulse Ox 92 Oxygen Delivery Method Room Air MDM MDM MDM Narrative Medical decision making narrative: History gathered from: Patient and spouse Differential: Viral URI, asthma exacerbation, pneumonia, ACS Patient has had 1 week of URI symptoms with worsening asthma symptoms x1 day. He was not at home so was unable to use his nebulizer. He appears well and nontoxic. He was initially hypertensive and tachycardic otherwise stable vitals and 95% on room air. Lung sounds are tight with slight wheezing throughout. This significantly improved after a DuoNeb and IV Solu-Medrol. Blood work notable for hyperglycemia at 454 with no DKA. His glucose typically runs between 250?350. He was given a liter of fluid and 10 units of subcutaneous insulin and repeat blood sugars is 350 around his baseline. EKG is nonischemic and troponin is 3; CXR shows no acute process. I suspect a viral URI causing an asthma exacerbation and recommended he use his nebulizer at home. With his baseline hyperglycemia I do not think prednisone is indicated and I recommended follow-up with his primary care doctor for better glucose management. Return precautions were discussed and he was discharged in stable condition. Lab Data Attestation: I reviewed the patient's lab results. Labs: Laboratory Results - last 24 hr 01/07/24 14:25 WBC 8.4 RBC 5.59 Hgb 15.0 Hct 45.9 MCV 82.1 MCH 26.8 L MCHC 32.7 RDW Std Deviation 39.8 RDW Coeff of Antonia 13.4 Plt Count 197 MPV 9.7 Immature Gran % (Auto) 0.500 Neut % (Auto) 65.2 Lymph % (Auto) 28.3 [place] % (Auto) 3.8 Eos % (Auto) 2.0 Baso % (Auto) 0.2 Absolute Neuts (auto) 5.5 Absolute Lymphs (auto) 2.38 Nucleated RBC % 0 Sodium 134 L Potassium 3.5 Chloride 101 Carbon Dioxide 21.0 Anion Gap 12 BUN 10 Creatinine 1.05 Estim Creat Clear Calc 127.99 Est GFR (MDRD) Af Amer 98 Est GFR (MDRD) Non-Af 81 BUN/Creatinine Ratio 9.5 L Glucose 454 H* Calcium 9.4 Troponin I High Sens 3 Radiography Diagnostic Testing: Clinical Impression(s) from Imaging Studies Chest X-Ray 01/07/24 16:36 IMPRESSION: Mild hyperinflation. No acute cardiopulmonary pathology. Electronically Signed: Rakesh Mirza MD at 17:31 EDT Reading Location ID and State: [address] [place] [address] Tel , Service support , ED attending interpretation of 2-view chest x-ray shows normal heart size, no acute infiltrate. EKG Initial EKG: Attestation: I personally reviewed and interpreted this EKG as follows: Interpretation: No Acute Injury Pattern and Sinus Tachycardia Comments: Sinus tachycardia at 102 bpm Nonspecific T wave abnormality, no acute ischemic changes Prior EKG tracings: available for review Prior: Unchanged Discharge Plan Triage Chief Complaint: Cough ED Midlevel Provider: Lindsey Stewart ED Provider: Airam Corral Dx/Rx/DC Orders Clinical Impression: Viral URI, Asthma exacerbation, Hyperglycemia due to diabetes mellitus Instructions: COPD Diabetes, Asthma and COPD Prescriptions: No Action Jardiance 25 mg PO DAILY omeprazole 80 mg PO DAILY losartan 50 mg Tablet 50 mg PO DAILY aspirin 81 mg Capsule 81 mg PO DAILY albuterol sulfate 2.5 mg /3 mL (0.083 %) solution for nebulization 2.5 mg inhalation Q4H PRN (Reason: shortness of breath or wheezing) Patient Comments: USE 1 VIAL IN NEBULIZER EVERY 4 HOURS NEEDED FOR WHEEZING OR SHORTNESS OF BREATH. USE OVER 5 TO 15 MINUTES. Trulicity 0.75 mg/0.5 mL pen injector 0.75 mg SUBCUT QWEEK bupropion HCl 150 mg tablet sustained-release 12 hr 150 mg PO DAILY epinephrine 0.3 mg/0.3 mL auto-injector 0.3 ml IM PRN Patient Comments: INJECT CONTENTS OF 1 PEN NEEDED FOR ALLERGIC REACTION. meloxicam 15 mg tablet 15 mg PO DAILY rosuvastatin 20 mg tablet 20 mg PO DAILY Patient Comments: TAKE 1 TABLET BY MOUTH ONCE DAILY Trelegy Ellipta 200-62.5-25 mcg blister with device 1 inh INHALATION DAILY Patient Comments: INHALE 1 PUFF ONCE DAILY insulin glargine [Lantus Solostar U-100 Insulin] 100 unit/mL (3 mL) insulin pen 22 unit SUBCUT QHS Patient Comments: INJECT 22 UNITS SUBCUTANEOULSY ONCE DAILY AT BEDTIME albuterol sulfate [Ventolin HFA] 90 mcg/actuation HFA aerosol inhaler 2 puff INHALATION Q4H PRN (Reason: shortness of breath or wheezing) Patient Comments: pt states my pulmonary doctor says take 4 puffs Rx Instructions: INHALE 2 PUFFS BY MOUTH EVERY 4 HOURS NEEDED FOR WHEEZING OR SHORTNESS OF BREATH cephalexin 500 mg capsule 500 mg PO TID 7 Days Qty: 21 0RF metoclopramide HCl [Reglan] 10 mg tablet 10 mg PO Q6H PRN (Reason: nausea and vomiting) Qty: 10 0RF doxycycline monohydrate 100 mg capsule 100 mg PO BID Qty: 20 0RF Primary Care Provider: Linwood Jules Referrals: Linwood Jules MD [Primary Care Provider] - Activity Restrictions/Additional Instructions: He most likely have a viral illness that is flaring up your asthma. Use your nebulizer treatments every 4-6 hours at home as needed and follow-up with your primary care doctor. You need to discuss with them how to better manage your blood sugars as they were around 450 here. It looks like you typically run between 250?350. Print Language: [place]arag[place]
[2024-01-07] MEDS: Ipratropium/Albuterol Sulfate 3 ML AMPUL.NEB INHALATION ×2 (15:53→17:30)
--- NOTE | 2024-01-07 16:14 | EKG12_ITS ---
Test Reason : COUGH Blood Pressure : / mmHG Vent. Rate : 102 BPM Atrial Rate : 102 BPM P-R Int : 156 ms QRS Dur : 088 ms QT Int : 386 ms P-R-T Axes : 052 051 016 degrees QTc Int : 503 ms Sinus tachycardia Nonspecific T wave abnormality Abnormal ECG Confirmed by GANESH COVINGTON, BRANDON ([id number]), assistant editor JESS FIGUEROA ([id number]) on 01/10/2024 9:48:18 AM Referred By: Confirmed By:SOSA ANDERSEN MD
[2024-01-07] MEDS: MethylPREDNISolone 125 MG/2 ML Vial IV (16:31)
--- NOTE | 2024-01-07 16:36 | RAD_ITS ---
STUDY: X-RAY CHEST REASON FOR EXAM: Male, 48 years old. cough TECHNIQUE: PA and lateral COMPARISON: May 20, 2023 FINDINGS: Lungs are mildly hyperinflated and there is mild chronic interstitial thickening in the lower lobes.. There is no demonstrated pleural abnormality. Normal size heart. Normal mediastinum and julianne. Normal visualized pulmonary arteries. Normal visualized aortic arch and descending thoracic aorta. Dorsal spine demonstrates degenerative change. Normal visualized ribs, clavicles, and shoulders. There is no demonstrated abnormality of the visualized soft tissue structures of the upper abdomen. RAD/Chest PA and Lateral IMPRESSION: Mild hyperinflation. No acute cardiopulmonary pathology. Electronically Signed: Rakesh Mirza MD at 17:31 EDT ,
[2024-01-07 16:38] LABS: Absolute Lymphocyte Count 2.38 X10^3/uL (0.83-4.51); Absolute Neutrophil Count 5.5 X10^3/uL (2.0-7.7); Basophil# 0.02 X10^3/uL; Basophil% 0.2 % (0-1); Eosinophil# 0.17 X10^3/uL; Hematocrit 45.9 % (40-54); Lymphocyte # 2.38 X10^3/ul (0.83-4.51); Lymphocyte % 28.3 % (19-41); Mean Corp Hgb Conc 32.7 g/dL (32-36); Mean Corpuscular Hgb 26.8 pg (27.0-32.0); Mean Corpuscular Volume 82.1 fL (80-94); Mean Platelet Vol. 9.7 fl (6.2-12.0); Monocyte# 0.32 X10^3/uL; Monocyte% 3.8 % (0-10); NRBC Flagged by Analyzer 0 % (0-5); Neutrophil # 5.49 X10^3/uL (2.7-7.7); Neutrophil % 65.2 % (47-70); Platelet Count 197 K/mm3 (150-450); RBC Distribution Width CV 13.4 % (11.6-14.6); RBC Distribution Width SD 39.8 fl (35.1-43.9); Red Blood Count 5.59 M/mm3 (4.6-6.2); White Blood Count 8.4 K/mm3 (4.4-11.0)
[2024-01-07 17:38] LABS: Anion Gap 12 (5-15); BUN 10 mg/dL (7-18); BUN/Creat Ratio 9.5 RATIO (10-20); Calcium,Total 9.4 mg/dL (8.5-10.1); Chloride 101 mmol/L (98-107); Creatinine, Serum 1.05 mg/dL (0.70-1.30); EST Glomerular Filtration Rate 81 mL/min (>60); Est Glom Filt Rate - Afr Amer 98 mL/min (>60); Estimated Creatinine Clearance 127.99 ml/min; Glucose 454 mg/dL (74-106); Potassium 3.5 mmol/L (3.5-5.1); Sodium Level 134 mmol/L (136-145); Troponin-I HS 3 pg/mL (3.0-78.0)
[2024-01-07] MEDS: 0.9% Normal Saline (1000mL) 1,000 ML 999 ML IV (17:48)
[2024-01-07] MEDS: Insulin Lispro 100 UNIT/ML INSULN.PEN 10 UNIT SC (17:49)
[2024-01-07 20:07] LABS: Bedside Glucose 351 mg/dL (74-106)
== END 2024-01-07 19:53 | disposition home or self-care (01) ==
PROVIDERS: Physician Assistant; Emergency Provider Emergency Medicine; PCP Internal Medicine; Visit Provider Emergency Medicine
DX: J06.9 Acute upper respiratory infection, unspecified (principal); E11.65 Type 2 diabetes mellitus with hyperglycemia; I10 Essential (primary) hypertension; J45.901 Unspecified asthma with (acute) exacerbation; Z87.891 Personal history of nicotine dependence; Z90.49 Acquired absence of other specified parts of digestive tract; G47.33 Obstructive sleep apnea (adult) (pediatric); K21.9 Gastro-esophageal reflux disease without esophagitis; Z99.89 Dependence on other enabling machines and devices
CPT/HCPCS: 71046; 80048; 82962; 84484; 85025; 93005; 94640; 99282; J7030; A4216

== ENCOUNTER 2024-10-30 10:33 | Emergency (ER) | payer OTHER, SELFPAY ==
[2024-10-30] VITALS (9 sets, daily range): BP systolic 136–179; BP diastolic 74–103; PULSE 101–123; RESP 19–26; TEMP 36.6–37.1; O2SAT 90–94; BMI 59.9
--- NOTE | 2024-10-30 10:57 | RAD_ITS ---
PROCEDURE: CHEST PA AND LATERAL 10/30/2024 REASON FOR EXAM: COUGH TECHNIQUE: Frontal and lateral views of the chest. COMPARISON: None FINDINGS: Cardiomediastinal silhouette is within normal limits. No focal consolidation, pleural effusion or sizable pneumothorax. RAD/Chest PA and Lateral IMPRESSION: No acute airspace abnormality. Reading Location: [facility]
--- NOTE | 2024-10-30 11:01 | EDS_ITS ---
HPI <DAR Lopez - Last Filed: 10/30/24 14:40> History of Present Illness Chief Complaint: Cough Narrative Narrative: 49-year-old male with PMH of HTN, DM2, asthma presents with 2 days of fever, chills, body aches, and cough. The cough can be dry or productive. He is wheezing and mildly short of breath but has no chest pain. He has a rescue albuterol inhaler and has a nebulizer machine but is missing the mouthpiece still has not used it. 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 Patient also states he has been out of his insulin for 3 days. He states his insurance was switched to care source [facility] months ago and he cannot see his primary care doctor and does not have a new one. He also is unable to afford his insulin at times. PFS <DAR Lopez - Last Filed: 10/30/24 14:40> [facility] Medical History Anxiety Asthma COPD (chronic obstructive pulmonary disease) COPD (chronic obstructive pulmonary disease) CPAP (continuous positive airway pressure) dependence Depression Diabetes Diabetes GERD (gastroesophageal reflux disease) Hearing loss, left Hypertension Hypertension Migraines Myocardial infarct PATRICIA (obstructive sleep apnea) Sleep apnea Home Medications ?Medication ?Instructions ?Recorded ?Last Taken ?Type Jardiance 25 mg PO DAILY 06/29/21 Unkn own History omeprazole 80 mg PO DAILY REFLUX 01/20/23 History aspirin 81 mg capsule 81 mg PO DAILY 12/28/21 Unkn own History losartan 50 mg tablet 50 mg PO DAILY 12/28/21 Unkn own History albuterol sulfate 2.5 mg/3 mL 2.5 mg inhalation Q4H ND N 01/20/23 Unknown History (0.083 %) solution for nebulization shortness of breat h or wheezing bupropion HCl 150 mg tablet,12 hr 150 mg PO DAILY 12/2501/20/23 History sustained-release dulaglutide 0.75 mg/0.5 mL 0.75 mg subcut QWEEK 06/03/23 History subcutaneous pen injector (Trulicity) epinephrine 0.3 mg/0.3 mL 0.3 ml IM PRN allergic react ion 01/20/23 Unknown History injection, auto-injector meloxicam 15 mg tablet 15 mg PO DAILY 01/20/23 06/2 03/17 History rosuvastatin 20 mg tablet 20 mg PO DAILY 01/20/23 Unkn own History albuterol sulfate 90 mcg/actuation 2 puff inhalation Q 4H PRN 06/10/23 Unknown History aerosol inhaler (Ventolin HFA) shortness of breath or wheezing fluticasone fur. 200 mcg-umeclid 1 inh inhalation TRESA Y 06/10/23 Unknown History 62.5 mcg-vilant 25 mcg inhalat.powder (Trelegy Ellipta) insulin glargine 100 unit/mL (3 22 unit subcut QHS Unknown History mL) subcutaneous pen (Lantus Solostar U-100 Insulin) doxycycline monohydrate 100 mg 100 mg PO BID #20 CAPSU LES 10/20/23 Unknown Rx capsule metoclopramide HCl 10 mg tablet 10 mg PO Q6H PRN nause a and 10/20/23 Unknown Rx (Reglan) vomiting #10 tabs cephalexin 500 mg capsule 500 mg PO TID 7 days #21 cap s 02/15/24 Unknown Rx sulfamethoxazole 800 1 tab PO BID #14 tabs Unknown Rx mg-trimethoprim 160 mg tablet albuterol sulfate 90 mcg/actuation 1 - 2 puff inhalati on Q4H PRN PRN 10/30/24 Unknown Rx aerosol inhaler (Ventolin HFA) Wheezing #1 device insulin glargine 100 unit/mL (3 22 unit (0.22 mL) subc ut QPM 30 10/30/24 Unknown Rx mL) subcutaneous pen (Lantus days #6.6 mL Solostar U-100 Insulin) insulin lispro 100 unit/mL 5 unit (0.05 mL) subcut TID 30 10/30/24 Unknown Rx subcutaneous pen (Humalog KwikPen days #4.5 mL (U-100) Insulin) Allergy/AdvReac Type Severity Reaction Status Date / Time azithromycin (From Zithromax) Allergy Swelling Verified 10/30/24 10:34 bee venom protein (honey bee) Allergy Hives Verified 10/30/24 10:34 codeine Allergy Swelling Verified 10/30/24 10:34 Latex, Natural Rubber Allergy Anaphylaxis Verified 10/30/24 10:34 ondansetron (From Zofran) Allergy Vomiting Verified 10/30/24 10:34 Family History Other Diabetes Hypertension Surgical History History of meniscectomy of right knee History of carpal tunnel repair History of cholecystectomy Social History household members: spouse Smoking Status: Former smoker alcohol intake: never substance use type: does not use ROS <DAR Lopez - Last Filed: 10/30/24 14:40> ROS ED ROS Narrative Constitutional: Positive for fever, chills, malaise. CVS: Negative for chest. Respiratory: Positive for shortness of breath, cough. GI: Positive for nausea, diarrhea. No vomiting or abdominal pain. EXAM <DAR Lopez - Last Filed: 10/30/24 14:40> Physical Exam Narrative Exam Narrative: CONST: Patient sitting in no acute distress. EYES: Normal inspection. NECK: Normal inspection. RESP: Frequent dry cough, mild expiratory wheeze throughout. No retractions or accessory muscle use. CVS: Regular rate and rhythm, no murmur, no gallop. SKIN: Color normal, no rash, warm, dry, intact. EXTREMITIES: Normal appearance, no pedal edema. NEURO: Alert and answering questions appropriately. PSYCH: Normal affect. Const Vital Signs: 10/30/24 10:34 10/30/24 11:10 10/30/24 11:11 Temperature 98.2 F Temperature Source Oral Pulse Rate 123 H 107 H Respiratory Rate 26 H 20 H Respiratory Effort Short of Breath Respiratory Depth Normal Respiratory Pattern Normal Tachypnea Blood Pressure 179/103 H Blood Pressure Mean 128 Pulse Ox 90 Oxygen Delivery Method Room Air Room Air 10/30/24 11:37 10/30/24 12:00 10/30/24 12:54 Temperature 98 F 98.4 F Temperature Source Oral Oral Pulse Rate 111 H 108 H 110 H Respiratory Rate 19 H 24 H 20 H Respiratory Effort Respiratory Depth Respiratory Pattern Normal Blood Pressure 157/90 H 157/91 H Blood Pressure Mean 112 113 Pulse Ox 93 93 Oxygen Delivery Method Room Air Room Air 10/30/24 13:00 10/30/24 14:00 10/30/24 14:53 Temperature 98.8 F 98.4 F 98.8 F Temperature Source Oral Oral Pulse Rate 105 H 102 H 101 H Respiratory Rate 21 H 20 H 19 H Respiratory Effort Respiratory Depth Respiratory Pattern Blood Pressure 136/76 H 144/74 H 142/81 H Blood Pressure Mean 96 97 101 Pulse Ox 92 93 94 Oxygen Delivery Method Room Air Room Air <Dr. Chevy Osorio DO - Last Filed: 10/30/24 15:35> Physical Exam Const Vital Signs: 10/30/24 10:34 10/30/24 11:10 10/30/24 11:11 Temperature 98.2 F Temperature Source Oral Pulse Rate 123 H 107 H Respiratory Rate 26 H 20 H Respiratory Effort Short of Breath Respiratory Depth Normal Respiratory Pattern Normal Tachypnea Blood Pressure 179/103 H Blood Pressure Mean 128 Pulse Ox 90 Oxygen Delivery Method Room Air Room Air 10/30/24 11:37 10/30/24 12:00 10/30/24 12:54 Temperature 98 F 98.4 F Temperature Source Oral Oral Pulse Rate 111 H 108 H 110 H Respiratory Rate 19 H 24 H 20 H Respiratory Effort Respiratory Depth Respiratory Pattern Normal Blood Pressure 157/90 H 157/91 H Blood Pressure Mean 112 113 Pulse Ox 93 93 Oxygen Delivery Method Room Air Room Air 10/30/24 13:00 10/30/24 14:00 10/30/24 14:53 Temperature 98.8 F 98.4 F 98.8 F Temperature Source Oral Oral Pulse Rate 105 H 102 H 101 H Respiratory Rate 21 H 20 H 19 H Respiratory Effort Respiratory Depth Respiratory Pattern Blood Pressure 136/76 H 144/74 H 142/81 H Blood Pressure Mean 96 97 101 Pulse Ox 92 93 94 Oxygen Delivery Method Room Air Room Air MDM <DAR Lopez - Last Filed: 10/30/24 14:40> [facility] MDM Narrative Medical decision making narrative: History gathered from: Patient and spouse Differential includes but not limited to viral illness, pneumonia, asthma exacerbation 49-year-old male with diabetes and asthma presents with 2 days of fever, chills, and upper respiratory symptoms. He said multiple sick contacts. He appears well and nontoxic. BP 179/103, HR 123, RR 26, 90% on room air, afebrile. He has a frequent dry cough and mild expiratory wheezing throughout. He is able to converse without significant distress. I ordered a DuoNeb. At this time I will avoid steroids because he has been out of his insulin for 3+ days and is likely hyperglycemic. CBC is unremarkable. Glucose is 426, CO2 19.8, anion gap 16. Sodium is 131. Renal function is normal at 8/0.73. Beta hydroxybutyrate is elevated at 2.3 but VBG shows normal pH so I do not think he is truly in DKA. He was given a total of 2 L IV fluids and 10 units of insulin. Regarding his upper respiratory symptoms he tested positive for influenza A. CXR is negative. After 2 DuoNeb treatments he is feeling much better and vital signs are stable. He slightly tachycardic after the treatment but it has improved from arrival. He is not hypoxic and is appropriate for outpatient management and I refilled an albuterol inhaler and discussed return precautions. He states he has not been taking his insulin for a while and did not know the doses. I called Rad and they state he has not filled Lantus 22 units at bedtime since November 2022. He is also on Trulicity once a week then. They have no record of fast acting insulin despite the patient telling me he was taking it before each meal in the past. I will start conservatively and prescribe Humalog 5 units before each meal and Lantus 22 units at bedtime. He has a glucometer and was instructed to check his sugars and follow-up with the [facility] clinic. I discussed return precautions and he was discharged in stable condition. Lab Data Attestation: I reviewed the patient's lab results. Labs: Laboratory Results - last 24 hr 10/30/24 10/30/24 10/30/24 11:20 12:00 14:51 WBC 5.4 RBC 5.29 Hgb 14.4 Hct 43.4 MCV 82.0 MCH 27.2 MCHC 33.2 RDW Std Deviation 40.6 RDW Coeff of Antonia 13.7 Plt Count 168 MPV 9.8 Immature Gran % (Auto) 1.700 H Neut % (Auto) 79.4 H Lymph % (Auto) 10.0 L [place] % (Auto) 8.3 Eos % (Auto) 0.2 Baso % (Auto) 0.4 Absolute Neuts (auto) 4.3 Absolute Lymphs (auto) 0.54 L Nucleated RBC % 0 Sodium 131 L Potassium 3.6 Chloride 95 L Carbon Dioxide 19.8 L Anion Gap 16 H BUN 8 Creatinine 0.73 Estim Creat Clear Calc 180.86 Est GFR (MDRD) Non-Af 113 BUN/Creatinine Ratio 10.5 Glucose 426 H Calcium 9.4 b-Hydroxybutyric mmol/L 2.3 POC Glucose 302 H ABG Data ABG results: ABG 10/30/24 13:25 Specimen Type TAMMIE Sample Site Not entered VBG pH 7.41 VBG pO2 56 H VBG HCO3 21 L VBG Total CO2 22 L VBG O2 Sat (Calc) 89 H VBG Base Excess -3 L POC Mix VBG pCO2 Pt Tmp 33.9 L O2 Delivery Device Not entered Radiography Diagnostic Testing: Clinical Impression(s) from Imaging Studies Chest X-Ray 10/30/24 10:57 IMPRESSION: No acute airspace abnormality. Reading Location: [facility] <Dr. Chevy Osorio, DO - Last Filed: 10/30/24 15:35> [facility] Lab Data Labs: Laboratory Results - last 24 hr 10/30/24 10/30/24 10/30/24 11:20 12:00 14:51 WBC 5.4 RBC 5.29 Hgb 14.4 Hct 43.4 MCV 82.0 MCH 27.2 MCHC 33.2 RDW Std Deviation 40.6 RDW Coeff of Antonia 13.7 Plt Count 168 MPV 9.8 Immature Gran % (Auto) 1.700 H Neut % (Auto) 79.4 H Lymph % (Auto) 10.0 L [place] % (Auto) 8.3 Eos % (Auto) 0.2 Baso % (Auto) 0.4 Absolute Neuts (auto) 4.3 Absolute Lymphs (auto) 0.54 L Nucleated RBC % 0 Sodium 131 L Potassium 3.6 Chloride 95 L Carbon Dioxide 19.8 L Anion Gap 16 H BUN 8 Creatinine 0.73 Estim Creat Clear Calc 180.86 Est GFR (MDRD) Non-Af 113 BUN/Creatinine Ratio 10.5 Glucose 426 H Calcium 9.4 b-Hydroxybutyric mmol/L 2.3 POC Glucose 302 H ABG Data ABG results: ABG 10/30/24 13:25 Specimen Type TAMMIE Sample Site Not entered VBG pH 7.41 VBG pO2 56 H VBG HCO3 21 L VBG Total CO2 22 L VBG O2 Sat (Calc) 89 H VBG Base Excess -3 L POC Mix VBG pCO2 Pt Tmp 33.9 L O2 Delivery Device Not entered Radiography Diagnostic Testing: Clinical Impression(s) from Imaging Studies Chest X-Ray 10/30/24 10:57 IMPRESSION: No acute airspace abnormality. Reading Location: [facility] Treatment and Re-Evaluation :: I have personally performed a face to face assessment of the patient and have reviewed the VIVIANA Note. I performed a substantive portion of the visit including all aspects of the following. My schaffer findings include: History: Patient presents with cough and congestion that has been getting worse over the past few days. Patient states he is around people who have been diagnosed with influenza A. Patient states several family members have been sick. Patient states he is coughing up some yellow-green sputum. Patient admits to some nausea, vomiting, and diarrhea. Patient admits to some heaviness in his chest. Exam: Patient has a BMI of 59.9. Vital signs are stable except for an elevated blood pressure of 179/103 and a tachycardia of 123. Patient is afebrile. Patient is in no acute distress. Oral mucosa is pink and moist. Neck is supple. Trachea is midline. There is no JVD. Heart was regular and tachycardic. Lungs show diffuse expiratory wheezing. There is good respiratory effort noted. Abdomen is soft. Bowel sounds are normal. There is no tenderness. Cranial nerves II through XII are intact. There are no focal motor or sensory deficits noted. There is no calf tenderness or edema. Medical Decision Making: Differential diagnosis includes pneumonia, bronchitis, viral upper respiratory infection, electrolyte abnormality, asthma exacerbation, and hyperglycemia. Chest x-ray will be obtained to assess for pneumonia or bronchitis. COVID-19, influenza, and RSV PCR will be obtained to assess for viral illness. CBC will be obtained to assess for leukocytosis and anemia. Basic metabolic profile will be obtained to assess for electrolyte abnormality and renal function. Patient was given a DuoNeb aerosol here. CBC was reviewed and was within normal limits. Basic metabolic profile was reviewed. Glucose was elevated at 426. CO2 is slightly low at 19.8 and anion gap is slightly elevated at 16. Because of this, serum patient acetone was ordered. It was slightly elevated at 2.3. VBG was also obtained and showed a pH of 7.41. I do not feel the patient is in DKA. COVID-19 PCR was reviewed and was negative. Influenza PCR was reviewed and was positive for influenza A and negative for influenza B. RSV PCR was reviewed and was negative. Patient was advised of findings. Patient was given prescription for refills of his long-acting insulin. Patient will be given prescription for Humalog. Patient was instructed to follow-up with his primary care physician in 5 to 7 days for further evaluation. Patient understood and was agreeable with plan. All questions were answered. Discharge Plan Triage Chief Complaint: Cough ED Midlevel Provider: Lindsey Stewart ED Provider: Chevy Osorio Dx/Rx/DC Orders Clinical Impression: Influenza A, Asthma, Diabetes mellitus with hyperglycemia, Hx of medication noncompliance Instructions: ED Diabetic Hyperglycemia, ED Influenza (Adult) Prescriptions: New albuterol sulfate [Ventolin HFA] 90 mcg/actuation HFA aerosol inhaler 1 - 2 puff inhalation Q4H PRN PRN (Reason: Wheezing) Qty: 1 0RF insulin glargine [Lantus Solostar U-100 Insulin] 100 unit/mL (3 mL) insulin pen 22 unit subcut QPM 30 Days Qty: 6.6 0RF insulin lispro [Humalog KwikPen Insulin] 100 unit/mL insulin pen 5 unit subcut TID 30 Days Qty: 4.5 0RF No Action cephalexin 500 mg capsule 500 mg PO TID 7 Days Qty: 21 0RF sulfamethoxazole-trimethoprim 800-160 mg tablet 1 tab PO BID Qty: 14 0RF Jardiance 25 mg PO DAILY omeprazole 80 mg PO DAILY losartan 50 mg Tablet 50 mg PO DAILY aspirin 81 mg Capsule 81 mg PO DAILY albuterol sulfate 2.5 mg /3 mL (0.083 %) solution for nebulization 2.5 mg inhalation Q4H PRN (Reason: shortness of breath or wheezing) Patient Comments: USE 1 VIAL IN NEBULIZER EVERY 4 HOURS NEEDED FOR WHEEZING OR SHORTNESS OF BREATH. USE OVER 5 TO 15 MINUTES. Trulicity 0.75 mg/0.5 mL pen injector 0.75 mg SUBCUT QWEEK bupropion HCl 150 mg tablet sustained-release 12 hr 150 mg PO DAILY epinephrine 0.3 mg/0.3 mL auto-injector 0.3 ml IM PRN Patient Comments: INJECT CONTENTS OF 1 PEN NEEDED FOR ALLERGIC REACTION. meloxicam 15 mg tablet 15 mg PO DAILY rosuvastatin 20 mg tablet 20 mg PO DAILY Patient Comments: TAKE 1 TABLET BY MOUTH ONCE DAILY Trelegy Ellipta 200-62.5-25 mcg blister with device 1 inh INHALATION DAILY Patient Comments: INHALE 1 PUFF ONCE DAILY insulin glargine [Lantus Solostar U-100 Insulin] 100 unit/mL (3 mL) insulin pen 22 unit SUBCUT QHS Patient Comments: INJECT 22 UNITS SUBCUTANEOULSY ONCE DAILY AT BEDTIME albuterol sulfate [Ventolin HFA] 90 mcg/actuation HFA aerosol inhaler 2 puff INHALATION Q4H PRN (Reason: shortness of breath or wheezing) Patient Comments: pt states my pulmonary doctor says take 4 puffs Rx Instructions: INHALE 2 PUFFS BY MOUTH EVERY 4 HOURS NEEDED FOR WHEEZING OR SHORTNESS OF BREATH metoclopramide HCl [Reglan] 10 mg tablet 10 mg PO Q6H PRN (Reason: nausea and vomiting) Qty: 10 0RF doxycycline monohydrate 100 mg capsule 100 mg PO BID Qty: 20 0RF Stand Alone Forms: ED Work / School Excuse Primary Care Provider: Linwood Jules Referrals: Linwood Jules MD [Primary Care Provider] - Kirsten Recinos Zheng, FLAME CUTTING MACHINE OPERATOR-C [[facility]] - Activity Restrictions/Additional Instructions: You have influenza A. Use your inhaler as needed and take Tylenol or ibuprofen. Rest and drink plenty of fluids. Your blood sugar was very high at 426. I prescribed Humalog to take before each meal and Lantus to take at night. I started with very low doses of Humalog since he did not know what you are on before. It is very important you follow- up with a primary care doctor in the next week for reevaluation. Print Language: [place] Disposition Disposition: Home, Self Care Discharge Date/Time: 10/30/24 14:55
[2024-10-30] MEDS: Ipratropium/Albuterol Sulfate 3 ML AMPUL.NEB INHALATION ×2 (11:09→12:54)
[2024-10-30] MEDS: 0.9% Normal Saline (1000mL) 1,000 ML 999 ML IV ×2 (11:19→13:33)
[2024-10-30 11:35] LABS: Absolute Lymphocyte Count 0.54 X10^3/uL (0.83-4.51); Absolute Neutrophil Count 4.3 X10^3/uL (2.0-7.7); Basophil# 0.02 X10^3/uL; Basophil% 0.4 % (0-1); Eosinophil# 0.01 X10^3/uL; Eosinophils% 0.2 % (0-5); Hematocrit 43.4 % (40-54); Hemoglobin 14.4 g/dL (13.0-16.5); Lymphocyte # 0.54 X10^3/ul (0.83-4.51); Mean Corp Hgb Conc 33.2 g/dL (32-36); Mean Corpuscular Hgb 27.2 pg (27.0-32.0); Mean Platelet Vol. 9.8 fl (6.2-12.0); Monocyte# 0.45 X10^3/uL; Monocyte% 8.3 % (0-10); NRBC Flagged by Analyzer 0 % (0-5); Neutrophil # 4.31 X10^3/uL (2.7-7.7); Neutrophil % 79.4 % (47-70); POSITIVE DIFFERENTIAL YES; Platelet Count 168 K/mm3 (150-450); RBC Distribution Width CV 13.7 % (11.6-14.6); RBC Distribution Width SD 40.6 fl (35.1-43.9); Red Blood Count 5.29 M/mm3 (4.6-6.2); White Blood Count 5.4 K/mm3 (4.4-11.0)
[2024-10-30 11:51] LABS: Anion Gap 16 (5-15); BUN 8 mg/dL (4-19); BUN/Creat Ratio 10.5 RATIO (10-20); Calcium,Total 9.4 mg/dL (7.6-11.0); Carbon Dioxide 19.8 mmol/L (21.0-32.0); Chloride 95 mmol/L (98-108); Creatinine, Serum 0.73 mg/dL (0.70-1.20); EST Glomerular Filtration Rate 113 (>60); Estimated Creatinine Clearance 180.86 ml/min (50-250); Glucose 426 mg/dL (70-99); Potassium 3.6 mmol/L (3.3-5.1); Sodium Level 131 mmol/L (133-145)
[2024-10-30] MEDS: Ketorolac 15 MG/ML Vial IV (12:12)
[2024-10-30 12:28] LABS: BETA-HYDROXYBUTYRATE 2.3 mmol/L (0.0-0.3)
[2024-10-30 13:33] LABS: Blood Gas Specimen Type VEN; O2 Delivery Device Not entered; SITE Not entered; VBG BASE EXCESS -3 mmol/L (-1.0-3.5); VBG Bicarbonate 21 mmol/L (22-26); VBG PO2 56 mmHg (25-40); VBG SO2 89 % (50-70); VBG TCO2 22 mmol/L (23-33); VBG pCO2 33.9 mmHg (41-51); VBG pH 7.41 (7.32-7.42)
[2024-10-30] MEDS: Insulin Lispro 100 UNIT/ML INSULN.PEN 10 UNIT SC (14:19)
[2024-10-30 15:09] LABS: Bedside Glucose 302 mg/dL (74-106)
== END 2024-10-30 14:55 | disposition home or self-care (01) ==
PROVIDERS: Physician Assistant; Emergency Provider Emergency Medicine; PCP Internal Medicine; Visit Provider Emergency Medicine
DX: J10.1 Influenza due to other identified influenza virus with other respiratory manifestations (principal); J44.9 Chronic obstructive pulmonary disease, unspecified; E11.65 Type 2 diabetes mellitus with hyperglycemia; Z79.4 Long term (current) use of insulin; I10 Essential (primary) hypertension; Z87.891 Personal history of nicotine dependence; K21.9 Gastro-esophageal reflux disease without esophagitis; Z79.85 Long-term (current) use of injectable non-insulin antidiabetic drugs; Z91.148 Patient's other noncompliance with medication regimen for other reason
CPT/HCPCS: 71046; 80048; 82010; 82803; 82962; 85025; 87631; 94640; 96361; 96374; 99283

== ENCOUNTER 2024-11-05 12:38 | Emergency (ER) | payer OTHER, SELFPAY ==
[2024-11-05] VITALS (7 sets, daily range): BP systolic 150–214; BP diastolic 91–109; PULSE 90–113; RESP 18–24; TEMP 37.2–37.6; O2SAT 92–99; BMI 60.0
--- NOTE | 2024-11-05 12:50 | EKG12_ITS ---
Test Reason : SOB Blood Pressure : */* mmHG Vent. Rate : 90 BPM Atrial Rate : 90 BPM P-R Int : 150 ms QRS Dur : 96 ms QT Int : 360 ms P-R-T Axes : 57 63 -41 degrees QTcB Int : 440 ms Normal sinus rhythm Nonspecifc ST/T wave changes Abnormal ECG Confirmed by Maxx Beaver ([id number]), editorial writer JESS FIGUEROA ([id number]) on 11/06/2024 1:19:02 PM Referred By: Confirmed By: Maxx Beaver
--- NOTE | 2024-11-05 12:50 | RAD_ITS ---
PROCEDURE: CHEST PA AND LATERAL 11/05/2024 REASON FOR EXAM: COUGH AND WHEEZING TECHNIQUE: Frontal and lateral views of the chest. COMPARISON: Chest radiograph 10/30/2024 FINDINGS: Hardware: None. Heart: The heart size is normal. Mediastinum: The mediastinal contour is unremarkable. Lungs: No focal consolidation, pleural effusion or pneumothorax. Bones: Degenerative changes are identified within the thoracic spine. RAD/Chest PA and Lateral IMPRESSION: NEGATIVE CHEST Reading Location: [id number]
--- NOTE | 2024-11-05 12:51 | EX.ED.DYSGE1 ---
HPI History of Present Illness Chief Complaint: General Illness Onset/Context/Timing Onset: Days Context: Gradual Onset Timing: Continuous Current Severity: Mild Maximum Severity: Mild Narrative Narrative: 49-year-old male history of diabetes, AL, hypertension, COPD and asthma. Was diagnosed around 4 7 about 6 days ago with influenza A. States that he has had more wheezing and more shortness of breath. Productive cough of lazo to brown phlegm. Chest discomfort with coughing. States his blood sugars have been running around 300. Recently been out of his insulin but had a rewritten his last emergency department visit 6 days ago or so. Prior similar symptoms: Yes Recent Illness/Hospitalization: No [facility] Medical History Hearing loss, left Anxiety Depression Diabetes Sleep apnea CPAP (continuous positive airway pressure) dependence COPD (chronic obstructive pulmonary disease) Asthma Myocardial infarct Hypertension Migraines GERD (gastroesophageal reflux disease) PATRICIA (obstructive sleep apnea) Hypertension Diabetes COPD (chronic obstructive pulmonary disease) Home Medications ?Medication ?Instructions ?Recorded ?Last Taken ?Type Jardiance 25 mg PO DAILY 06/29/21 Unknown History omeprazole 80 mg PO DAILY REFLUX 06/29/21 01/20/23 History aspirin 81 mg capsule 81 mg PO DAILY 12/28/21 Unknown History losartan 50 mg tablet 50 mg PO DAILY 12/28/21 Unknown History albuterol sulfate 2.5 mg/3 mL 2.5 mg inhalation Q4H PRN 01/20/23 Unknown History (0.083 %) solution for nebulization shortness of breath or wheezing bupropion HCl 150 mg tablet,12 hr 150 mg PO DAILY 01/20/23 01/20/23 History sustained-release dulaglutide 0.75 mg/0.5 mL 0.75 mg subcut QWEEK 01/20/23 06/03/23 History subcutaneous pen injector (Trulicity) epinephrine 0.3 mg/0.3 mL 0.3 ml IM PRN allergic reaction 01/20/23 Unknown History injection, auto-injector meloxicam 15 mg tablet 15 mg PO DAILY 01/20/23 01/20/23 History rosuvastatin 20 mg tablet 20 mg PO DAILY 01/20/23 Unknown History albuterol sulfate 90 mcg/actuation 2 puff inhalation Q4H PRN 06/10/23 Unknown History aerosol inhaler (Ventolin HFA) shortness of breath or wheezing fluticasone fur. 200 mcg-umeclid 1 inh inhalation DAILY 06/10/23 Unknown History 62.5 mcg-vilant 25 mcg inhalat.powder (Trelegy Ellipta) insulin glargine 100 unit/mL (3 22 unit subcut QHS 06/10/23 Unknown History mL) subcutaneous pen (Lantus Solostar U-100 Insulin) doxycycline monohydrate 100 mg 100 mg PO BID #20 CAPSULES 10/20/23 Unknown Rx capsule metoclopramide HCl 10 mg tablet 10 mg PO Q6H PRN nausea and 10/20/23 Unknown Rx (Reglan) vomiting #10 tabs cephalexin 500 mg capsule 500 mg PO TID 7 days #21 caps 02/15/24 Unknown Rx sulfamethoxazole 800 1 tab PO BID #14 tabs 02/15/24 Unknown Rx mg-trimethoprim 160 mg tablet albuterol sulfate 90 mcg/actuation 1 - 2 puff inhalation Q4H PRN PRN 10/30/24 Unknown Rx aerosol inhaler (Ventolin HFA) Wheezing #1 device insulin glargine 100 unit/mL (3 22 unit (0.22 mL) subcut QPM 30 10/30/24 Unknown Rx mL) subcutaneous pen (Lantus days #6.6 mL Solostar U-100 Insulin) insulin lispro 100 unit/mL 5 unit (0.05 mL) subcut TID 30 10/30/24 Unknown Rx subcutaneous pen (Humalog KwikPen days #4.5 mL (U-100) Insulin) prednisone 20 mg tablet 40 mg (2 x 20 mg) PO DAILY 5 days 11/05/24 Unknown Rx #10 tabs Allergy/AdvReac Type Severity Reaction Status Date / Time azithromycin (From Zithromax) Allergy Swelling Verified 11/05/24 12:39 bee venom protein (honey bee) Allergy Hives Verified 11/05/24 12:39 codeine Allergy Swelling Verified 11/05/24 12:39 Latex, Natural Rubber Allergy Anaphylaxis Verified 11/05/24 12:39 ondansetron (From Zofran) Allergy Vomiting Verified 11/05/24 12:39 Family History Other Diabetes Hypertension Surgical History History of meniscectomy of right knee History of carpal tunnel repair History of cholecystectomy Social History household members: spouse housing: house Smoking Status: Former smoker alcohol intake: never substance use type: does not use ROS ROS ED ROS Narrative Cough. Fever. Wheezing. Constitutional Constitutional ED: Reports fever(s) Eyes Eyes: Denies blurry vision ENT ENT ED: Denies ear pain Cardiovascular Cardiovascular: Denies chest pain Respiratory/Chest Respiratory/Chest: Reports cough, dyspnea, sputum and other Details: Wheezing. Gastrointestinal Gastrointestinal: Reports diarrhea; Denies abdominal pain, constipation, melena, nausea or vomiting Genitourinary Genitourinary ED: Denies dysuria or hematuria Musculoskeletal Musculoskeletal: Denies arthralgias Integumentary Denies abscess Neurologic Neurologic: Denies headache(s) Psychiatric Psychiatric: Denies anxiety Endocrine Endocrinology: Denies cold intolerance Hematologic/Lymphatic Hematologic/Lymphatic: Reports none Allergic/Immunologic Allergic/Immunologic ED: Denies mouth swelling, tongue swelling or urticaria EXAM Physical Exam Narrative Exam Narrative: 49-year-old male sitting upright in bed. Vital signs are stable initial blood pressure is elevated 214/109. Temperature nine 9.6 orally. Pulse ox is 95% on room air no hypoxia. He is in no significant respiratory distress. Sharda with him. H EENT exam pupils round reactive light. Moist with membranes. Neck nontender no JVD. No lymphadenopathy. Lungs wet cough. Scattered wheezes. No rales or rhonchi. Equal symmetrical. Heart tachycardic 110 no murmur. Chest wall and ribs nontender. Abdomen soft nontender. Normal bowel sounds without peritoneal signs. Moving all 4 extremities. Normal strength. Calves nontender. Back nontender. Neurologically is awake and alert. Answering questions following commands. Const Vital Signs: 11/05/24 12:39 11/05/24 12:42 11/05/24 12:50 Temperature 99.6 F H 99.6 F H Temperature Source Oral Oral Pulse Rate 113 H 91 Respiratory Rate 24 H 20 H Respiratory Effort Short of Breath Labored Respiratory Pattern Tachypnea Blood Pressure 214/109 H 162/91 H Blood Pressure Mean 144 114 Pulse Ox 95 93 Oxygen Delivery Method Room Air Room Air 11/05/24 13:13 11/05/24 13:13 11/05/24 13:15 Temperature Temperature Source Pulse Rate 97 Respiratory Rate 18 18 Respiratory Effort Respiratory Pattern Blood Pressure Blood Pressure Mean Pulse Ox 92 92 Oxygen Delivery Method Room Air Room Air 11/05/24 13:42 Temperature 99 F Temperature Source Oral Pulse Rate 91 Respiratory Rate 20 H Respiratory Effort Respiratory Pattern Blood Pressure 150/99 H Blood Pressure Mean 116 Pulse Ox 98 Oxygen Delivery Method Room Air Positive well nourished, well developed and obese; Negative for cachectic, contractures or unkempt General Appearance ED: well developed and NAD; Negative for unkempt, cachectic, contractures, cyanotic, diaphoretic or pallor Nutritional Appearance: obese; Negative for cachectic HEENT Reports moist mucous membranes Negative for trauma Eyes PERRL and EOMs intact bilaterally Neck no lymphadenopathy, supple and no JVD Chest Wall inspection of chest normal and palpation of chest normal Resp No normal respiratory effort and No clear to auscultation bilaterally Resp Narrative: Increased respiratory rate. Prolonged expiratory phase. Scattered wheezing. Auscultation: wheezes; Negative for rales or rhonchi Cardio regular rhythm, S1 normal heart sound, S2 normal heart sound and no murmurs; Negative for regular rate Rate: tachycardic GI normal to inspection, nondistended, normoactive bowel sounds, non-tender, non-distended and no masses Palpation: soft; Negative for tender or guarding Back/Spine no CVA tenderness General Back: Negative for CVA tenderness Cervical Spine: Negative for cervical spine tenderness Thoracic Spine / Upper Back: Negative for thoracic spinal tenderness Lumbar Spine / Lower Back: Negative for lumbar spinal tenderness Extremity normal to inspection General Extremety ED: Negative for edema or tenderness General Extremity: Negative for edema Neuro oriented x3 and CN's II-XII intact bilaterally Sensorium / Orientation: alert; Negative for orientation impaired, lethargic or stuporous Motor Exam: strength 5/5 throughout Psych mental status grossly normal Appearance: Negative for unkempt Skin no rashes or lesions noted, no wounds and skin turgor normal General Skin Exam: Negative for jaundice or pallor Lesions: No lesion noted Rashes: No rashes noted Trauma: Negative for abrasion MDM MDM MDM Narrative Medical decision making narrative: 49-year-old diabetic male with asthma COPD diagnosed with influenza A about 6 days ago. Complaining of feeling worse. He has scattered wheezing prolonged expiratory phase. He will be treated with IV Solu-Medrol. DuoNeb and albuterol aerosols. Chest x-ray, EKG and screening labs. Differential would include exacerbation of asthma and COPD due to influenza. Rule out pneumonia. Versus effusion. Versus other etiologies. Multiple repeat exams patient is much improved after the aerosol treatment and IV steroids. He was given subcu insulin for his blood sugar 310. Patient is comfortable being discharged to home. Will be treated for acute exacerbation of asthma and COPD due to influenza A. Watch his blood sugars closely. Follow-up with his doctor if not improving or return if worse. History & Record Review Discussion w/independent historian: Patient Additional record(s) reviewed:: Prior inpatient record, Prior outpatient record, Prior ED visit and Prior labs Lab Data Attestation: I reviewed the patient's lab results. Lab results narrative: CBC normal. White count of 6.8. H&H 15 and 45. Platelets 245. Chemistries show potassium 3.2. Gap 16. BUN and creatinine of five 0.6. Glucose 310. Troponin equals 7. Labs: Laboratory Results - last 24 hr 11/05/24 13:03 WBC 6.8 RBC 5.52 Hgb 15.1 Hct 45.2 MCV 81.9 MCH 27.4 MCHC 33.4 RDW Std Deviation 39.8 RDW Coeff of Antonia 13.5 Plt Count 245 MPV 9.2 Neut % (Auto) Not Reportable Sodium 137 Potassium 3.2 L Chloride 96 L Carbon Dioxide 24.7 Anion Gap 16 H BUN 5 Creatinine 0.61 L Estim Creat Clear Calc 216.67 Est GFR (MDRD) Non-Af 119 BUN/Creatinine Ratio 8.2 L Glucose 310 H Calcium 9.5 Troponin T High Sens 7 Radiography Chest X-Ray - ED: 2 View, Read by ED Physician, Heart, Lungs, Mediastinum, Bony Structures, No Acute Disease and Chronic Changes Diagnostic Testing: Clinical Impression(s) from Imaging Studies Chest X-Ray 11/05/24 12:50 IMPRESSION: NEGATIVE CHEST Reading Location: [facility] Chest x-ray, 2 views, AP and lateral, interpreted by myself shows no acute abnormality. Normal cardiac silhouette. No effusions. No infiltrate nor pneumonia. No pulmonary edema. Rhythm Strip Rhythm Strip: Sinus Rhythm Rate: 90 Ectopy: None EKG Initial EKG: Attestation: I personally reviewed and interpreted this EKG as follows: Interpretation: Sinus Rhythm Comments: Normal sinus rhythm. Rate of 98. Inverted T waves 2, 3, aVF. Also in V4 through V6. Mild changes laterally from prior EKG from 2023. Prior EKG tracings: available for review Prior: Changed Discharge Plan Triage Chief Complaint: General Illness ED Provider: Isael Ko Dx/Rx/DC Orders Clinical Impression: Influenza A, Acute asthma flare, Acute exacerbation of chronic obstructive pulmonary disease, Hyperglycemia due to diabetes mellitus Instructions: ED COPD Flare, ED Diabetic Hyperglycemia, Asthma Prescriptions: New prednisone 20 mg tablet 40 mg PO DAILY 5 Days Qty: 10 0RF No Action cephalexin 500 mg capsule 500 mg PO TID 7 Days Qty: 21 0RF sulfamethoxazole-trimethoprim 800-160 mg tablet 1 tab PO BID Qty: 14 0RF Jardiance 25 mg PO DAILY omeprazole 80 mg PO DAILY losartan 50 mg Tablet 50 mg PO DAILY aspirin 81 mg Capsule 81 mg PO DAILY albuterol sulfate 2.5 mg /3 mL (0.083 %) solution for nebulization 2.5 mg inhalation Q4H PRN (Reason: shortness of breath or wheezing) Patient Comments: USE 1 VIAL IN NEBULIZER EVERY 4 HOURS NEEDED FOR WHEEZING OR SHORTNESS OF BREATH. USE OVER 5 TO 15 MINUTES. Trulicity 0.75 mg/0.5 mL pen injector 0.75 mg SUBCUT QWEEK bupropion HCl 150 mg tablet sustained-release 12 hr 150 mg PO DAILY epinephrine 0.3 mg/0.3 mL auto-injector 0.3 ml IM PRN Patient Comments: INJECT CONTENTS OF 1 PEN NEEDED FOR ALLERGIC REACTION. meloxicam 15 mg tablet 15 mg PO DAILY rosuvastatin 20 mg tablet 20 mg PO DAILY Patient Comments: TAKE 1 TABLET BY MOUTH ONCE DAILY Trelegy Ellipta 200-62.5-25 mcg blister with device 1 inh INHALATION DAILY Patient Comments: INHALE 1 PUFF ONCE DAILY insulin glargine [Lantus Solostar U-100 Insulin] 100 unit/mL (3 mL) insulin pen 22 unit SUBCUT QHS Patient Comments: INJECT 22 UNITS SUBCUTANEOULSY ONCE DAILY AT BEDTIME albuterol sulfate [Ventolin HFA] 90 mcg/actuation HFA aerosol inhaler 2 puff INHALATION Q4H PRN (Reason: shortness of breath or wheezing) Patient Comments: pt states my pulmonary doctor says take 4 puffs Rx Instructions: INHALE 2 PUFFS BY MOUTH EVERY 4 HOURS NEEDED FOR WHEEZING OR SHORTNESS OF BREATH metoclopramide HCl [Reglan] 10 mg tablet 10 mg PO Q6H PRN (Reason: nausea and vomiting) Qty: 10 0RF doxycycline monohydrate 100 mg capsule 100 mg PO BID Qty: 20 0RF albuterol sulfate [Ventolin HFA] 90 mcg/actuation HFA aerosol inhaler 1 - 2 puff inhalation Q4H PRN PRN (Reason: Wheezing) Qty: 1 0RF insulin glargine [Lantus Solostar U-100 Insulin] 100 unit/mL (3 mL) insulin pen 22 unit subcut QPM 30 Days Qty: 6.6 0RF insulin lispro [Humalog KwikPen Insulin] 100 unit/mL insulin pen 5 unit subcut TID 30 Days Qty: 4.5 0RF Primary Care Provider: Linwood Jules Referrals: Linwood Jules MD [Primary Care Provider] - 3-5 Days if not improving Activity Restrictions/Additional Instructions: Your chest x-ray and labs look good. I believe you are wheezing from the underlying influenza and your underlying lung disease your asthma and COPD. Prednisone 40 mg a day for the next 5 days starting tomorrow. Watch your blood sugars very closely because this will raise your blood sugars. We did give you a dose of steroids today through the IV. You do not need to start your prednisone till tomorrow. Use your inhaler as needed. Use your nebulizer at home as needed for wheezing and shortness of breath. Follow-up with your doctor if not improving. Return if worse. Check your blood sugar in an 1- 2 hours after leaving the emergency department because we gave you the insulin. Print Language: Bengali Disposition Disposition: Home, Self Care
[2024-11-05] MEDS: 0.9% Normal Saline (1000mL) 1,000 ML 1000 ML IV (12:57)
[2024-11-05] MEDS: MethylPREDNISolone 125 MG/2 ML Vial IV (12:57)
[2024-11-05] MEDS: Ipratropium/Albuterol Sulfate 3 ML AMPUL.NEB INHALATION (13:04)
[2024-11-05] MEDS: Albuterol 2.5 MG/3 ML VIAL.NEB. INHALATION (13:04)
[2024-11-05 13:32] LABS: Anion Gap 16 (5-15); BUN 5 mg/dL (4-19); BUN/Creat Ratio 8.2 RATIO (10-20); Calcium,Total 9.5 mg/dL (7.6-11.0); Carbon Dioxide 24.7 mmol/L (21.0-32.0); Chloride 96 mmol/L (98-108); Creatinine, Serum 0.61 mg/dL (0.70-1.20); EST Glomerular Filtration Rate 119 (>60); Estimated Creatinine Clearance 216.67 ml/min (50-250); Glucose 310 mg/dL (70-99); Potassium 3.2 mmol/L (3.3-5.1); Sodium Level 137 mmol/L (133-145)
[2024-11-05 13:53] LABS: Troponin T High Sensitivity 7 ng/L (<=22)
[2024-11-05 14:15] LABS: Hematocrit 45.2 % (40-54); Hemoglobin 15.1 g/dL (13.0-16.5); Mean Corp Hgb Conc 33.4 g/dL (32-36); Mean Corpuscular Hgb 27.4 pg (27.0-32.0); Mean Corpuscular Volume 81.9 fL (80-94); Mean Platelet Vol. 9.2 fl (6.2-12.0); POSITIVE MORPHOLOGY YES; Platelet Count 245 K/mm3 (150-450); RBC Distribution Width CV 13.5 % (11.6-14.6); RBC Distribution Width SD 39.8 fl (35.1-43.9); Red Blood Count 5.52 M/mm3 (4.6-6.2); White Blood Count 6.8 K/mm3 (4.4-11.0)
[2024-11-05] MEDS: Insulin Lispro 100 UNIT/ML INSULN.PEN 10 UNIT SC (14:24)
[2024-11-05 14:39] LABS: Differential Indicated MANUAL DIFF
[2024-11-05 14:43] LABS: Blast 1 % (0-0); Eosinophil 2 % (0-5); Lymphocyte 23 % (19-41); Metamyelocyte 1 % (0-1); Monocyte 1 % (0-10); Neutrophil-Segmented 72 % (47-70); Platelet Estimate ADEQUATE (ADEQ); Polychromasia 1+; Total Cells Counted 100 (MANUAL DIFF)
[2024-11-05 14:44] LABS: Anisocytosis 1+; Atypical Lymphocyte 1+ %; Reactive Lymphocyte 1+
[2024-11-05 14:45] LABS: Absolute Neutrophil Count 4.9 X10^3/uL (2.0-7.7)
[2024-11-05 14:46] LABS: Absolute Lymphocyte Count 1.56 X10^3/uL (0.83-4.51); Pathologist Review May foll
== END 2024-11-05 14:53 | disposition home or self-care (01) ==
PROVIDERS: Emergency Provider Emergency Medicine; PCP Internal Medicine; Visit Provider Emergency Medicine
DX: J10.1 Influenza due to other identified influenza virus with other respiratory manifestations (principal); J44.1 Chronic obstructive pulmonary disease with (acute) exacerbation; E11.65 Type 2 diabetes mellitus with hyperglycemia; I10 Essential (primary) hypertension; Z87.891 Personal history of nicotine dependence; R19.7 Diarrhea, unspecified; E66.9 Obesity, unspecified; I25.2 Old myocardial infarction; K21.9 Gastro-esophageal reflux disease without esophagitis
CPT/HCPCS: 71046; 80048; 84484; 85025; 93005; 94640; 96360; 99252; 99282; A4216; G0463

== ENCOUNTER 2024-11-07 10:19 | Inpatient (IN) | payer OTHER, SELFPAY ==
[2024-11-07] VITALS (14 sets, daily range): BP systolic 96–178; BP diastolic 74–113; PULSE 92–117; RESP 11–24; TEMP 36.5–37.1; O2SAT 92–96; BMI 57.4; BMI 55.3
--- NOTE | 2024-11-07 10:56 | RAD_ITS ---
PROCEDURE: CHEST PA AND LATERAL 11/07/2024 REASON FOR EXAM: COUGH TECHNIQUE: Frontal and lateral views of the chest. COMPARISON: Comparison is made with prior study dated November 05, 2024. FINDINGS: Hardware: EKG electrodes are seen. Heart: The heart size is normal. Mediastinum: The mediastinal contour is unremarkable. Lungs: Hyperinflation. The lungs are clear. Bones: The bones are unremarkable. RAD/Chest PA and Lateral IMPRESSION: Hyperinflation. The lungs are clear. Reading Location: [place] [id number]
--- NOTE | 2024-11-07 10:57 | EKG12_ITS ---
Test Reason : SOB Blood Pressure : */* mmHG Vent. Rate : 102 BPM Atrial Rate : 102 BPM P-R Int : 144 ms QRS Dur : 98 ms QT Int : 354 ms P-R-T Axes : 73 75 -64 degrees QTcB Int : [address] & T wave abnormality, consider inferior ischemia ST & T wave abnormality, consider anterolateral ischemia Abnormal ECG Confirmed by Maxx Beaver ([id number]), editor magazine JESS FIGUEROA ([id number]) on 11/10/2024 6:47:11 AM Referred By: Confirmed By: Maxx Beaver
--- NOTE | 2024-11-07 11:03 | EX.ED.DYSGE1 ---
HPI <PATY Baker - Last Filed: 11/07/24 13:07> History of Present Illness Chief Complaint: Shortness of Breath Narrative Narrative: Patient is a 49-year-old male with history of morbid obesity, asthma, uncontrolled diabetes, COPD who presents to the [facility] for reevaluation for cough, shortness of breath. Patient was seen here on November 05, 2024, diagnosed with COPD exacerbation, placed on steroids. Patient states the cough is getting worse, he was also 85% at home. He is concerned that he is not getting better. Both him and his had influenza A October 29, 2024. Patient states he is not improving. [facility] <PATY Baker - Last Filed: 11/07/24 13:07> [facility] Medical History Hearing loss, left Anxiety Depression Diabetes Sleep apnea CPAP (continuous positive airway pressure) dependence COPD (chronic obstructive pulmonary disease) Asthma Myocardial infarct Hypertension Migraines GERD (gastroesophageal reflux disease) PATRICIA (obstructive sleep apnea) Hypertension Diabetes COPD (chronic obstructive pulmonary disease) Home Medications ?Medication ?Instructions ?Recorded ?Last Taken ?Type aspirin 81 mg capsule 81 mg PO DAILY 12/28/21 11/06/24 History losartan 50 mg tablet 50 mg PO DAILY 12/28/21 Unknown History albuterol sulfate 2.5 mg/3 mL 2.5 mg inhalation Q4H PRN 01/20/23 Unknown History (0.083 %) solution for nebulization shortness of breath or wheezing bupropion HCl 150 mg tablet,12 hr 150 mg PO DAILY 01/20/23 01/20/23 History sustained-release epinephrine 0.3 mg/0.3 mL 0.3 ml IM PRN allergic reaction 01/20/23 Unknown History injection, auto-injector albuterol sulfate 90 mcg/actuation 4 puff inhalation Q4H PRN 06/10/23 Unknown History aerosol inhaler (Ventolin HFA) shortness of breath or wheezing insulin glargine 100 unit/mL (3 22 unit (0.22 mL) subcut QPM 30 10/30/24 11/06/24 Rx mL) subcutaneous pen (Lantus days #6.6 mL Solostar U-100 Insulin) insulin lispro 100 unit/mL 5 unit (0.05 mL) subcut TID 30 10/30/24 11/06/24 Rx subcutaneous pen (Humalog KwikPen days #4.5 mL (U-100) Insulin) omeprazole 40 mg capsule,delayed 80 mg PO DAILY 11/07/24 11/06/24 History release prednisone 20 mg tablet 20 mg PO DAILY 11/07/24 11/06/24 History Allergy/AdvReac Type Severity Reaction Status Date / Time azithromycin (From Zithromax) Allergy Swelling Verified 11/07/24 10:23 bee venom protein (honey bee) Allergy Hives Verified 11/07/24 10:23 codeine Allergy Swelling Verified 11/07/24 10:23 Latex, Natural Rubber Allergy Anaphylaxis Verified 11/07/24 10:23 ondansetron (From Zofran) Allergy Vomiting Verified 11/07/24 10:23 Family History Other Diabetes Hypertension Surgical History History of meniscectomy of right knee History of carpal tunnel repair History of cholecystectomy Social History household members: spouse housing: house Smoking Status: Former smoker alcohol intake: never substance use type: does not use ROS <PATY Baker - Last Filed: 11/07/24 13:07> ROS ED ROS Narrative Constitutional: Negative for fever, chills, weight loss. Positive for weakness Eyes: Negative for vision loss, vision change, double vision ENT: Negative for any sore throat, ear pain, congestion Cardiovascular: Negative for any chest pain, tightness, palpitations Respiratory: Positive for cough, dyspnea, dyspnea on exertion, orthopnea, sputum production Gastrointestinal: Negative for any abdominal pain, nausea, vomiting, diarrhea, constipation, blood in stool, blood in vomit : Negative for any urinary frequency, dysuria, retention, blood in urine Muscle skeletal: Negative for any neck pain, back pain Neurological: Negative for any headache, syncope, dizziness Skin: Negative for any rashes, itching, abrasions, lacerations Psychiatric: Negative for any depression, anxiety, stress, suicidal ideation, homicidal ideation Hematologic: Negative for any excessive bruising, easy bleeding EXAM <PATY Baker - Last Filed: 11/07/24 13:07> Physical Exam Narrative Exam Narrative: Vital signs reviewed. Patient was 86% on room air after walking from the bathroom. Patient is to be placed on 2 to 3 L of nasal cannula oxygen. Patient is continuing coughing. HEET: Head normocephalic atraumatic, TMs clear bilaterally. Posterior pharynx is clear, moist mucous membranes. Nares clear bilaterally. Neck: Supple with no lymphadenopathy or tenderness. No signs of meningismus. Cardiac: Tachycardic rate no murmurs gallops or rubs, equal peripheral pulses bilaterally. Respiratory: Patient's tachypnea, coarse expiratory wheezes throughout pulmonary exam.. No chest tenderness. Abdomen: Soft, nontender, nondistended. No abdominal bruit or pulsatile masses. No hepatosplenomegaly Extremities: No peripheral edema, no signs of gross trauma or deformity. Active full range of motion of all extremities. Neuro: Cranial nerves II through XII intact, no focal neurological deficits. Skin: Clean dry and intact with no rash, purpura, petechiae, vesicles or pustules. Backs/flank: No CVA tenderness, no midline spinal tenderness, no deformity. Psych: Normal mood and affect. No SI, HI or acute psychosis. Const Vital Signs: 11/07/24 10:21 11/07/24 11:41 11/07/24 13:10 Temperature 97.7 F L 98.8 F Temperature Source Oral Temporal Pulse Rate 117 H 100 92 Respiratory Rate 22 H 18 11 L Respiratory Effort Respiratory Depth Respiratory Pattern Normal Blood Pressure 151/113 H 143/80 H Blood Pressure Mean 125 101 Pulse Ox 92 94 Oxygen Delivery Method Room Air Nasal Cannula 11/07/24 13:10 11/07/24 13:10 Temperature Temperature Source Pulse Rate Respiratory Rate Respiratory Effort Short of Breath Labored Respiratory Depth Normal Respiratory Pattern Normal Blood Pressure Blood Pressure Mean Pulse Ox Oxygen Delivery Method Nasal Cannula Positive well nourished and well developed General Appearance ED: well developed <Dr. Jose Alejandro Mae MD - Last Filed: 11/07/24 13:17> Physical Exam Const Vital Signs: 11/07/24 10:21 11/07/24 11:41 11/07/24 13:10 Temperature 97.7 F L 98.8 F Temperature Source Oral Temporal Pulse Rate 117 H 100 92 Respiratory Rate 22 H 18 11 L Respiratory Effort Respiratory Depth Respiratory Pattern Normal Blood Pressure 151/113 H 143/80 H Blood Pressure Mean 125 101 Pulse Ox 92 94 Oxygen Delivery Method Room Air Nasal Cannula 11/07/24 13:10 11/07/24 13:10 Temperature Temperature Source Pulse Rate Respiratory Rate Respiratory Effort Short of Breath Labored Respiratory Depth Normal Respiratory Pattern Normal Blood Pressure Blood Pressure Mean Pulse Ox Oxygen Delivery Method Nasal Cannula MDM <Saturnino Arellano NP-C - Last Filed: 11/07/24 13:07> [facility] Lab Data Labs: Laboratory Results - last 24 hr 11/07/24 11:32 WBC 10.0 RBC 5.14 Hgb 14.1 Hct 41.9 MCV 81.5 MCH 27.4 MCHC 33.7 RDW Std Deviation 40.5 RDW Coeff of Antonia 13.7 Plt Count 295 MPV 8.9 Immature Gran % (Auto) 4.600 H Neut % (Auto) 61.9 Lymph % (Auto) 26.8 [place] % (Auto) 5.4 Eos % (Auto) 0.4 Baso % (Auto) 0.9 Absolute Neuts (auto) 6.2 Absolute Lymphs (auto) 2.68 Nucleated RBC % 0 Sodium 136 Potassium 3.1 L Chloride 98 Carbon Dioxide 21.5 Anion Gap 17 H BUN 12 Creatinine 0.79 Estim Creat Clear Calc 162.86 Est GFR (MDRD) Non-Af 110 BUN/Creatinine Ratio 14.6 Glucose 427 H Lactic Acid 1.9 Calcium 8.6 Troponin T High Sens 7 NT pro BNP II 51 ABG Data ABG results: ABG 11/07/24 12:07 Specimen Type TAMMIE Sample Site Not entered O2 % 3.0 VBG pH 7.41 VBG pO2 29 VBG HCO3 28 H VBG Total CO2 29 VBG O2 Sat (Calc) 55 VBG Base Excess 3 POC Mix VBG pCO2 Pt Tmp 44.0 O2 Delivery Device Cannula Radiography Diagnostic Testing: Clinical Impression(s) from Imaging Studies Chest X-Ray 11/07/24 10:56 IMPRESSION: Hyperinflation. The lungs are clear. Reading Location: [facility] EKG Sinus tachycardia,: Attestation: I personally reviewed and interpreted this EKG as follows: Interpretation: Sinus Rhythm Comments: Sinus tachycardia, rate 102 bpm, FL interval 144 ms, QRS duration 98 ms, no acute ST elevation, no acute infarct noted. Treatment and Re-Evaluation :: Differential diagnosis includes however is not limited to: Post influenza pneumonia, COVID-19, sequelae of influenza, COPD exacerbation, asthma exacerbation, PE Patient did appear to be in mild distress secondary to shortness of breath. Patient did receive a full respiratory workup. IV fluids, two-view chest x-ray, breathing treatments, IV steroids. I do believe the patient will need to be admitted to the hospital. Secondary to not improving, patient will be started on IV Rocephin, IV doxycycline. After my initial evaluation of the patient, I did let the patient know he will likely be admitted to the hospital. He is agreeable. All radiologic examinations were read, reviewed by the emergency department attending. From these reads, a plan of care will be put in place. Patient's chest x-ray shows hyperinflation, no acute process. CBC was unremarkable, chemistries show potassium 3.1, kidney function within normal limits at 0.79, glucose 427, this is likely secondary the patient not being compliant with his diabetic medication. Patient is also been on steroids. proBNP was negative, troponin was negative. At this time, I do believe the patient needs to be admitted to the hospital. Patient still requires oxygen, IV antibiotics to be given. Patient be admitted to medicine. <Dr. Jose Alejandro Mae MD - Last Filed: 11/07/24 13:17> [facility] Narrative Medical decision making narrative: I have personally performed a face to face assessment of the patient and have reviewed the VIVIANA Note. I performed a substantive portion of the visit including all aspects of the following. My schaffer findings include: History is remarkable for recent diagnosis of Exam is [ ] Medical Decision Making [ ] Other additions or changes: [None] Lab Data Attestation: I reviewed the patient's lab results. Lab results narrative: CBC is unremarkable. Basic metabolic panel is marked for glucose of 427 with a normal CO2 to. Anion gap is elevated. Troponin and BNP are both normal. Labs: Laboratory Results - last 24 hr 11/07/24 11:32 WBC 10.0 RBC 5.14 Hgb 14.1 Hct 41.9 MCV 81.5 MCH 27.4 MCHC 33.7 RDW Std Deviation 40.5 RDW Coeff of Antonia 13.7 Plt Count 295 MPV 8.9 Immature Gran % (Auto) 4.600 H Neut % (Auto) 61.9 Lymph % (Auto) 26.8 [place] % (Auto) 5.4 Eos % (Auto) 0.4 Baso % (Auto) 0.9 Absolute Neuts (auto) 6.2 Absolute Lymphs (auto) 2.68 Nucleated RBC % 0 Sodium 136 Potassium 3.1 L Chloride 98 Carbon Dioxide 21.5 Anion Gap 17 H BUN 12 Creatinine 0.79 Estim Creat Clear Calc 162.86 Est GFR (MDRD) Non-Af 110 BUN/Creatinine Ratio 14.6 Glucose 427 H Lactic Acid 1.9 Calcium 8.6 Troponin T High Sens 7 NT pro BNP II 51 ABG Data Attestation: I personally reviewed and interpreted this ABG as follows: Interpretation: Venous blood gas reveals a normal pH. Bicarb is slightly elevated. CO2 is normal. He is not retaining. ABG results: ABG 11/07/24 12:07 Specimen Type TAMMIE Sample Site Not entered O2 % 3.0 VBG pH 7.41 VBG pO2 29 VBG HCO3 28 H VBG Total CO2 29 VBG O2 Sat (Calc) 55 VBG Base Excess 3 POC Mix VBG pCO2 Pt Tmp 44.0 O2 Delivery Device Cannula Radiography Chest X-Ray - ED: 2 View, Read by ED Physician, Normal, Heart, Bony Structures, No Acute Disease and Chronic Changes (The only abnormality is hyperaeration.) Diagnostic Testing: Clinical Impression(s) from Imaging Studies Chest X-Ray 11/07/24 10:56 IMPRESSION: Hyperinflation. The lungs are clear. Reading Location: [facility] Management Discussion w/another healthcare provider: Hospitalist (Spoke with Dr. Destini Gold. Patient is a full admit to [facility].) Discharge Plan Dx/Rx/DC Orders Clinical Impression: Acute exacerbation of chronic obstructive pulmonary disease, Acute bronchospasm, Acute respiratory distress, Hypoxia, Type 1 diabetes mellitus with hyperglycemia, Elevated blood pressure reading with diagnosis of hypertension Disposition Disposition: Acute Care Hospital [facility]
[2024-11-07] MEDS: Ipratropium/Albuterol Sulfate 3 ML AMPUL.NEB INHALATION ×3 (11:37→22:16)
[2024-11-07] MEDS: Albuterol 2.5 MG/3 ML VIAL.NEB. 5 MG INHALATION (11:38)
[2024-11-07] MEDS: Ceftriaxone 1 GM/50 ML BAG IV (11:41)
[2024-11-07] MEDS: MethylPREDNISolone 125 MG/2 ML Vial 60 MG IV (11:41)
[2024-11-07] MEDS: 0.9% Normal Saline (500mL Bag) 500 ML 999 ML IV (11:41)
[2024-11-07 11:44] LABS: Absolute Lymphocyte Count 2.68 X10^3/uL (0.83-4.51); Absolute Neutrophil Count 6.2 X10^3/uL (2.0-7.7); Basophil# 0.09 X10^3/uL; Basophil% 0.9 % (0-1); Eosinophil# 0.04 X10^3/uL; Eosinophils% 0.4 % (0-5); Hematocrit 41.9 % (40-54); Hemoglobin 14.1 g/dL (13.0-16.5); Lymphocyte # 2.68 X10^3/ul (0.83-4.51); Lymphocyte % 26.8 % (19-41); Mean Corp Hgb Conc 33.7 g/dL (32-36); Mean Corpuscular Hgb 27.4 pg (27.0-32.0); Mean Corpuscular Volume 81.5 fL (80-94); Mean Platelet Vol. 8.9 fl (6.2-12.0); Monocyte# 0.54 X10^3/uL; Monocyte% 5.4 % (0-10); NRBC Flagged by Analyzer 0 % (0-5); Neutrophil # 6.18 X10^3/uL (2.7-7.7); Neutrophil % 61.9 % (47-70); Platelet Count 295 K/mm3 (150-450); RBC Distribution Width CV 13.7 % (11.6-14.6); RBC Distribution Width SD 40.5 fl (35.1-43.9); Red Blood Count 5.14 M/mm3 (4.6-6.2)
[2024-11-07 12:09] LABS: Blood Gas Specimen Type VEN; O2 Delivery Device Cannula; SITE Not entered; VBG BASE EXCESS 3 mmol/L (-1.0-3.5); VBG Bicarbonate 28 mmol/L (22-26); VBG PO2 29 mmHg (25-40); VBG SO2 55 % (50-70); VBG TCO2 29 mmol/L (23-33); VBG pH 7.41 (7.32-7.42)
[2024-11-07] MEDS: Doxycycline 100 MG in 0.9% Normal Saline (250mL Bag) 250 ML 250 MG IV (12:14)
[2024-11-07 12:22] LABS: Anion Gap 17 (5-15); BUN 12 mg/dL (4-19); BUN/Creat Ratio 14.6 RATIO (10-20); Calcium,Total 8.6 mg/dL (7.6-11.0); Carbon Dioxide 21.5 mmol/L (21.0-32.0); Chloride 98 mmol/L (98-108); Creatinine, Serum 0.79 mg/dL (0.70-1.20); EST Glomerular Filtration Rate 110 (>60); Estimated Creatinine Clearance 162.86 ml/min (50-250); Glucose 427 mg/dL (70-99); Lactic Acid 1.9 mmol/L (0.0-2.0); Potassium 3.1 mmol/L (3.3-5.1); Sodium Level 136 mmol/L (133-145)
[2024-11-07 12:25] LABS: Pro- Brain NATRIURETIC PEPTIDE 51 pg/mL (<=450); Troponin T High Sensitivity 7 ng/L (<=22)
--- NOTE | 2024-11-07 13:16 | HP.PCM.HOS_ITS ---
HPI - General General Date of Admission: 11/07/24 Date of Service: 11/07/24 Chief Complaint: Dyspnea, cough, hypoxia HPI Narrative The patient is a 49 y/o M w/ PMHx: Morbid obesity, HTN, HLD, GERD, PATRICIA on CPAP q HS, Anxiety and Depression, IDDM, COPD/Asthma with allergic rhinitis, Former tobacco use who presents to the [facility] ED on 11/07/24 who presents with persistent cough and dyspnea seen diagnosed with COPD exacerbation at that time placed on steroids however his cough has been worsening and he notes that his oxygenation has been decreased down to 85% at home with no marked improvement prompting eventual ED evaluation be cautious. Both him and his have been diagnosed with influenza A 10/29/24. 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 Additional symptoms he has had include mild nausea, occasional emesis as well as loose stools although these seem to have abated, congestion, headache, decreased appetite. He denies any fevers or chills. He does note that his cough has been significantly productive. Workup in the ED included T97.7, heart rate 117, BP 151/113, respiratory rate 22, 92% on room air with most recent repeat vitals heart rate 100, respiratory rate 18 however when patient ambulated in the ED to the restroom he was noted to be 86% on room air, CBC with WBC 10, he 1 14.1, platelet 295 with increased immature granulocytes, VBG with bicarb 28 otherwise not marked appearing, BMP with potassium 3.1, anion gap 17, BUN/2012/0.79, GFR 110, glucose 427, lactic acid 1.9, troponin initial 7, BNP 51, chest x-ray with chronic changes with no acute cardiopulmonary findings otherwise, rapid SARS COVID/influenza/RSV PCR negative. In the ED patient ministered 1 L normal saline, DuoNeb and albuterol therapies, Solu-Medrol 60 mg IV x 1, Rocephin 1 g IV x 1 and doxycycline 100 mg IV x 1. [facility] Medical History Hearing loss, left Anxiety Depression Diabetes Sleep apnea CPAP (continuous positive airway pressure) dependence COPD (chronic obstructive pulmonary disease) Asthma Myocardial infarct Hypertension Migraines GERD (gastroesophageal reflux disease) PATRICIA (obstructive sleep apnea) Hypertension Diabetes COPD (chronic obstructive pulmonary disease) Home Medications ?Medication ?Instructions ?Recorded ?Last Taken ?Type aspirin 81 mg capsule 81 mg PO DAILY 12/28/2110/24 History losartan 50 mg tablet 50 mg PO DAILY 12/28/21 Unkn own History albuterol sulfate 2.5 mg/3 mL 2.5 mg inhalation Q4H [place] N 01/20/23 Unknown History (0.083 %) solution for nebulization shortness of breat h or wheezing bupropion HCl 150 mg tablet,12 hr 150 mg PO DAILY 12/2501/20/23 History sustained-release epinephrine 0.3 mg/0.3 mL 0.3 ml IM PRN allergic react ion 01/20/23 Unknown History injection, auto-injector albuterol sulfate 90 mcg/actuation 4 puff inhalation Q 4H PRN 06/10/23 Unknown History aerosol inhaler (Ventolin HFA) shortness of breath or wheezing insulin glargine 100 unit/mL (3 22 unit (0.22 mL) subc ut QPM 30 10/30/24 11/06/24 Rx mL) subcutaneous pen (Lantus days #6.6 mL Solostar U-100 Insulin) insulin lispro 100 unit/mL 5 unit (0.05 mL) subcut TID 30 10/30/24 11/06/24 Rx subcutaneous pen (Humalog KwikPen days #4.5 mL (U-100) Insulin) omeprazole 40 mg capsule,delayed 80 mg PO DAILY 11/06/24 History release prednisone 20 mg tablet 20 mg PO DAILY 11/07/2410/24 History Allergy/AdvReac Type Severity Reaction Status Date / Time azithromycin (From Zithromax) Allergy Swelling Verified 11/07/24 10:23 bee venom protein (honey bee) Allergy Hives Verified 11/07/24 10:23 codeine Allergy Swelling Verified 11/07/24 10:23 Latex, Natural Rubber Allergy Anaphylaxis Verified 11/07/24 10:23 ondansetron (From Zofran) Allergy Vomiting Verified 11/07/24 10:23 Family History (Updated 11/07/24 @ 14:[address] Destini Gold MD) Mother Diabetes Heart disease PFO Hypertension CVA (cerebral vascular accident) Father Hypertension CAD (coronary artery disease) Myocardial infarction Heart disease Schizophrenia Parkinson's disease Surgical History History of meniscectomy of right knee History of carpal tunnel repair History of cholecystectomy Social History (Updated 11/07/24 @ 14:[address] Destini Gold MD) household members: spouse housing: house Smoking Status: Former smoker how long ago did patient quit smoking: Quit 2012, smoked ~1 ppd since teen until quit. alcohol intake: never substance use type: does not use ROS ROS Narrative Admission Review of Systems: CONSTITUTIONAL: No weight loss, fever, chills, + weakness or fatigue. HEENT: + Congestion, chronic migraines, headaches. Eyes: No visual loss, blurred vision, double vision or yellow sclerae. Ears, Nose, Throat: No hearing loss, sneezing, congestion, runny nose or sore throat. SKIN: No rash or itching, lesions, wounds. CARDIOVASCULAR: + Orthopnea. No chest pain, chest pressure or chest discomfort, palpitations, edema, syncopal events. RESPIRATORY: + Dyspnea, worse with exertion, productive cough, increased sputum production. No hemoptysis. GASTROINTESTINAL: + Decreased appetite/anorexia, nausea, vomiting, occasional loose stool/diarrhea. No abdominal pain, melena, BRBPR. GENITOURINARY: No dysuria, frequency, urgency or retention. NEUROLOGICAL: + History of chronic migraines, headaches. No dizziness, syncope, paralysis, ataxia, numbness or tingling in the extremities, focal weakness, change in bowel or bladder control, seizure. MUSCULOSKELETAL: + muscle, back pain, joint pain or stiffness. HEMATOLOGIC: No anemia, bleeding or bruising. LYMPHATICS: No enlarged nodes. No history of splenectomy. PSYCHIATRIC: + History of anxiety and depression. ENDOCRINOLOGIC: No reports of sweating, cold or heat intolerance. No polyuria or polydipsia. ALLERGIES: + History of asthma, allergic rhinitis, hives, anaphylaxis. Vital Signs Vital Signs Vital Signs: 11/07/24 10:21 11/07/24 11:41 11/07/24 13:10 Temperature 97.7 F L 98.8 F Temperature Source Oral Temporal Pulse Rate 117 H 100 92 Respiratory Rate 22 H 18 11 L Respiratory Effort Respiratory Depth Respiratory Pattern Normal Blood Pressure 151/113 H 143/80 H Blood Pressure Mean 125 101 Pulse Ox 92 94 Oxygen Delivery Method Room Air Nasal Cannula 11/07/24 13:10 11/07/24 13:10 Temperature Temperature Source Pulse Rate Respiratory Rate Respiratory Effort Short of Breath Labored Respiratory Depth Normal Respiratory Pattern Normal Blood Pressure Blood Pressure Mean Pulse Ox Oxygen Delivery Method Nasal Cannula Weight Weight: 345 lb 9.6 oz Body Mass Index (BMI) 57.4 Physical Exam Narrative Physical Examination: General: Awake, alert, oriented x 3 and cooperative, seated upright in ED bed, fatigued and ill-appearing. Skin: Normal color, normal turgor, no icterus, no cyanosis except occasional stage ecchymoses, abrasion. HEENT: AT/NC, EOMI, PERRLA, mildly dry MM, no carotid bruits, difficult to discern JVD given thickened neck. Lungs: Significantly diminished, greater bases, anterior end expiratory wheezing still noted, mildly increased respiratory rate but no distress, diminished posteriorly especially bases. Heart: Mildly tachycardic with regular rhythm; no gallop, rub audible. Abdomen: Soft, morbidly obese, NTTP, distant BS, difficult to discern distention and HSM given habitus. Extremities: No cyanosis, no clubbing, mild ankle not markedly pitting edema, chronic. Neurological: Patient awake, alert, oriented as noted cognitive function intact; pupils equally reactive to light and accommodation, cranial nerves grossly normal, moving all 4 extremities, no focal deficits, strength moderately to severely globally decreased secondary to acute presentation Psychiatric: Affect appears flat, fatigued, ill-appearing, no acute evidence of depressive or anxiety feelings but does have underlying history. Results Lab / Micro Data 11/07/24 11:32 11/07/24 11:32 Labs: Laboratory Results - last 24 hr 11/07/24 11:32: WBC 10.0, RBC 5.14, Hgb 14.1, Hct 41.9, MCV 81.5, MCH 27.4, MCHC 33.7, RDW Std Deviation 40.5, RDW Coeff of Antonia 13.7, Plt Count 295, MPV 8.9, I mmature Gran % (Auto) 4.600 H, Neut % (Auto) 61.9, Lymph % (Auto) 26.8, [place] % (Auto) 5.4, Eos % (Auto) 0.4, Baso % (Auto) 0.9, Absolute Neuts (auto) 6.2, Absolute Lymphs (auto) 2.68, Nucleated RBC % 0, Sodium 136, Potassium 3.1 L, Chloride 98, Carbon Dioxide 21.5, Anion Gap 17 H, BUN 12, Creatinine 0.79, Estim Creat Clear Calc 162.86, Est GFR (MDRD) Non-Af 110, BUN/Creatinine Ratio 14.6, G lucose 427 H, Lactic Acid 1.9, Calcium 8.6, Troponin T High Sens 7, NT pro BNP II 51 Micro: Microbiology 11/07/24 11:13 Mucosa - Nose SARS-CoV-2, Influenza & RSV (PCR) - Final ABG Data ABG results: ABG 11/07/24 12:07 Specimen Type TAMMIE Sample Site Not entered O2 % 3.0 VBG pH 7.41 VBG pO2 29 VBG HCO3 28 H VBG Total CO2 29 VBG O2 Sat (Calc) 55 VBG Base Excess 3 POC Mix VBG pCO2 Pt Tmp 44.0 O2 Delivery Device Cannula Imaging Radiology Impression Chest X-Ray 11/07/24 10:56 IMPRESSION: Hyperinflation. The lungs are clear. Reading Location: [facility]- Assessment & Plan Assessment/Plan (1) Acute exacerbation of chronic obstructive pulmonary disease: (2) Hypoxia: PLAN: Plan The patient is a 49 y/o M w/ PMHx: Morbid obesity, HTN, HLD, GERD, PATRICIA on CPAP q HS, Anxiety and Depression, IDDM, COPD/Asthma with allergic rhinitis, Former tobacco use who presents to the [facility] ED on 11/07/24 who presents with persistent cough and dyspnea seen diagnosed with COPD exacerbation at that time placed on steroids however his cough has been worsening and he notes that his oxygenation has been decreased down to 85% at home with no marked improvement prompting eventual ED evaluation be cautious. #1. Acute Hypoxia secondary to Acute on Chronic COPD/Asthma exacerbation w/ concern for possible superimposed acute bronchitis with recent influenza A viral syndrome: Will admit to [facility], maintain on oxygen with wean as tolerated to room air, continue ATC duonebs, PRN albuterol, IV methylprednisolone, HOB, IS parameters, will obtain sputum Cx, respiratory viral panel, procalcitonin, will continue on IV Rocephin pending these results and de-escalate as able, given that his is also ill suspect this is primarily viral but want to assure it is not a superimposed bacterial component. #2. Hypokalemia: Admission K+ 3.1, magnesium level requested, supplementation given, repeat level in AM. #3. IDDM with hyperglycemia: Notably elevated blood sugar upon arrival, glucose 427, anion gap 17 however unfortunately with labs these have not been accurate however to be cautious will obtain butyrate level, in the interim obtain hemoglobin A1c, continue home insulin regimen, ADA diet, accu checks w/ ISS. #4. Hypertension: Continue home regimen including losartan, PRN hydralazine. #5. Anxiety and depression: Will continue patient home bupropion regimen. #6. Morbid Obesity: Weight loss and lifestyle changes encouraged. #7. Former tobacco use: Encourage continued tobacco cessation. #8. GERD: Will continue patient on PPI. #9. PATRICIA: CPAP nightly. Patient spouse will bring his own. #10. DVT prophylaxis: Lovenox. #11. CODE status: Patient HCPOA and living will not in place but he notes his who is present would be his medical decision-maker if necessary. Discussed CODE status at length including difference between FULL code, DNR-CCA and DNR-CC status. Following discussions about the differences in these status, requested Full Code status. Advanced Care Planning Face to Face Time: 16 minutes. Charges/Coding Visit Charges Inpatient E&M: 43058 Init Hosp L3 Procedures Hospitalists Procedures: 61356 Advncd Care Plan 30 Min
--- NOTE | 2024-11-07 14:14 | CASEMGMT ---
Care Management Face to Face with patient for initial transition planning/care coordination assessment in the ED. This development writer introduced self and role at [facility]. Patient alert and oriented. Patient willing to participate in assessment and is able to answer all questions appropriately. Patient's , Fay, bedside; permission given to speak in front of patient's . Care providers, pharmacy, and demographics verified. Admitting Diagnosis: Acute exacerbation of chronic obstructive pulmonary disease, Hypoxia Other diagnosis history: Morbid obesity, HTN, HLD, GERD, PATRICIA on CPAP q HS, IDDM, COPD/Asthma with allergic rhinitis, Former tobacco use PCP: Catherine Arzate from [facility] (just switched today) Specialists: none Preferred Pharmacy: [facility] Insurance: [id number] Prescription Benefit: none Living Will/HPOA: none and denies needing information LNOK: , Fay. Son, Triston (but patient doesn't speak with Triston due to Triston's mother) Living Arrangements: lives with in a 2 story apartment with no steps to enter. 12-14 steps to get upstairs. Independent with all ADLs/IADLs at baseline. Transportation: patient drives DME: canes, walker, CPAP, crutches, glucometer and testing strips. HHC: none SNF/Rehab: none Community Resources: none Behavioral Health History: denies, but anxiety and depression shown on chart. Patient goals: Patient wishes to discharge home, denies need for home health care at this time. Patient denies any further needs or concerns at this time. Disposition Plan: admission to acute; RN CM/SW to follow for discharge planning needs that may arise. Tammi Beltran, ALARM SECURITY OR SURVEILLANCE MONITOR, BUS TROLLEY AND TAXI INSTRUCTOR
[2024-11-07 15:13] LABS: Magnesium 1.7 mg/dL (1.5-2.2)
[2024-11-07 16:37] LABS: Troponin T High Sens 2 HR 7 ng/L (<=22)
[2024-11-07] MEDS: 0.9% Normal Saline (1000mL) 1,000 ML 100 ML IV (16:46)
[2024-11-07] MEDS: Insulin Lispro 100 UNIT/ML INSULN.PEN SC ×3 (16:59→20:54)
[2024-11-07] MEDS: Potassium Chloride Oral Tablet 20 MEQ 40 MEQ PO (17:03)
[2024-11-07 17:24] LABS: Bedside Glucose 416 mg/dL (74-106)
[2024-11-07 18:17] LABS: Procalcitonin 0.08 ng/mL (<=0.10)
[2024-11-07] MEDS: Insulin Glargine-YFGN 100 UNIT/ML Pen 22 UNIT SC (20:55)
[2024-11-07] MEDS: Methylprednisolone Sod Succ 40 MG/ML VIAL IV (20:56)
[2024-11-07] MEDS: Enoxaparin 40 MG/0.4 ML Syringe SC (20:56)
[2024-11-07] MEDS: hydrALAZINE 20 MG/ML Vial 10 MG IV (21:03)
[2024-11-07 22:01] LABS: Bedside Glucose 420 mg/dL (74-106)
--- NOTE | 2024-11-07 23:06 | CPS ---
[2216] 4L oxygen bled-in to pt.'s home CPAP unit. Pt. has appropriate oxygen saturations at this time.
[2024-11-08] VITALS (11 sets, daily range): BP systolic 140–158; BP diastolic 65–89; PULSE 79–101; RESP 18–22; TEMP 36.3–36.8; O2SAT 90–96; BMI 54.6
[2024-11-08] MEDS: Methylprednisolone Sod Succ 40 MG/ML VIAL IV ×3 (05:58→22:15)
[2024-11-08] MEDS: 0.9% Saline Lock 10 ML Syringe IV ×3 (05:58→22:15)
[2024-11-08 06:39] LABS: Bedside Glucose 301 mg/dL (74-106)
[2024-11-08 07:18] LABS: Hematocrit 39.8 % (40-54); Hemoglobin 13.2 g/dL (13.0-16.5); Mean Corp Hgb Conc 33.2 g/dL (32-36); Mean Corpuscular Hgb 27.2 pg (27.0-32.0); Mean Corpuscular Volume 81.9 fL (80-94); Mean Platelet Vol. 8.8 fl (6.2-12.0); POSITIVE COUNT YES; POSITIVE MORPHOLOGY YES; Platelet Count 306 K/mm3 (150-450); RBC Distribution Width CV 13.9 % (11.6-14.6); RBC Distribution Width SD 41.1 fl (35.1-43.9); Red Blood Count 4.86 M/mm3 (4.6-6.2); White Blood Count 9.7 K/mm3 (4.4-11.0)
[2024-11-08 07:23] LABS: Differential Indicated MANUAL DIFF
[2024-11-08] MEDS: Ipratropium/Albuterol Sulfate 3 ML AMPUL.NEB INHALATION ×4 (07:32→20:35)
--- NOTE | 2024-11-08 07:44 | PCM.PN.HOSP ---
Reason for Visit Reason for Visit: Diagnoses Chronic obstructive pulmonary disease with (acute) exacerbation (11/07/24) Hypoxemia (11/07/24) Subjective Subjective Patient is a 49-year-old gentleman who presented with with recent diagnosis of influenza A progressive shortness of breath and assessment of COPD/asthma exacerbation made admitted to regular nursing floor for further management Objective Data Objective Data Vital Signs: Vital Signs Temp Pulse Resp BP Pulse Ox O2 Del Method O2 Flow Rate 97.9 F 79 20 H 140/83 H 95 CPAP 4 11/08/24 03:38 11/08/24 03:38 11/08/24 03:38 11/08/24 03:38 11/08/24 03:38 11/08/24 03:38 11/08/24 03:38 Oxygen Flow Rate (L/min) 4 Oxygen Delivery Method CPAP Weight: 153.484 kg Body Mass Index (BMI) 54.6 Intake & Output: Intake and Output for Last 24 Hours 11/06/24 11/07/24 11/08/24 23:59 23:59 23:59 Intake Total 2466.35 / 2466.35 1000 / 1000 Balance 2466.35 / 2466.35 1000 / 1000 Lab / Micro Data 11/08/24 06:40 11/08/24 06:40 Labs: Laboratory Results - last 24 hr 11/07/24 11:32: WBC 10.0, RBC 5.14, Hgb 14.1, Hct 41.9, MCV 81.5, MCH 27.4, MCHC 33.7, RDW Std Deviation 40.5, RDW Coeff of Antonia 13.7, Plt Count 295, MPV 8.9, Immature Gran % (Auto) 4.600 H, Neut % (Auto) 61.9, Lymph % (Auto) 26.8, [place] % (Auto) 5.4, Eos % (Auto) 0.4, Baso % (Auto) 0.9, Absolute Neuts (auto) 6.2, Absolute Lymphs (auto) 2.68, Nucleated RBC % 0, Sodium 136, Potassium 3.1 L, Chloride 98, Carbon Dioxide 21.5, Anion Gap 17 H, BUN 12, Creatinine 0.79, Estim Creat Clear Calc 162.86, Est GFR (MDRD) Non-Af 110, BUN/Creatinine Ratio 14.6, Glucose 427 H, Lactic Acid 1.9, Calcium 8.6, Magnesium 1.7, Troponin T High Sens 7, NT pro BNP II 51 11/07/24 11:37: Procalcitonin 0.08 11/07/24 15:54: Troponin T Hi Sens 2 Hr 7 11/07/24 16:49: POC Glucose 416 H 11/07/24 20:52: POC Glucose 420 H 11/08/24 06:19: POC Glucose 301 H 11/08/24 06:40: WBC 9.7, RBC 4.86, Hgb 13.2, Hct 39.8 L, MCV 81.9, MCH 27.2, MCHC 33.2, RDW Std Deviation 41.1, RDW Coeff of Antonia 13.9, Plt Count 306, MPV 8.8, Neut % (Auto) Not Reportable Micro: Microbiology 11/07/24 19:40 Urine, Clean Catch Legionella Antigen - Final 11/07/24 19:40 Urine, Clean Catch Streptococcus pneumoniae Antigen (M - Final 11/07/24 16:35 Mucosa - Nasopharyngeal Respiratory Panel (PCR) - Final 11/07/24 16:50 Nasal Secretion MRSA (PCR) - Final 11/07/24 11:13 Mucosa - Nose SARS-CoV-2, Influenza & RSV (PCR) - Final ABG Data ABG results: ABG 11/07/24 12:07 Specimen Type TAMMIE Sample Site Not entered O2 % 3.0 VBG pH 7.41 VBG pO2 29 VBG HCO3 28 H VBG Total CO2 29 VBG O2 Sat (Calc) 55 VBG Base Excess 3 POC Mix VBG pCO2 Pt Tmp 44.0 O2 Delivery Device Cannula Radiography Diagnostic Testing: Radiology Impression Chest X-Ray 11/07/24 10:56 IMPRESSION: Hyperinflation. The lungs are clear. Reading Location: [facility] Physical Exam Narrative GENERAL: cooperative HEENT: Atraumatic; normocephalic EYES; Anicteric, Normal Conjunctiva NECK; supple, normal thyroid, RESPIRATORY: Diminished to auscultation with bilateral wheezes CARDIOVASCULAR: Regular S1 S2, GI: soft, normoactive bowel sounds, : No Renal angle tenderness; EXTREMITIES: No edema, no clubbing, MUSCULOSKELETAL: no muscle wasting NEURO: Awake; no lateralizing signs. SKIN: No Rash PSYCH; Flat affect Assessment & Plan Assessment/Plan (1) Acute exacerbation of chronic obstructive pulmonary disease: (2) Hypoxia: PLAN: Plan Patient is a 49-year-old gentleman who presented with with recent diagnosis of influenza A progressive shortness of breath and hypoxia with oxygen saturation in the mid 70s and assessment of COPD/asthma exacerbation made admitted to regular nursing floor for further management 1. Acute hypoxia ? Secondary to COPD/asthma/viral bronchitis. Patient admitted to regular nursing floor treatment initiated with bronchodilator therapy, systemic steroid and antibiotics with supplemental oxygen titrated to keep saturation greater than 90 2. Hypokalemia -Corrected per protocol 3. Hypertension ? Blood pressure controlled, home medications continued with dose adjustment as needed 4. Class III obesity with BMI of 54.6 5. Diabetes mellitus type 2 uncontrolled with hyperglycemia Patient glucose level on admission was 350. Did continue with patient home medication regimen in addition to Accu-Cheks before meals and at bedtime with sliding scale coverage 6. Hypertension - Blood pressure controlled, home medications continued with dose adjustment as needed 7. Dyslipidemia -Patient is on statin therapy, continued at home dose 8. GERD -Continue home PPI 9. PATRICIA - Consistent use of PAP therapy encouraged 10. Class III obesity with BMI of 55 ? Complicating care weight loss advised 10. Depression ? Patient is on bupropion did continue 11. DVT prophylaxis ?Enoxaparin Charges/Coding Visit Charges Inpatient E&M: 57903 Subs Hosp L2
[2024-11-08 07:50] LABS: Hemoglobin A1c 13.6 % (<=5.6)
[2024-11-08 07:54] LABS: AST(SGOT) 18 U/L (<=37); Alanine Aminotransfer ALT/SGPT 29 U/L (<=46); Albumin, Serum 3.3 g/dL (3.5-5.0); Alkaline Phosphatase 93 U/L (40-129); Anion Gap 18 (5-15); BUN 9 mg/dL (4-19); Calcium,Total 8.4 mg/dL (7.6-11.0); Carbon Dioxide 18.4 mmol/L (21.0-32.0); Chloride 102 mmol/L (98-108); Creatinine, Serum 0.65 mg/dL (0.70-1.20); EST Glomerular Filtration Rate 117 (>60); Estimated Creatinine Clearance 198.07 ml/min (50-250); Globulin 3.3 g/dL (2.2-4.2); Glucose 350 mg/dL (70-99); Potassium 3.6 mmol/L (3.3-5.1); Protein, Total 6.7 g/dL (5.9-8.4); Sodium Level 138 mmol/L (133-145); Total Bilirubin 0.35 mg/dL (0.00-1.30)
[2024-11-08 09:01] LABS: Blast 1 % (0-0); Lymphocyte 20 % (19-41); Monocyte 1 % (0-10); Myelocyte 1 % (0-0); Neutrophil-Segmented 77 % (47-70); Total Cells Counted 100 (MANUAL DIFF)
[2024-11-08 09:02] LABS: Platelet Estimate ADEQUATE (ADEQ); Red Cell Morphology NORM C+C NORMAL (NORM C&C)
[2024-11-08 09:03] LABS: Absolute Neutrophil Count 7.5 X10^3/uL (2.0-7.7)
[2024-11-08 09:04] LABS: Pathologist Review May foll
[2024-11-08] MEDS: Aspirin 81 MG TAB.CHEW PO (09:05)
[2024-11-08] MEDS: Insulin Lispro 100 UNIT/ML INSULN.PEN SC ×5 (09:06→16:39)
[2024-11-08] MEDS: Ceftriaxone 1 GM/50 ML BAG IV (10:06)
[2024-11-08] MEDS: Losartan Potassium 50 MG Tablet PO (10:07)
[2024-11-08] MEDS: Enoxaparin 40 MG/0.4 ML Syringe SC ×2 (10:07→22:15)
[2024-11-08] MEDS: buPROPion (SR) 150 MG Tablet.SA PO (10:07)
[2024-11-08] MEDS: Pantoprazole Sodium 40 MG Tablet 80 MG PO (10:07)
--- NOTE | 2024-11-08 11:38 | CASEMGMT ---
Social Work SW received handoff from ED SW. Pt is requesting financial assistance. SW met with pt and his and introduced self and role of SW. Pt states that he does not qualify for [facility] HCAP program but does have financial concerns with home situation. SW provided pt with written information from community resources including [employer], [employer] card, [employer], [employer] and prescription assistance. Pt appreciative of information and denies any further needs at this time. ELVA Wilkerson
[2024-11-08 11:43] LABS: Bedside Glucose 331 mg/dL (74-106)
--- NOTE | 2024-11-08 11:49 | NURSING ---
tapered O2 to 2 L NC @ 94%. Turned to RA O2 between 95 & 93%. Left Off on RA
[2024-11-08] MEDS: Insulin Glargine-YFGN 100 UNIT/ML Pen 22 UNIT SC ×2 (14:46→16:42)
[2024-11-08] MEDS: Insulin Lispro 100 UNIT/ML INSULN.PEN 10 UNIT SC (16:40)
[2024-11-08 17:05] LABS: Bedside Glucose 392 mg/dL (74-106)
[2024-11-08 22:03] LABS: Bedside Glucose 451 mg/dL (74-106)
[2024-11-08 22:35] LABS: Glucose 526 mg/dL (70-99)
[2024-11-09] VITALS (14 sets, daily range): BP systolic 139–158; BP diastolic 75–92; PULSE 65–95; RESP 16–24; TEMP 36.5–37; O2SAT 90–95; BMI 54.9
[2024-11-09] MEDS: Insulin Lispro 100 UNIT/ML INSULN.PEN 20 UNIT SC (00:14)
[2024-11-09 06:24] LABS: Hematocrit 40.6 % (40-54); Hemoglobin 13.6 g/dL (13.0-16.5); Mean Corp Hgb Conc 33.5 g/dL (32-36); Mean Corpuscular Hgb 27.5 pg (27.0-32.0); Mean Platelet Vol. 9.1 fl (6.2-12.0); POSITIVE COUNT YES; POSITIVE MORPHOLOGY YES; Platelet Count 298 K/mm3 (150-450); RBC Distribution Width CV 13.6 % (11.6-14.6); RBC Distribution Width SD 40.4 fl (35.1-43.9); Red Blood Count 4.95 M/mm3 (4.6-6.2)
[2024-11-09 06:30] LABS: Magnesium 2.4 mg/dL (1.5-2.2); Phosphorus 3.1 mg/dL (2.7-4.5)
[2024-11-09 06:32] LABS: Anion Gap 13 (5-15); BUN 14 mg/dL (4-19); BUN/Creat Ratio 21.2 RATIO (10-20); Calcium,Total 8.6 mg/dL (7.6-11.0); Carbon Dioxide 22.6 mmol/L (21.0-32.0); Chloride 103 mmol/L (98-108); Creatinine, Serum 0.66 mg/dL (0.70-1.20); EST Glomerular Filtration Rate 116 (>60); Estimated Creatinine Clearance 196.33 ml/min (50-250); Glucose 341 mg/dL (70-99); Sodium Level 139 mmol/L (133-145)
[2024-11-09 06:42] LABS: Differential Indicated MANUAL DIFF
[2024-11-09] MEDS: Methylprednisolone Sod Succ 40 MG/ML VIAL IV (06:47)
--- NOTE | 2024-11-09 07:37 | PCM.PN.HOSP ---
Reason for Visit Reason for Visit: Diagnoses Chronic obstructive pulmonary disease with (acute) exacerbation (11/07/24) Hypoxemia (11/07/24) Subjective Subjective Patient blood glucose markedly elevated as a result of concomitant use of steroids did decrease steroid dose and adjusted insulin regimen. Patient seen continues to experience persistent cough Objective Data Objective Data Vital Signs: Vital Signs Temp Pulse Resp BP Pulse Ox O2 Del Method O2 Flow Rate 98.6 F 65 18 145/90 H 94 CPAP 2 11/09/24 06:35 11/09/24 06:35 11/09/24 06:35 11/09/24 06:35 11/09/24 06:35 11/09/24 06:38 11/09/24 06:38 Oxygen Flow Rate (L/min) 2 Oxygen Delivery Method CPAP Weight: 155.1 kg Body Mass Index (BMI) 54.9 Intake & Output: Intake and Output for Last 24 Hours 11/07/24 11/08/24 11/09/24 23:59 23:59 23:59 Intake Total 2466.35 / 2466.35 2049 500 / 500 Balance 2466.35 / 2466.35 2049 500 / 500 Lab / Micro Data 11/09/24 05:34 11/09/24 05:34 Labs: Laboratory Results - last 24 hr 11/08/24 06:40: Absolute Neuts (auto) 7.5, Absolute Lymphs (auto) 1.90, Total Counted 100, Neutrophils % (Manual) 77 H, Lymphocytes % (Manual) 20, Monocytes % (Manual) 1, Myelocytes % 1 H, Blast Cells % 1 H*, Diff Path Review November, Platelet Estimate ADEQUATE, RBC Morphology NORM C+C, Sodium 138, Potassium 3.6, Chloride 102, Carbon Dioxide 18.4 L, Anion Gap 18 H, BUN 9, Creatinine 0.65 L, Estim Creat Clear Calc 198.07, Est GFR (MDRD) Non-Af 117, BUN/Creatinine Ratio 14.0, Glucose 350 H, Hemoglobin A1c 13.6 H, Calcium 8.4, Total Bilirubin 0.35, AST 18, ALT 29, Alkaline Phosphatase 93, Total Protein 6.7, Albumin 3.3 L, Globulin 3.3, Albumin/Globulin Ratio 1.0 11/08/24 11:17: POC Glucose 331 H 11/08/24 16:37: POC Glucose 392 H 11/08/24 21:41: POC Glucose 451 H* 11/08/24 21:44: Glucose 526 H* 11/09/24 05:34: WBC 11.0, RBC 4.95, Hgb 13.6, Hct 40.6, MCV 82.0, MCH 27.5, MCHC 33.5, RDW Std Deviation 40.4, RDW Coeff of Antonia 13.6, Plt Count 298, MPV 9.1, Neut % (Auto) Not Reportable, Sodium 139, Potassium 4.0, Chloride 103, Carbon Dioxide 22.6, Anion Gap 13, BUN 14, Creatinine 0.66 L, Estim Creat Clear Calc 196.33, Est GFR (MDRD) Non-Af 116, BUN/Creatinine Ratio 21.2 H, Glucose 341 H, Calcium 8.6, Phosphorus 3.1, Magnesium 2.4 H Micro: Microbiology 11/07/24 19:40 Sputum, Expectorated/Coughed Gram Stain - Final 11/07/24 19:40 Urine, Clean Catch Legionella Antigen - Final 11/07/24 19:40 Urine, Clean Catch Streptococcus pneumoniae Antigen (M - Final 11/07/24 16:35 Mucosa - Nasopharyngeal Respiratory Panel (PCR) - Final 11/07/24 16:50 Nasal Secretion MRSA (PCR) - Final 11/07/24 11:13 Mucosa - Nose SARS-CoV-2, Influenza & RSV (PCR) - Final Physical Exam Narrative GENERAL: cooperative HEENT: Atraumatic; normocephalic EYES; Anicteric, Normal Conjunctiva NECK; supple, normal thyroid, RESPIRATORY: Diminished to auscultation with bilateral wheezes CARDIOVASCULAR: Regular S1 S2, GI: soft, normoactive bowel sounds, : No Renal angle tenderness; EXTREMITIES: No edema, no clubbing, MUSCULOSKELETAL: no muscle wasting NEURO: Awake; no lateralizing signs. SKIN: No Rash PSYCH; Flat affect Assessment & Plan Assessment/Plan (1) Acute exacerbation of chronic obstructive pulmonary disease: (2) Hypoxia: PLAN: Plan Patient is a 49-year-old gentleman who presented with with recent diagnosis of influenza A progressive shortness of breath and hypoxia with oxygen saturation in the mid 70s and assessment of COPD/asthma exacerbation made admitted to regular nursing floor for further management 1. Acute hypoxia ? Secondary to COPD/asthma/viral bronchitis. Patient admitted to regular nursing floor treatment initiated with bronchodilator therapy, systemic steroid and antibiotics with supplemental oxygen titrated to keep saturation greater than 90 ? 11/09/2024; patient down to 2 L flow per minute. Patient however continues to experience persistent cough 2. Hypokalemia -Corrected per protocol 3. Hypertension ? Blood pressure controlled, home medications continued with dose adjustment as needed 4. Class III obesity with BMI of 54.6 5. Diabetes mellitus type 2 uncontrolled with hyperglycemia Patient glucose level on admission was 350. Did continue with patient home medication regimen in addition to Accu-Cheks before meals and at bedtime with sliding scale coverage ? 11/09/2024; patient blood glucose levels markedly elevated due to concomitant use of steroid. Did decrease patient's steroid dose. Did increase patient long-acting as well as scheduled Premeal insulin regimen. 6. Hypertension - Blood pressure controlled, home medications continued with dose adjustment as needed 7. Dyslipidemia -Patient is on statin therapy, continued at home dose 8. GERD -Continue home PPI 9. PATRICIA - Consistent use of PAP therapy encouraged 10. Class III obesity with BMI of 55 ? Complicating care weight loss advised 10. Depression ? Patient is on bupropion did continue 11. DVT prophylaxis ?Enoxaparin Charges/Coding Visit Charges Inpatient E&M: 88892 Subs Hosp L2
[2024-11-09] MEDS: Insulin Lispro 100 UNIT/ML INSULN.PEN SC ×4 (07:55→21:36)
[2024-11-09] MEDS: Insulin Glargine-YFGN 100 UNIT/ML Pen 40 UNIT SC ×2 (07:56→16:35)
[2024-11-09] MEDS: Insulin Lispro 100 UNIT/ML INSULN.PEN 15 UNIT SC ×3 (07:57→16:34)
[2024-11-09] MEDS: Losartan Potassium 50 MG Tablet PO (08:07)
[2024-11-09] MEDS: predniSONE 20 MG Tablet 40 MG PO (08:07)
[2024-11-09] MEDS: Aspirin 81 MG TAB.CHEW PO (08:07)
[2024-11-09] MEDS: Pantoprazole Sodium 40 MG Tablet 80 MG PO (08:07)
[2024-11-09] MEDS: Enoxaparin 40 MG/0.4 ML Syringe SC ×2 (08:07→21:33)
[2024-11-09] MEDS: buPROPion (SR) 150 MG Tablet.SA PO (08:07)
[2024-11-09 08:10] LABS: Lymphocyte 20 % (19-41); Monocyte 2 % (0-10); Neutrophil-Segmented 78 % (47-70); Platelet Estimate ADEQUATE (ADEQ); Red Cell Morphology NORM C+C NORMAL (NORM C&C); Total Cells Counted 100 (MANUAL DIFF)
[2024-11-09 08:11] LABS: Absolute Lymphocyte Count 2.19 X10^3/uL (0.83-4.51); Absolute Neutrophil Count 8.6 X10^3/uL (2.0-7.7)
[2024-11-09 08:17] LABS: Bedside Glucose 339 mg/dL (74-106)
[2024-11-09] MEDS: 0.9% Normal Saline (100mL Bag) 100 ML 15 ML IV (10:33)
[2024-11-09] MEDS: 0.9% Saline Lock 10 ML Syringe IV (10:33)
[2024-11-09] MEDS: Ceftriaxone 1 GM/50 ML BAG IV (10:34)
[2024-11-09] MEDS: Ipratropium/Albuterol Sulfate 3 ML AMPUL.NEB INHALATION ×3 (10:41→19:03)
[2024-11-09 11:33] LABS: Bedside Glucose 322 mg/dL (74-106)
[2024-11-09] MEDS: guaiFENesin 10 ML UDC (200MG/10ML) 20 ML PO ×2 (13:52→21:45)
--- NOTE | 2024-11-09 15:05 | CASEMGMT ---
SYLVAIN CM into pt room, pt lying in bed with at bedside. Pt states he has a pox at home. Pt has a cpap but no oxygen. Should pt qualify for home oxygen, he would like [employer] after a local verbal list of DME providers were given. Pt denies any further homegoing needs at this time.
[2024-11-09 17:17] LABS: Bedside Glucose 363 mg/dL (74-106)
[2024-11-09 22:47] LABS: Bedside Glucose 311 mg/dL (74-106)
[2024-11-10] VITALS (9 sets, daily range): BP systolic 112–147; BP diastolic 64–92; PULSE 66–95; RESP 15–21; TEMP 36.2–37; O2SAT 92–95; BMI 55.0
[2024-11-10 06:16] LABS: Hematocrit 40.1 % (40-54); Hemoglobin 13.4 g/dL (13.0-16.5); Mean Corp Hgb Conc 33.4 g/dL (32-36); Mean Corpuscular Hgb 27.2 pg (27.0-32.0); Mean Corpuscular Volume 81.3 fL (80-94); Mean Platelet Vol. 8.8 fl (6.2-12.0); POSITIVE COUNT YES; POSITIVE MORPHOLOGY YES; Platelet Count 247 K/mm3 (150-450); RBC Distribution Width CV 13.8 % (11.6-14.6); RBC Distribution Width SD 40.3 fl (35.1-43.9); Red Blood Count 4.93 M/mm3 (4.6-6.2); White Blood Count 10.4 K/mm3 (4.4-11.0)
[2024-11-10 06:25] LABS: Differential Indicated MANUAL DIFF
[2024-11-10 06:35] LABS: NRBC Flagged by Analyzer 0 % (0-5)
[2024-11-10] MEDS: Insulin Glargine-YFGN 100 UNIT/ML Pen 40 UNIT SC (06:35)
[2024-11-10] MEDS: Insulin Lispro 100 UNIT/ML INSULN.PEN SC ×4 (06:36→22:00)
[2024-11-10 06:58] LABS: Bedside Glucose 229 mg/dL (74-106)
[2024-11-10 06:59] LABS: Anion Gap 12 (5-15); BUN 15 mg/dL (4-19); Calcium,Total 8.4 mg/dL (7.6-11.0); Carbon Dioxide 24.3 mmol/L (21.0-32.0); Chloride 103 mmol/L (98-108); EST Glomerular Filtration Rate 114 (>60); Estimated Creatinine Clearance 185.19 ml/min (50-250); Glucose 249 mg/dL (70-99); Potassium 3.1 mmol/L (3.3-5.1); Sodium Level 139 mmol/L (133-145)
[2024-11-10 07:19] LABS: Neutrophil-Segmented 61 % (47-70); Total Cells Counted 100 (MANUAL DIFF)
[2024-11-10 07:20] LABS: Lymphocyte 33 % (19-41); Metamyelocyte 1 % (0-1); Monocyte 5 % (0-10); Platelet Estimate ADEQUATE (ADEQ); Red Cell Morphology NORM C+C NORMAL (NORM C&C)
[2024-11-10 07:23] LABS: Absolute Neutrophil Count 6.3 X10^3/uL (2.0-7.7)
[2024-11-10 07:24] LABS: Absolute Lymphocyte Count 3.43 X10^3/uL (0.83-4.51)
[2024-11-10] MEDS: Aspirin 81 MG TAB.CHEW PO (08:51)
[2024-11-10] MEDS: predniSONE 20 MG Tablet 40 MG PO (08:53)
[2024-11-10] MEDS: Insulin Lispro 100 UNIT/ML INSULN.PEN 15 UNIT SC ×2 (08:53→12:19)
[2024-11-10] MEDS: guaiFENesin 10 ML UDC (200MG/10ML) 20 ML PO ×2 (08:55→12:58)
[2024-11-10] MEDS: Pantoprazole Sodium 40 MG Tablet 80 MG PO (09:47)
[2024-11-10] MEDS: Enoxaparin 40 MG/0.4 ML Syringe SC ×2 (09:47→21:55)
[2024-11-10] MEDS: Losartan Potassium 50 MG Tablet PO (09:47)
[2024-11-10] MEDS: Ceftriaxone 1 GM/50 ML BAG IV (09:48)
[2024-11-10] MEDS: 0.9% Saline Lock 10 ML Syringe IV (09:48)
[2024-11-10] MEDS: buPROPion (SR) 150 MG Tablet.SA PO (09:48)
[2024-11-10 11:47] LABS: Bedside Glucose 209 mg/dL (74-106)
[2024-11-10] MEDS: Ipratropium/Albuterol Sulfate 3 ML AMPUL.NEB INHALATION ×3 (12:50→19:44)
--- NOTE | 2024-11-10 15:55 | PN.HOSP_ITS ---
Reason for Visit Reason for Visit: Diagnoses Chronic obstructive pulmonary disease with (acute) exacerbation (11/07/24) Hypoxemia (11/07/24) Objective Data Objective Data Vital Signs: Vital Signs Temp Pulse Resp BP Pulse Ox O2 Del Method O2 Flow Rate 98.6 F 93 16 147/92 H 94 Room Air 93 11/10/24 12:21 11/10/24 15:47 11/10/24 15:47 11/10/24 12:21 11/10/24 12:51 11/10/24 14:34 11/10/24 06:39 Oxygen Flow Rate (L/min) 93 Oxygen Delivery Method Room Air Weight: 342 lb 2.519 oz Body Mass Index (BMI) 55.0 Intake & Output: Intake and Output for Last 24 Hours 11/08/24 11/09/24 11/10/24 23:59 23:59 23:59 Intake Total 2049 559.00 / 1359.00 1350 / 1350 Balance 2049 559.00 / 1359.00 1350 / 1350 Lab / Micro Data 11/10/24 05:49 11/10/24 05:49 Labs: Laboratory Results - last 24 hr 11/09/24 16:32: POC Glucose 363 H 11/09/24 21:35: POC Glucose 311 H 11/10/24 05:49: WBC 10.4, RBC 4.93, Hgb 13.4, Hct 40.1, MCV 81.3, MCH 27.2, MCHC 33.4, RDW Std Deviation 40.3, RDW Coeff of Antonia 13.8, Plt Count 247, MPV 8.8, Immature Gran % (Auto) NURSE CHEMICAL DEPENDENCY, Neut % (Auto) NURSE CHEMICAL DEPENDENCY, Lymph % (Auto) NURSE CHEMICAL DEPENDENCY, [place] % (Auto) NURSE CHEMICAL DEPENDENCY, Eos % (Auto) NURSE CHEMICAL DEPENDENCY, Baso % (Auto) NURSE CHEMICAL DEPENDENCY, Absolute Neuts (auto) 6.3, Absolute Lymphs (auto) 3.43, Total Counted 100, Neutrophils % (Manual) 61, Lymphocytes % (Manual) 33, Monocytes % (Manual) 5, Metamyelocytes % 1, Nucleated RBC % 0, Platelet Estimate ADEQUATE, RBC Morphology NORM C+C, Sodium 139, Potassium 3.1 L , Chloride 103, Carbon Dioxide 24.3, Anion Gap 12, BUN 15, Creatinine 0.70, Estim Creat Clear Calc 185.19, Est GFR (MDRD) Non-Af 114, BUN/Creatinine Ratio 22.0 H, Glucose 249 H, Calcium 8.4 11/10/24 06:34: POC Glucose 229 H 11/10/24 11:14: POC Glucose 209 H Micro: Microbiology 11/07/24 19:40 Sputum, Expectorated/Coughed Gram Stain - Final 11/07/24 19:40 Sputum, Expectorated/Coughed Respiratory Culture - Preliminary Gram negative shannon Streptococcus agalactiae (B) Staphylococcus aureus Presumptive C albicans 11/07/24 19:40 Urine, Clean Catch Legionella Antigen - Final 11/07/24 19:40 Urine, Clean Catch Streptococcus pneumoniae Antigen (M - Final 11/07/24 16:35 Mucosa - Nasopharyngeal Respiratory Panel (PCR) - Final 11/07/24 16:50 Nasal Secretion MRSA (PCR) - Final 11/07/24 11:13 Mucosa - Nose SARS-CoV-2, Influenza & RSV (PCR) - Final Physical Exam Narrative Seen and examined. Patient is still short of breath with wheezing and cough. Physical exam General: Alert, Oriented x3, Cooperative, morbid obesity BMI 55.2 kg/m? HEENT: Atraumatic, PERRLA, EOMI, Normocephalic Oral: No Gingival or Mucosal Lesions/ Ulcerations Neck: Supple, No JVD, Negative Carotid Bruits Chest wall/Lungs: Air entry diminished in bilateral lung bases. Bilateral expiratory wheezing and rhonchi Cardiovascular: Regular rate, Regular Rhythm, Normal S1, Normal S2, No M/G/R Abdomen: Bowel Sounds Present, Soft, Non Tender, Non-Distended : No dysuria. No renal angle tenderness. No suprapubic tenderness. Extremities: No edema, Capillary Refill Less than 3 Seconds Skin: No rashes, No breakdown Musculoskeletal: No Tenderness to Palpation of Joints or Extremities Neurological: Cranial nerves II-XII grossly intact, DTR 2+/4. No acute focal neurological deficit. Psych/Mental Status: Normal Affect, Appropriate. Assessment & Plan Assessment/Plan (1) Acute exacerbation of chronic obstructive pulmonary disease: (2) Hypoxia: PLAN: Plan Patient is a 49-year-old gentleman who presented with with recent diagnosis of influenza A progressive shortness of breath and hypoxia with oxygen saturation in the mid 70s and assessment of COPD/asthma exacerbation made admitted to regular nursing floor for further management 1. Acute hypoxia ? Secondary to COPD/asthma/viral bronchitis. Patient admitted to regular nursing floor treatment initiated with bronchodilator therapy, systemic steroid and antibiotics with supplemental oxygen titrated to keep saturation greater than 90 ? 11/09/2024; patient down to 2 L flow per minute. Patient however continues to experience persistent cough 11/10: Prematurity and culture growing gram-negative shannon, group B strep and staph. Chest x-ray shows no consolidation and reported negative. Sputum culture microinjury may be normal colonization. MRSA nasal screen negative. Triple PCR for SARS-CoV-2, flu and RSV are negative. Urinary antigens negative. 2. Hypokalemia -Corrected per protocol 11/10: Mild hypokalemia K3.1. Potassium replaced 3. Hypertension ? Blood pressure controlled, home medications continued with dose adjustment as needed 4. Class III obesity with BMI of 54.6 5. Diabetes mellitus type 2 uncontrolled with hyperglycemia Patient glucose level on admission was 350. Did continue with patient home medication regimen in addition to Accu-Cheks before meals and at bedtime with sliding scale coverage ? 11/09/2024; patient blood glucose levels markedly elevated due to concomitant use of steroid. Did decrease patient's steroid dose. Did increase patient long-acting as well as scheduled Premeal insulin regimen. 11/10: Patient has hyperglycemia. Patient was put back on IV Solu-Medrol and therefore Humalog and Lantus insulin also increased. 6. Hypertension - Blood pressure controlled, home medications continued with dose adjustment as needed 7. Dyslipidemia -Patient is on statin therapy, continued at home dose 8. GERD -Continue home PPI 9. PATRICIA - Consistent use of PAP therapy encouraged 10. Class III obesity with BMI of 55 ? Complicating care weight loss advised 10. Depression ? Patient is on bupropion did continue 11. DVT prophylaxis ?Enoxaparin Charges/Coding Visit Charges Inpatient E&M: 05384 Subs Hosp L2
[2024-11-10 16:41] LABS: Bedside Glucose 429 mg/dL (74-106)
[2024-11-10] MEDS: guaiFENesin/D-Methorphan TAB.SR.12H 2 TABLET PO ×2 (17:09→21:54)
[2024-11-10] MEDS: Potassium Chloride Oral Tablet 20 MEQ 40 MEQ PO ×2 (17:09→20:30)
[2024-11-10] MEDS: Methylprednisolone Sod Succ 40 MG/ML VIAL IV (17:10)
[2024-11-10] MEDS: Insulin Lispro 100 UNIT/ML INSULN.PEN 20 UNIT SC (17:10)
[2024-11-10 23:40] LABS: Bedside Glucose 382 mg/dL (74-106)
[2024-11-11] VITALS (7 sets, daily range): BP systolic 140–150; BP diastolic 83–92; PULSE 73–103; RESP 16–22; TEMP 36.2–36.8; O2SAT 91–99; BMI 55.0
[2024-11-11] MEDS: Methylprednisolone Sod Succ 40 MG/ML VIAL IV (00:14)
[2024-11-11 06:32] LABS: Absolute Lymphocyte Count 1.19 X10^3/uL (0.83-4.51); Absolute Neutrophil Count 7.5 X10^3/uL (2.0-7.7); Basophil# 0.04 X10^3/uL; Basophil% 0.4 % (0-1); Hemoglobin 14.3 g/dL (13.0-16.5); Lymphocyte # 1.19 X10^3/ul (0.83-4.51); Lymphocyte % 12.5 % (19-41); Mean Corp Hgb Conc 33.3 g/dL (32-36); Mean Corpuscular Hgb 27.6 pg (27.0-32.0); Mean Corpuscular Volume 82.9 fL (80-94); Mean Platelet Vol. 9.3 fl (6.2-12.0); Monocyte# 0.33 X10^3/uL; Monocyte% 3.5 % (0-10); NRBC Flagged by Analyzer 0 % (0-5); Neutrophil # 7.54 X10^3/uL (2.7-7.7); Neutrophil % 79.5 % (47-70); Platelet Count 283 K/mm3 (150-450); RBC Distribution Width CV 14.2 % (11.6-14.6); RBC Distribution Width SD 42.4 fl (35.1-43.9); Red Blood Count 5.19 M/mm3 (4.6-6.2); White Blood Count 9.5 K/mm3 (4.4-11.0)
[2024-11-11] MEDS: Insulin Lispro 100 UNIT/ML INSULN.PEN SC ×2 (06:51→12:22)
[2024-11-11] MEDS: Insulin Glargine-YFGN 100 UNIT/ML Pen 45 UNIT SC (06:52)
[2024-11-11 07:11] LABS: Bedside Glucose 312 mg/dL (74-106)
[2024-11-11 07:13] LABS: Anion Gap 11 (5-15); BUN 9 mg/dL (4-19); BUN/Creat Ratio 13.9 RATIO (10-20); Calcium,Total 8.2 mg/dL (7.6-11.0); Carbon Dioxide 25.2 mmol/L (21.0-32.0); Chloride 103 mmol/L (98-108); Creatinine, Serum 0.65 mg/dL (0.70-1.20); EST Glomerular Filtration Rate 117 (>60); Estimated Creatinine Clearance 199.59 ml/min (50-250); Glucose 313 mg/dL (70-99); Potassium 3.8 mmol/L (3.3-5.1); Sodium Level 139 mmol/L (133-145)
[2024-11-11] MEDS: Ipratropium/Albuterol Sulfate 3 ML AMPUL.NEB INHALATION ×2 (07:39→11:26)
--- NOTE | 2024-11-11 09:37 | DCINST_ITS ---
Discharge Instructions Diet Discharge Diet: Low fat / Low cholesterol and 1800 Calorie Control Diet DC O2, CPAP, BIPAP needs Home O2 Discharge instructions: Yes Type of respiratory needs?: Oxygen Oxygen frequency: With Sleeping Oxygen liters per minute when sleepin Dressing / Incision Discharge Activity: Return to Normal Activity Weight Bearing Status: Weight bearing as tolerated Dressing / Incision Call your doctor if you observe: Fever of 101 or Higher, Coldness, Increased Pain, Numbness or Tingling, Change in Color, Inability to urinate, Inability to have a bowel movement, Shortness of breath, Dizziness, Fainting spells, Swelling in the ankles, Chest pain, Prolonged hiccupping, Increased palpitations (irregular heartbeat) and Calf discomfort Follow Up Care When: IN 2 WEEKS Test Results: Test results from this visit will be discussed in further detail at your follow- up appointment, if applicable. Discharge Plan Admission Admit Date/Time: 11/07/24 13:37 Attending Provider: Patel Yeager Primary Care Provider: Linwood Jules Consulting Providers: Destini Gold; Arnol Perez Discharge Orders/Prescriptions Prescriptions: New dextromethorphan-guaifenesin 60-1,200 mg tablet extended release 12 hr 1 tab PO BID 7 Days Qty: 14 0RF insulin lispro [Humalog KwikPen Insulin] 100 unit/mL Insulin Pen See Protocol subcut ACHS Qty: 0 0RF Protocol: 5. Sliding Scale Insulin High Dosing Condition: 150-209 mg/dl = 3 units Condition: 210-259 mg/dl = 6 units Condition: 260-324 mg/dl = 9 units Condition: 325-374 mg/dl = 12 units Condition: 375-409 mg/dl = 14 units Condition: 410-449 mg/dl = 16 units Condition: Greater than 449 call physician Protocol Text: Suggested for: - Patients on Total Daily Insulin Dose of 81-120 units - Very insulin resistant patients HIGH DOSING ALGORITHM prednisone 10 mg tablet 10 mg PO DAILY Qty: 30 0RF Rx Instructions: 40 mg for 3 days 30 mg for 3 days, 20 mg for 3 days,and 10 mg for 3 days Continued aspirin 81 mg Capsule 81 mg PO DAILY albuterol sulfate 2.5 mg /3 mL (0.083 %) solution for nebulization 2.5 mg inhalation Q4H PRN (Reason: shortness of breath or wheezing) Patient Comments: USE 1 VIAL IN NEBULIZER EVERY 4 HOURS NEEDED FOR WHEEZING OR SHORTNESS OF BREATH. USE OVER 5 TO 15 MINUTES. bupropion HCl 150 mg tablet sustained-release 12 hr 150 mg PO DAILY Patient Comments: SUPPOSE TO RESTART HAS NOT. epinephrine 0.3 mg/0.3 mL auto-injector 0.3 ml IM PRN Patient Comments: INJECT CONTENTS OF 1 PEN NEEDED FOR ALLERGIC REACTION. albuterol sulfate [Ventolin HFA] 90 mcg/actuation HFA aerosol inhaler 4 puff INHALATION Q4H PRN (Reason: shortness of breath or wheezing) Patient Comments: pt states my pulmonary doctor says take 4 puffs Rx Instructions: INHALE 2 PUFFS BY MOUTH EVERY 4 HOURS NEEDED FOR WHEEZING OR SHORTNESS OF BREATH prednisone 20 mg tablet 20 mg PO DAILY Changed omeprazole 40 mg capsule,delayed release(DR/EC) 40 mg PO DAILY 30 Days Qty: 0 0RF insulin lispro [Humalog KwikPen Insulin] 100 unit/mL insulin pen 20 unit subcut TID 30 Days Qty: 4.5 5RF insulin glargine [Lantus Solostar U-100 Insulin] 100 unit/mL (3 mL) insulin pen 30 unit subcut BID 30 Days Qty: 15 4RF Rx Instructions: Hold if glucose less than 130 mg/dl Referrals / Follow Up: Linwood Jules MD [Primary Care Provider] - In 1 Week Jl Castrejon DO [Med Staff - Active Staff] - Within 1 Month Disposition Disposition (needs filled in before D/C Order can be placed): Home, Self Care
[2024-11-11] MEDS: Pantoprazole Sodium 40 MG Tablet 80 MG PO (09:51)
[2024-11-11] MEDS: guaiFENesin/D-Methorphan TAB.SR.12H 2 TABLET PO (09:52)
[2024-11-11] MEDS: Aspirin 81 MG TAB.CHEW PO (09:53)
[2024-11-11] MEDS: buPROPion (SR) 150 MG Tablet.SA PO (09:53)
[2024-11-11] MEDS: Losartan Potassium 50 MG Tablet PO (09:53)
[2024-11-11] MEDS: 0.9% Saline Lock 10 ML Syringe IV (09:53)
[2024-11-11] MEDS: predniSONE 20 MG Tablet 40 MG PO (09:53)
[2024-11-11] MEDS: Ceftriaxone 1 GM/50 ML BAG IV (09:53)
[2024-11-11] MEDS: Insulin Lispro 100 UNIT/ML INSULN.PEN 20 UNIT SC ×2 (09:54→12:22)
[2024-11-11 11:59] LABS: Bedside Glucose 285 mg/dL (74-106)
--- NOTE | 2024-11-11 12:26 | PCM.DC.SUM ---
Providers Date of Admission: 11/07/24 Date of Discharge: 11/11/24 Primary Care Physician: Dr. Linwood Jules MD Reason For Visit: HYPOXIA,COPD,ASTHMA EXAC Diagnosis Discharge Diagnosis (1) Acute exacerbation of chronic obstructive pulmonary disease: Status: Chronic Code(s): J44.1 - Chronic obstructive pulmonary disease with (acute) exacerbation (2) Hypoxia: Status: Acute Code(s): R09.02 - Hypoxemia Plan Patient is a 49-year-old gentleman who presented with with recent diagnosis of influenza A progressive shortness of breath and hypoxia with oxygen saturation in the mid 70s and assessment of COPD/asthma exacerbation made admitted to regular nursing floor for further management 1. Acute hypoxia ? Secondary to COPD/asthma/viral bronchitis. Patient admitted to regular nursing floor treatment initiated with bronchodilator therapy, systemic steroid and antibiotics with supplemental oxygen titrated to keep saturation greater than 90 ? 11/09/2024; patient down to 2 L flow per minute. Patient however continues to experience persistent cough 11/10: Prematurity and culture growing gram-negative shannon, group B strep and staph. Chest x-ray shows no consolidation and reported negative. Sputum culture microinjury may be normal colonization. MRSA nasal screen negative. Triple PCR for SARS-CoV-2, flu and RSV are negative. Urinary antigens negative. 11/11: Patient got better with IV Solu-Medrol given yesterday. By mistake patient received double doses of aspirin 81 mg daily, prednisone 40 mg daily and Humalog 40 units. Blood pressure and glucose checked after 2 hours and remains in normal range. Glucose at 11:31 AM today 285 remains high even after getting double doses of Humalog. Patient is being discharged home on prolonged taper of prednisone. Patient has a inhaler at home. 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 Oxygen Home oxygen qualification ordered. Patient requires 2 L of oxygen at night. I have reviewed the oxygen testing, and this patient qualifies for the home equipment and portability. The patient is mobile in the home and the community. 2. Hypokalemia -Corrected per protocol 11/10: Mild hypokalemia K3.1. Potassium replaced 11/11: Hypokalemia-resolved 3. Hypertension ? Blood pressure controlled, home medications continued with dose adjustment as needed 4. Class III obesity with BMI of 54.6 5. Diabetes mellitus type 2 uncontrolled with hyperglycemia Patient glucose level on admission was 350. Did continue with patient home medication regimen in addition to Accu-Cheks before meals and at bedtime with sliding scale coverage ? 11/09/2024; patient blood glucose levels markedly elevated due to concomitant use of steroid. Did decrease patient's steroid dose. Did increase patient long-acting as well as scheduled Premeal insulin regimen. 11/10: Patient has hyperglycemia. Patient was put back on IV Solu-Medrol and therefore Humalog and Lantus insulin also increased. 11/11: Glucose at 11:31 AM today 285 remains high even after getting double doses of Humalog. 6. Hypertension - Blood pressure controlled, home medications continued with dose adjustment as needed 7. Dyslipidemia -Patient is on statin therapy, continued at home dose 8. GERD -Continue home PPI 9. PATRICIA - Consistent use of PAP therapy encouraged 10. Class III obesity with BMI of 55 ? Complicating care weight loss advised 10. Depression ? Patient is on bupropion did continue 11. DVT prophylaxis ?Enoxaparin 40 mg twice daily because of morbid obesity Discharge medication reconciliation done. Discharge follow-up instructions completed. Discharge process discussed with the patient and all questions were answered to patient's satisfaction. Follow with PCP in 1 to 2 weeks Total time spent, exact 35 minutes on discharge meds reconciliation, examination, coordination of care with nurses and ancillary staff, review of imaging and blood test and discussion with the patient on follow-up instructions. Medications at Discharge Home Medications aspirin 81 mg capsule 81 mg PO DAILY 12/28/21 albuterol sulfate 2.5 mg/3 mL (0.083 %) solution for nebulization 2.5 mg inhalation Q4H PRN shortness of breath or wheezing 01/20/23 bupropion HCl 150 mg tablet,12 hr sustained-release 150 mg PO DAILY 01/20/23 epinephrine 0.3 mg/0.3 mL injection, auto-injector 0.3 ml IM PRN allergic reaction 01/20/23 albuterol sulfate 90 mcg/actuation aerosol inhaler (Ventolin HFA) 4 puff inhalation Q4H PRN shortness of breath or wheezing 06/10/23 prednisone 20 mg tablet 20 mg PO DAILY 11/07/24 dextromethorphan-guaifenesin ER 60 mg-1,200 mg tab,extend release,12hr 1 tab PO BID 7 days #14 tabs 11/11/24 insulin glargine 100 unit/mL (3 mL) subcutaneous pen (Lantus Solostar U-100 Insulin) 30 unit (0.3 mL) subcut BID 30 days #15 mL 11/11/24 insulin lispro 100 unit/mL subcutaneous pen (Humalog KwikPen (U-100) Insulin) 20 unit (0.2 mL) subcut TID 30 days #4.5 mL 11/11/24 insulin lispro 100 unit/mL subcutaneous pen (Humalog KwikPen (U-100) Insulin) See Protocol subcut ACHS #0 mL 11/11/24 omeprazole 40 mg capsule,delayed release 40 mg PO DAILY 30 days #0 caps 11/11/24 prednisone 10 mg tablet 10 mg PO DAILY #30 tabs 11/11/24 Physical Exam Narrative Seen and examined. Patient feels improvement in shortness of breath wheezing and cough after IV Solu-Medrol given yesterday. Wants to go home. Physical exam General: Alert, Oriented x3, Cooperative, morbid obesity BMI 55.2 kg/m? HEENT: Atraumatic, PERRLA, EOMI, Normocephalic Oral: No Gingival or Mucosal Lesions/ Ulcerations Neck: Supple, No JVD, Negative Carotid Bruits Chest wall/Lungs: Air entry diminished in bilateral lung bases. Bilateral expiratory wheezing and rhonchi but improved Cardiovascular: Regular rate, Regular Rhythm, Normal S1, Normal S2, No M/G/R Abdomen: Bowel Sounds Present, Soft, Non Tender, Non-Distended : No dysuria. No renal angle tenderness. No suprapubic tenderness. Extremities: No edema, Capillary Refill Less than 3 Seconds Skin: No rashes, No breakdown Musculoskeletal: No Tenderness to Palpation of Joints or Extremities Neurological: Cranial nerves II-XII grossly intact, DTR 2+/4. No acute focal neurological deficit. Psych/Mental Status: Normal Affect, Appropriate. Weight / BMI Weight Weight: 342 lb 9.573 oz Body Mass Index (BMI) 55.0 ABG / Lab / Microbiology Data 11/11/24 05:30 11/11/24 05:30 Laboratory: Laboratory Results - last 24 hr 11/10/24 16:22: POC Glucose 429 H 11/10/24 21:57: POC Glucose 382 H 11/11/24 05:30: WBC 9.5, RBC 5.19, Hgb 14.3, Hct 43.0, MCV 82.9, MCH 27.6, MCHC 33.3, RDW Std Deviation 42.4, RDW Coeff of Antonia 14.2, Plt Count 283, MPV 9.3, Immature Gran % (Auto) 4.100 H, Neut % (Auto) 79.5 H, Lymph % (Auto) 12.5 L, [place] % (Auto) 3.5, Eos % (Auto) 0.0, Baso % (Auto) 0.4, Absolute Neuts (auto) 7.5, Absolute Lymphs (auto) 1.19, Nucleated RBC % 0, Sodium 139, Potassium 3.8, Chloride 103, Carbon Dioxide 25.2, Anion Gap 11, BUN 9, Creatinine 0.65 L, Estim Creat Clear Calc 199.59, Est GFR (MDRD) Non-Af 117, BUN/Creatinine Ratio 13.9, Glucose 313 H, Calcium 8.2 11/11/24 06:50: POC Glucose 312 H 11/11/24 11:31: POC Glucose 285 H Microbiology: Microbiology 11/07/24 19:40 Sputum, Expectorated/Coughed Gram Stain - Final 11/07/24 19:40 Sputum, Expectorated/Coughed Respiratory Culture - Preliminary Pseudomonas aeruginosa Streptococcus agalactiae (B) Staphylococcus aureus Presumptive C albicans 11/10/24 14:30 Sputum, Expectorated/Coughed Respiratory Culture - Preliminary Appears to be normal respiratory garfield. Further studies to follow. 11/07/24 19:40 Urine, Clean Catch Legionella Antigen - Final 11/07/24 19:40 Urine, Clean Catch Streptococcus pneumoniae Antigen (M - Final 11/07/24 16:35 Mucosa - Nasopharyngeal Respiratory Panel (PCR) - Final 11/07/24 16:50 Nasal Secretion MRSA (PCR) - Final 11/07/24 11:13 Mucosa - Nose SARS-CoV-2, Influenza & RSV (PCR) - Final D/C Instructions Discharge Diet: Low fat / Low cholesterol and 1800 Calorie Control Diet Weight Bearing Status: Weight bearing as tolerated Call your doctor if you observe: Fever of 101 or Higher, Coldness, Increased Pain, Numbness or Tingling, Change in Color, Inability to urinate, Inability to have a bowel movement, Shortness of breath, Dizziness, Fainting spells, Swelling in the ankles, Chest pain, Prolonged hiccupping, Increased palpitations (irregular heartbeat) and Calf discomfort DC O2, CPAP, BIPAP Needs Home O2 Discharge instructions: Yes Type of respiratory needs?: Oxygen Oxygen frequency: With Sleeping Oxygen liters per minute when sleepin DC home with Oxygen: Yes Home O2 MD Review: I have reviewed the oxygen testing, and the patient qualifies for home oxygen equipment and portability. The patient is mobile in the home and the community. When: IN 2 WEEKS Meaningful Use Info Meaningful Use Meaningful Use Diagnoses (Choose all that apply): None applicable Ischemic Stroke Statin Dosing Therapy Reference: STATIN DOSE THERAPY REFERENCE: * Patients > 75 years receive moderate or high dose statin therapy. * Patients 75 years or YOUNGER should receive HIGH intensity statin dose unless contraindicated. You will be required to document reason for non-treatment if statin daily dose does not meet guidelines. HIGH DOSE STATIN THERAPY DAILY Atorvastatin > than or = to 40 mg Rosuvastatin > than or = to 20 mg Amlodipine + Atorvastatin > than or = to 2.5/40 mg Ezetimibe + Simvastatin 10/80 mg Simvastatin 80mg Discharge Plan Admission Admit Date/Time: 11/07/24 13:37 Attending Provider: Patel Yeager Primary Care Provider: Linwood Jules Consulting Providers: Destini Gold; Arnol Perez Discharge Orders/Prescriptions Prescriptions: New dextromethorphan-guaifenesin 60-1,200 mg tablet extended release 12 hr 1 tab PO BID 7 Days Qty: 14 0RF insulin lispro [Humalog KwikPen Insulin] 100 unit/mL Insulin Pen See Protocol subcut ACHS Qty: 0 0RF Protocol: 5. Sliding Scale Insulin High Dosing Condition: 150-209 mg/dl = 3 units Condition: 210-259 mg/dl = 6 units Condition: 260-324 mg/dl = 9 units Condition: 325-374 mg/dl = 12 units Condition: 375-409 mg/dl = 14 units Condition: 410-449 mg/dl = 16 units Condition: Greater than 449 call physician Protocol Text: Suggested for: - Patients on Total Daily Insulin Dose of 81-120 units - Very insulin resistant patients HIGH DOSING ALGORITHM prednisone 10 mg tablet 10 mg PO DAILY Qty: 30 0RF Rx Instructions: 40 mg for 3 days 30 mg for 3 days, 20 mg for 3 days,and 10 mg for 3 days Continued aspirin 81 mg Capsule 81 mg PO DAILY albuterol sulfate 2.5 mg /3 mL (0.083 %) solution for nebulization 2.5 mg inhalation Q4H PRN (Reason: shortness of breath or wheezing) Patient Comments: USE 1 VIAL IN NEBULIZER EVERY 4 HOURS NEEDED FOR WHEEZING OR SHORTNESS OF BREATH. USE OVER 5 TO 15 MINUTES. bupropion HCl 150 mg tablet sustained-release 12 hr 150 mg PO DAILY Patient Comments: SUPPOSE TO RESTART HAS NOT. epinephrine 0.3 mg/0.3 mL auto-injector 0.3 ml IM PRN Patient Comments: INJECT CONTENTS OF 1 PEN NEEDED FOR ALLERGIC REACTION. albuterol sulfate [Ventolin HFA] 90 mcg/actuation HFA aerosol inhaler 4 puff INHALATION Q4H PRN (Reason: shortness of breath or wheezing) Patient Comments: pt states my pulmonary doctor says take 4 puffs Rx Instructions: INHALE 2 PUFFS BY MOUTH EVERY 4 HOURS NEEDED FOR WHEEZING OR SHORTNESS OF BREATH prednisone 20 mg tablet 20 mg PO DAILY Changed omeprazole 40 mg capsule,delayed release(DR/EC) 40 mg PO DAILY 30 Days Qty: 0 0RF insulin lispro [Humalog KwikPen Insulin] 100 unit/mL insulin pen 20 unit subcut TID 30 Days Qty: 4.5 5RF insulin glargine [Lantus Solostar U-100 Insulin] 100 unit/mL (3 mL) insulin pen 30 unit subcut BID 30 Days Qty: 15 4RF Rx Instructions: Hold if glucose less than 130 mg/dl Referrals / Follow Up: Jl Castrejon DO [Med Staff - Active Staff] - Within 1 Month Linwood Jules MD [Primary Care Provider] - In 1 Week Disposition Disposition (needs filled in before D/C Order can be placed): Home, Self Care Charges/Coding Visit Charges Inpatient E&M: 49757 Disch Hosp >30min
== END 2024-11-11 14:47 | disposition home or self-care (01) | DRG 191 ==
LOC: ED 12:39 → MS2 13:54 → MS3 11-08 18:18
PROVIDERS: Hospitalist; Internal Medicine; Nurse Practitioner; Admitting Provider Family Medicine; Emergency Provider Emergency Medicine; PCP Internal Medicine; Visit Provider Internal Medicine
DX: J44.1 Chronic obstructive pulmonary disease with (acute) exacerbation (principal); Z68.43 Body mass index [BMI] 50.0-59.9, adult; E11.65 Type 2 diabetes mellitus with hyperglycemia; I10 Essential (primary) hypertension; F32.A Depression, unspecified; E78.5 Hyperlipidemia, unspecified; Z79.4 Long term (current) use of insulin; E87.6 Hypokalemia; G47.33 Obstructive sleep apnea (adult) (pediatric); J10.1 Influenza due to other identified influenza virus with other respiratory manifestations; K21.9 Gastro-esophageal reflux disease without esophagitis; F41.9 Anxiety disorder, unspecified; J20.9 Acute bronchitis, unspecified; Z83.3 Family history of diabetes mellitus; R09.02 Hypoxemia; Z87.891 Personal history of nicotine dependence; Z79.82 Long term (current) use of aspirin; Z82.49 Family history of ischemic heart disease and other diseases of the circulatory system; E66.813 Obesity, class 3; Z99.89 Dependence on other enabling machines and devices; Z79.899 Other long term (current) drug therapy; Z79.52 Long term (current) use of systemic steroids; Z79.51 Long term (current) use of inhaled steroids
CPT/HCPCS: 36415; 71046; 80048; 80053; 82803; 82947; 82962; 83036; 83605; 83735; 83880; 84100; 84145; 84484; 85025; 87070; 87077; 87184; 87186; 87205; 87449; 87631; 87633; 87641; 93005; 94640; 94668; 94762; 97802; 99285; A4216

== ENCOUNTER → 2025-06-12 | Outpatient (CLI) | payer OTHER, SELFPAY ==
[2025-06-12 12:16] LABS: Hematocrit 44.7 % (40-54); Hemoglobin 14.3 g/dL (13.0-16.5); Immature Granulocytes Count 0.050 X10^3/uL (0.0-0.0); Mean Corp Hgb Conc 32.0 g/dL (32-36); Mean Corpuscular Volume 85.5 fL (80-94); Mean Platelet Vol. 9.9 fl (6.2-12.0); NRBC Flagged by Analyzer 0 % (0-5); Platelet Count 240 K/mm3 (150-450); RBC Distribution Width CV 14.5 % (11.6-14.6); RBC Distribution Width SD 45.5 fl (35.1-43.9); Red Blood Count 5.23 M/mm3 (4.6-6.2); White Blood Count 8.2 K/mm3 (4.4-11.0)
[2025-06-12 13:15] LABS: AST(SGOT) 26 U/L (<=37); Alanine Aminotransfer ALT/SGPT 30 U/L (<=46); Albumin, Serum 4.2 g/dL (3.5-5.0); Alkaline Phosphatase 91 U/L (40-129); Anion Gap 13 (5-15); BUN 14 mg/dL (4-19); BUN/Creat Ratio 18.0 RATIO (10-20); Calcium,Total 9.3 mg/dL (7.6-11.0); Carbon Dioxide 22.9 mmol/L (21.0-32.0); Chloride 103 mmol/L (98-108); Cholesterol 215 mg/dL (<=200); Globulin 3.2 g/dL (2.2-4.2); Glucose 162 mg/dL (70-99); Low Density Lipoprotein Calc. 131 mg/dL; Potassium 4.5 mmol/L (3.3-5.1); Pro- Brain NATRIURETIC PEPTIDE < 36 pg/mL (<=450); Triglycerides 137 mg/dL; Very Low Density Lipoprotein 27 mg/dL (5-40); cholesterol:hdl ratio screen 3.59
== END | disposition home or self-care (01) ==
LOC: VSLAB 09:53
PROVIDERS: PCP Internal Medicine; Referring Provider Nurse Practitioner Family; Visit Provider Nurse Practitioner Family
DX: E11.9 Type 2 diabetes mellitus without complications (principal); E78.2 Mixed hyperlipidemia; I10 Essential (primary) hypertension; I20.89 Other forms of angina pectoris
CPT/HCPCS: 36415; 80053; 80061; 83036; 83880; 85025

== ENCOUNTER → 2025-07-25 | Outpatient (CLI) | payer OTHER, SELFPAY ==
--- NOTE | 2025-07-25 09:47 | ECHOCS_ITS ---
Reason For Study Reason For Study: CHEST PAIN, PALPITATIONS Procedure This was a 2D Doppler, Color Flow transthoracic echocardiogram. The patient is in sinus rhythm. The study was technically difficult. Contrast injection was performed. Exam performed in department. Left Ventricle Normal-sized left ventricle. Normal left ventricular wall thickness. Left ventricular EF by Andujar's biplane: 69%. Normal left ventricular diastolic function. No regional wall motion abnormalities noted. Right Ventricle Normal right ventricle. Normal systolic function. Unable to estimate RV systolic pressure due to insufficient tricuspid regurgitant envelope. Atria The left and right atria are normal. Estimated RA pressure: 8 mmHg. Normal atrial septum. Mitral Valve Normal mitral valve. No mitral stenosis. No mitral regurgitation. Tricuspid Valve Normal tricuspid valve. No tricuspid stenosis. No tricuspid regurgitation. Aortic Valve Trileaflet aortic valve. No hemodynamically significant aortic stenosis. No aortic regurgitation. Pulmonic Valve Normal pulmonic valve. Trace pulmonic regurgitation. No pulmonic stenosis. Great Vessels Normal sized aortic root. Ascending aorta diameter: 3.7 cm. Pericardium/Pleural No pericardial effusion. Medication 22 gauge I.V. with prn adaptor inserted into left arm. Diluted definity 2ml given slow IV push to enhance endocardial definition. MMode/2D Measurements & Calculations LVIDd: 5.0 cm IVSd: 1.1 cm Ao root diam: 3.7 cm LVIDs: 3.0 cm LVPWd: 1.2 cm RVDd: 4.1 cm FS: 39.9 % LAV(MOD-bp): 47.7 ml LVAd ap4: 40.8 cm2 LVAd ap2: 35.1 cm2 LAV(MOD-bp) Indexed: 18.7 ml/m2 LVLd ap4: 9.1 cm LVLd ap2: 8.6 cm LAV(MOD-sp2): 40.4 ml EDV(MOD-sp4): 150.2 ml EDV(MOD-sp2): 115.4 ml LAV(MOD-sp4): 49.9 ml EDV(sp4-el): 155.9 ml EDV(sp2-el): 121.1 ml LVAs ap4: 20.1 cm2 LVAs ap2: 17.6 cm2 LVLs ap4: 7.4 cm LVLs ap2: 7.0 cm ESV(MOD-sp4): 44.2 ml ESV(MOD-sp2): 36.1 ml ESV(sp4-el): 46.2 ml ESV(sp2-el): 37.4 ml EF(MOD-sp4): 70.6 % EF(MOD-sp2): 68.7 % EF(sp4-el): 70.4 % SV(MOD-sp4): 106.0 ml SV(MOD-sp2): 79.3 ml EDV(MOD-bp): 134.3 ml SI(MOD-sp4): 41.6 ml/m2 SI(MOD-sp2): 31.1 ml/m2 ESV(MOD-bp): 40.2 ml EF(MOD-bp): 70.1 % SV(sp4-el): 109.7 ml LA A4 area: 19.0 cm2 LA dimension(2D): 3.7 cm RA A4 area: 15.2 cm2 TAPSE: 2.0 cm Time Measurements MV dec time: 0.24 sec Doppler Measurements & Calculations MV E max domenico: 88.2 cm/sec Lat Peak E' Domenico: 9.9 cm/sec Med Peak E' Domenico: 11.4 cm/sec MV A max domenico: 110.8 cm/sec E/E' lat: 8.9 E/E' med: 7.7 MV E/A: 0.80 MV dec slope: 362.9 cm/sec2 Ao V2 max: 199.1 cm/sec LV V1 max: 146.9 cm/sec Ao max P.9 mmHg LV V1 max P.6 mmHg Ao V2 mean: 124.9 cm/sec LV V1 mean P.0 mmHg Ao mean P.4 mmHg LV V1 mean: 90.9 cm/sec Ao V2 VTI: 34.2 cm LV V1 VTI: 24.2 cm AV (velocity ratio): 0.71 PA V2 max: 121.0 cm/sec ECHO/Echo Complete W/ Contrast Interpretation Summary Normal left ventricular systolic function, with EF: 69% by Andujar's biplane Normal left ventricular diastolic function Normal right ventricular systolic function No hemodynamically significant valvular disease Ordering Physician: Arnol Moss Referring Physician: Catherine Virk Performed By: Kai Bazan RDCS
== END | disposition home or self-care (01) ==
LOC: CVS 09:46
PROVIDERS: PCP Nurse Practitioner Family; Referring Provider Student in an Organized Health Care Education/Training Program; Visit Provider Student in an Organized Health Care Education/Training Program
DX: I07.1 Rheumatic tricuspid insufficiency (principal); R07.9 Chest pain, unspecified; R00.2 Palpitations
CPT/HCPCS: 93306; Q9957; A4216; C8929